=== PATIENT | male | born 1965 | race Caucasian/White ===

== ENCOUNTER 2019-08-18 21:45 | Inpatient (IN) | payer MEDICARE, MEDICAID, SELFPAY ==
[2019-08-18 21:48] VITALS: BP 116/69; PULSE 109; RESP 16; TEMP 35.5; O2SAT 98; BMI 23.5
--- NOTE | 2019-08-18 22:42 | CT_ITS ---
STUDY: CT ABDOMEN AND PELVIS WITHOUT CONTRAST REASON FOR EXAM: Male, 54 years old patient with abdominal pain, back pain and vomiting. Blood glucose of 20 on arrival to ER. RADIATION DOSAGE (If Supplied By Facility): CTDIvol = ( 8.19 ) mGy, DLP = ( 452.35 ) mGycm TECHNIQUE: Transaxial images were obtained from the dome of the diaphragm to the symphysis pubis without oral contrast, and without intravenous contrast. Sagittal and coronal images were reconstructed. Several images have a respiratory artifact. Individualized dose optimization techniques were used for this CT. COMPARISON: None. FINDINGS: The visualized lung bases are unremarkable. The visualized portions of the heart are within normal limits. There is decreased attenuation of the liver consistent with steatosis. Normal gallbladder and extrahepatic biliary system. Normal spleen. Normal pancreas. Normal bilateral adrenal glands. Normal right kidney. Normal left kidney. The stomach is very distended with fluid. There is no obvious dilated bowel, ascites or pneumoperitoneum. There is minimal stool visible in the colon with most of the colon nondistended. There is fatty infiltration of the hepatic flexure colon wall. The appendix is visualized and appears normal. There is minimal atherosclerotic calcification of the abdominal aorta, without a demonstrated aneurysm. The IVC is slitlike suggesting hypovolemia and/or dehydration. Normal retroperitoneum. Urinary bladder is not distended secondary to Perez catheter. Normal visualized prostate gland. There is diastases recti with what may represent an umbilical hernia containing fat. Respiratory motion of the ribs mimics potential rib fracture. A rib fracture cannot be excluded particularly on the right. Imaged thoracic and lumbar vertebral bodies have normal height and alignment. CT/Abdomen/Pelvis without Cont IMPRESSION: 1. Slitlike IVC suggests the sequela of hypovolemia and dehydration. 2. Hepatic steatosis. 3. Fluid-filled distended stomach suggests possible sequela of gastroparesis. 4. Nonspecific thickening of the wall of the hepatic flexure of the colon may be the result of previous or chronic infection or inflammation. Electronically Signed: Kanwal Morales MD at 0:44 EST , Service support ,
--- NOTE | 2019-08-18 22:43 | RAD_ITS ---
STUDY: X-RAY CHEST REASON FOR EXAM: Male, 54 years old. VOMITING SINCE TUESDAY, DIARRHEA STARTED TODAY. WEAKNESS AND CONFUSION TECHNIQUE: Single AP portable view of the chest. COMPARISON: None. FINDINGS: The lungs are clear and expanded. There is no demonstrated pleural abnormality. Normal size heart. Normal mediastinum and berta. Normal visualized pulmonary arteries. Normal visualized aortic arch and descending thoracic aorta. There are diffuse degenerative changes of the visualized thoracic spine. Normal visualized ribs, clavicles, and shoulders. There is no demonstrated abnormality of the visualized soft tissue structures of the upper abdomen. RAD/Chest 1 View (Portable) IMPRESSION: No acute process Electronically Signed: Elie Davis MD at 23:52 EST , Service support ,
[2019-08-18 22:47] LABS: Absolute Lymphocyte Count 5.88 X10^3/uL (0.83-4.51); Absolute Neutrophil Count 20.9 X10^3/uL (2.0-7.7); Basophil# 0.15 X10^3/uL; Basophil% 0.5 % (0-1); Eosinophil# 0.06 X10^3/uL; Eosinophils% 0.2 % (0-5); Hematocrit 50.1 % (40-54); Hemoglobin 15.3 g/dL (13.0-16.5); Lymphocyte # 5.88 X10^3/ul (4.0); Lymphocyte % 20.6 % (19-41); Mean Corp Hgb Conc 30.5 g/dL (32-36); Mean Corpuscular Hgb 29.1 pg (27.0-32.0); Mean Corpuscular Volume 95.2 fL (80-94); Mean Platelet Vol. 10.7 fl (6.2-12.0); Monocyte# 1.11 X10^3/uL; Monocyte% 3.9 % (0-10); NRBC Flagged by Analyzer 0 % (0-5); Neutrophil # 20.94 X10^3/uL (2.7-7.7); Neutrophil % 73.2 % (47-70); POSITIVE DIFFERENTIAL YES; Platelet Count 389 K/mm3 (150-450); RBC Distribution Width CV 13.8 % (11.6-14.6); RBC Distribution Width SD 48.6 fl (35.1-43.9); Red Blood Count 5.26 M/mm3 (4.6-6.2); White Blood Count 28.6 K/mm3 (4.4-11.0)
--- NOTE | 2019-08-18 22:49 | ED.VIS.GEN ---
History of Present Illness Chief Complaint: Weakness Narrative: Patient is a 54-year-old male who presents with nausea vomiting and diarrhea. He has had nausea and vomiting for the past 2 to 3 days up to 4-5 episodes per day. Much of the history is provided by his sister as he is disoriented. They noted that he was disoriented today and the patient stated he felt like he was on drugs. He also developed diarrhea today. He complains of lower back pain. No abdominal pain. He is also complaining of sore throat. He was seen at a [facility] yesterday and prescribed an oral solution to swish and spit of viscous lidocaine, Benadryl, antacid. Past Medical History - Allergies and Home Meds Allergies/Adverse Reactions: Allergies No Known Allergies Allergy (Verified 08/18/19 21:50) Primary Care Physician: Alexa Cramer [Primary Care Provider] - Past Medical History: - - Diabetes, hypertension, hyperlipidemia Review of Systems All systems negative except as indicated General: Denies: Fever Eyes: Denies: Visual changes - bilaterally ENT: Reports: Sore throat. Denies: Bilateral ear pain Cardiovascular: Denies: Chest pain Respiratory: Denies: Dyspnea Gastrointestinal: Reports: Nausea, Vomiting, Diarrhea. Denies: Abdominal pain Musculoskeletal: Reports: Back pain. Denies: Myalgias, Arthralgias Skin: Denies: Rash Neurological: Reports: - - Confusion. Denies: Headache Endocrine: Denies: Polyuria Hematologic: Denies: Easy bruising Allergy: Denies: Uticaria Physical Exam Vital Signs/Narrative: Vital Signs Temp Pulse Resp BP Pulse Ox 08/18/19 21:48 96 F L 109 H 16 116/69 98 Inital Vital Signs reviewed: Yes General: No Acute Distress Head: Normocephalic Eyes: EOMI ENT: Dry mucous membranes Neck: Supple Cardiovascular: Regular rhythm, Tachycardia Respiratory: No distress, CTA bilaterally Abdomen: Soft, Nontender, Nondistended Back: Nontender. Negative for: CVA tenderness Extremities: Nontender Skin: Normal color Neurological: - - Patient is alert but disoriented Psychological: Normal affect Diagnostic/Tx/Re-eval Impressions Abdomen/Pelvis CT 08/18/19 22:42 IMPRESSION: 1. Slitlike IVC suggests the sequela of hypovolemia and dehydration. 2. Hepatic steatosis. 3. Fluid-filled distended stomach suggests possible sequela of gastroparesis. 4. Nonspecific thickening of the wall of the hepatic flexure of the colon may be the result of previous or chronic infection or inflammation. Electronically Signed: Kanwal Morales MD at 0:44 EST , Service support , Chest X-Ray 08/18/19 22:43 IMPRESSION: No acute process Electronically Signed: Elie Davis MD at 23:52 EST , Service support , 08/18/19 22:42 CT Abd [Abdomen/Pelvis without Cont] [CT] Stat 08/18/19 22:43 CXR [Chest 1 View (Portable)] [RAD] Stat 08/19/19 00:01 Abdomen Single View (Portable) [RAD] Stat 08/18/19 23:30 Mucosa - Nasopharyngeal Influenza Types A,B Direct FA ([facility]) - Final Laboratory Results 08/18/19 08/18/19 08/18/19 22:39 22:39 22:39 WBC 28.6 H RBC 5.26 Hgb 15.3 Hct 50.1 MCV 95.2 H MCH 29.1 MCHC 30.5 L RDW Std Deviation 48.6 H RDW Coeff of Sotero 13.8 Plt Count 389 MPV 10.7 Immature Gran % (Auto) 1.600 H Neut % (Auto) 73.2 H Lymph % (Auto) 20.6 [place] % (Auto) 3.9 Eos % (Auto) 0.2 Baso % (Auto) 0.5 Absolute Neuts (auto) 20.9 H Absolute Lymphs (auto) 5.88 H Nucleated RBC % 0 Differential Comment SCANNED RBC Morphology NORM C+C PT 15.2 H INR 1.2 APTT 33.4 Sodium 139 Potassium 3.1 L Chloride 85 L Carbon Dioxide 7.0 L* Anion Gap 47 H BUN 86 H Creatinine 11.30 H* Estim Creat Clear Calc 7.15 Est GFR (MDRD) Af Amer 6 L Est GFR (MDRD) Non-Af 5 L BUN/Creatinine Ratio 7.6 L Glucose 27 L* Lactic Acid Calcium 9.8 Total Bilirubin 0.40 Direct Bilirubin 0.20 AST 25 ALT 51 Alkaline Phosphatase 116 Total Protein 8.8 H Albumin 4.3 Globulin 4.5 H Lipase 229 Urine Color Urine Clarity Urine pH Ur Specific [place] Urine Protein Urine Glucose (UA) Urine Ketones Urine Occult Blood Urine Nitrite Urine Bilirubin Urine Urobilinogen Ur Leukocyte Esterase Urine RBC Urine WBC Ur Squamous Epith Cells Amorphous Sediment Urine Bacteria Hyaline Casts Coarse Granular Casts Urine Mucus POC Glucose 08/18/19 08/18/19 08/18/19 22:39 22:44 23:17 WBC RBC Hgb Hct MCV MCH MCHC RDW Std Deviation RDW Coeff of Sotero Plt Count MPV Immature Gran % (Auto) Neut % (Auto) Lymph % (Auto) [place] % (Auto) Eos % (Auto) Baso % (Auto) Absolute Neuts (auto) Absolute Lymphs (auto) Nucleated RBC % Differential Comment RBC Morphology PT INR APTT Sodium Potassium Chloride Carbon Dioxide Anion Gap BUN Creatinine Estim Creat Clear Calc Est GFR (MDRD) Af Amer Est GFR (MDRD) Non-Af BUN/Creatinine Ratio Glucose Lactic Acid 26.3 H* Calcium Total Bilirubin Direct Bilirubin AST ALT Alkaline Phosphatase Total Protein Albumin Globulin Lipase Urine Color Urine Clarity Urine pH Ur Specific [place] Urine Protein Urine Glucose (UA) Urine Ketones Urine Occult Blood Urine Nitrite Urine Bilirubin Urine Urobilinogen Ur Leukocyte Esterase Urine RBC Urine WBC Ur Squamous Epith Cells Amorphous Sediment Urine Bacteria Hyaline Casts Coarse Granular Casts Urine Mucus POC Glucose 24 L* 237 H 08/18/19 23:36 WBC RBC Hgb Hct MCV MCH MCHC RDW Std Deviation RDW Coeff of Sotero Plt Count MPV Immature Gran % (Auto) Neut % (Auto) Lymph % (Auto) [place] % (Auto) Eos % (Auto) Baso % (Auto) Absolute Neuts (auto) Absolute Lymphs (auto) Nucleated RBC % Differential Comment RBC Morphology PT INR APTT Sodium Potassium Chloride Carbon Dioxide Anion Gap BUN Creatinine Estim Creat Clear Calc Est GFR (MDRD) Af Amer Est GFR (MDRD) Non-Af BUN/Creatinine Ratio Glucose Lactic Acid Calcium Total Bilirubin Direct Bilirubin AST ALT Alkaline Phosphatase Total Protein Albumin Globulin Lipase Urine Color Ashli Urine Clarity Sl. Cloudy Urine pH 5.0 Ur Specific [place] 1.025 Urine Protein 500 H Urine Glucose (UA) Normal Urine Ketones 5 H Urine Occult Blood 25 H Urine Nitrite Positive H Urine Bilirubin 6 H Urine Urobilinogen 1 H Ur Leukocyte Esterase 100 H Urine RBC 0 SEEN Urine WBC 5-10 SEEN Ur Squamous Epith Cells 5-10 SEEN Amorphous Sediment 3+ Urine Bacteria 1+ Hyaline Casts 25-50 SEEN Coarse Granular Casts 0-5 SEEN Urine Mucus 0 SEEN POC Glucose - Medical Decision Making BGT on arrival to the room was 23. There is a shortage of D50, initially D25 was ordered but we then recognized that this was the pediatric syringes that were available. We were then able to get D50 from pharmacy. Repeat blood sugar greater than 200. Patient was initially treated with IV fluids, Toradol, Zofran for symptomatic relief. After dextrose patient became more alert. He began to complain of abdominal pressure. Labs began to return. Patient was found to be in acute renal failure with a creatinine of 11 and severe acidosis with a bicarbonate of 7. Patient has a white blood cell count of greater than 28,000 and was empirically covered with IV Zosyn. VBG was obtained which shows pH 6.8, PCO2 19, PO2 122. Lactic acid is 26. Hepatic function and lipase are unremarkable. Urinalysis does show positive nitrites. Patient felt like he needed to void so a Perez catheter was placed. He only had about 50 cc of dark yellow urine out. CT of the abdomen and pelvis showed a significantly distended stomach, possible gastroparesis. Additionally had findings of hepatic steatosis as well as some possible thickening of the hepatic flexure of the colon. NG placed and had about 1 L of bilious material out and had significant relief of his abdominal pressure. A total of 3 L of IV fluid was given here in the emergency department. It is possible that everything is related to gastroparesis with severe hypovolemia but infectious process is not ruled out. On reevaluation patient has no abdominal pain. Abdomen remains soft. Patient will be discussed with the hospitalist and admitted. - Critical Care Time Critical care time (excluding procedures): 30-74 minutes, Discussing w/Patient &/or Family/Mechanical Maintenance Supervisor, Discussing w/Consultants, Performing Direct Patient Care at Bedside ED Disposition - Plan for ED Patient: Disposition: Acute Care [facility] Diagnosis: Metabolic acidosis, Gastroparesis, Lactic acidosis, UTI (urinary tract infection), Acute renal failure Referrals: Alexa Cramer [Primary Care Provider] -
[2019-08-18 22:50] LABS: Bedside Glucose 24 mg/dL (70-110)
[2019-08-18 22:53] LABS: Differential Indicated SCAN CRITERIA MET
[2019-08-18 22:58] LABS: International Normalized Ratio 1.2; Prothrombin Time (Protime)PT. 15.2 SECONDS (11.7-14.9)
[2019-08-18 22:59] LABS: Partial Thromboplast Time 33.4 Seconds (24.1-36.2)
[2019-08-18] MEDS: Ketorolac 30 MG/ML Syringe IV (23:02)
[2019-08-18] MEDS: Ondansetron 4 MG/2 ML Vial IV (23:02)
[2019-08-18] MEDS: 0.9% Normal Saline 1,000 ML 1000 ML IV (23:03)
[2019-08-18] MEDS: Dextrose 50%-Water 25 GM/50 ML DISP.SYRIN IV (23:05)
[2019-08-18 23:10] LABS: AST(SGOT) 25 U/L (15-37); Alanine Aminotransfer ALT/SGPT 51 U/L (16-61); Albumin, Serum 4.3 g/dL (3.2-5.0); Alkaline Phosphatase 116 U/L (45-117); Anion Gap 47 (5-15); BUN 86 mg/dL (7-18); BUN/Creat Ratio 7.6 RATIO (10-20); Calcium,Total 9.8 mg/dL (8.5-10.1); Chloride 85 mmol/L (98-107); EST Glomerular Filtration Rate 5 mL/min (>60); Est Glom Filt Rate - Afr Amer 6 mL/min (>60); Estimated Creatinine Clearance 7.15 ml/min; Globulin 4.5 g/dL (2.2-4.2); Glucose 27 mg/dL (74-106); Lipase 229 U/L (73-393); Potassium 3.1 mmol/L (3.5-5.1); Protein, Total 8.8 g/dL (6.4-8.2); Sodium Level 139 mmol/L (136-145)
[2019-08-18 23:12] VITALS: BP 158/117; PULSE 120; RESP 13; O2SAT 100
[2019-08-18 23:16] LABS: Differential Comment SCANNED; Red Cell Morphology NORM C+C NORMAL (NORM C&C)
[2019-08-18 23:21] LABS: Bedside Glucose 237 mg/dL (70-110)
[2019-08-18] MEDS: Morphine 4 MG/ML Syringe IV (23:24)
[2019-08-18 23:38] LABS: Lactic Acid 26.3 mmol/L (0.4-1.9)
--- NOTE | 2019-08-18 23:38 | ED.RN ---
notified Dr. Garza of lactic 26.3
[2019-08-18] MEDS: 0.9% Normal Saline 1,000 ML 999 ML IV (23:40)
[2019-08-18 23:42] LABS: Mucous, Urine 0 SEEN /hpf (<or=2+); Red Blood Cells-Urine 0 SEEN /hpf (0-5)
[2019-08-18 23:45] LABS: Color, Urine Amber (Yellow); Glucose, Dipstick Normal (Normal); Ketone-Dipstick 5 mg/dl (Negative); Leukocyte Esterase-Dipstick 100 /ul (Negative); Nitrite-Dipstick Positive (Negative); Occult Blood-Urine 25 /ul (Negative); Protein-Dipstick 500 mg/dl (Negative); Specific Gravity, Urine 1.025 (1.002-1.030); Urine Clarity Sl. Cloudy (Clear); Urine Urobilinogen 1 mg/dl (Normal)
[2019-08-18 23:46] LABS: Urine Bilirubin Dipstick 6 mg/dL (Negative)
[2019-08-18 23:59] LABS: Hyaline Cast 25-50 SEEN /lpf (0-5); Squamous Epithelial Cells - UA 5-10 SEEN /hpf (0-5)
[2019-08-19] VITALS (52 sets, daily range): BP systolic 68–137; BP diastolic 45–85; PULSE 110–139; RESP 9–48; TEMP 35.4–36.6; O2SAT 95–100; BMI 27.8
[2019-08-19] LABS: Amorphous Sediment 3+; Bacteria 1+ /hpf (None Seen); Coarse Granular Cast 0-5 SEEN /lpf (0-5 /lpf); White Blood Cells 5-10 SEEN /hpf (0-5)
--- NOTE | 2019-08-19 00:01 | RAD_ITS ---
HISTORY: NG tube placement FINDINGS: # of images incl. paperwork: 1 Frontal view of the chest and abdomen demonstrates a nasogastric tube in the stomach in adequate position. RAD/Abdomen Single View (Portable) IMPRESSION: NGT in adequate position. at 0203 Reported and signed by: Young Smith MD Electronically Signed: Young Smith MD at 2:02 EST Tel , Service support ,
--- NOTE | 2019-08-19 00:41 | CPS ---
Addendum entered by Patricia Correa 08/19/19 00:45: DR KHAN was called results of vbg not Dr Arita Original Note: critical values from venous blood gas were called to Dr Arita 08-18-19 2350 ph 6.88 pco2 19.2 hco3 03.6
[2019-08-19] MEDS: 0.9% Normal Saline 1,000 ML 999 ML IV (01:11)
[2019-08-19 01:13] LABS: Blood Gas Specimen Type VEN; O2 Delivery Device Room Air; SITE OTHER
[2019-08-19 01:14] LABS: Time Given 2345
[2019-08-19 01:15] LABS: VBG Bicarbonate 4 mmol/L (22-26); VBG PO2 122 mmHg (25-40); VBG pCO2 19.2 mmHg (41-51); VBG pH 6.88 (7.32-7.42)
[2019-08-19 01:16] LABS: VBG BASE EXCESS -30 mmol/L (-1.0-3.5); VBG Oxygen Content < 5 mmol/L (23-33); VBG SO2 95 % (50-70)
--- NOTE | 2019-08-19 01:21 | HP.PCM_ITS ---
Problem List (1) Septic shock Status: Acute (2) Hypoglycemia Status: Acute (3) Metabolic acidosis Status: Acute (4) Gastroparesis Status: Acute (5) Lactic acidosis Status: Acute (6) UTI (urinary tract infection) Status: Acute (7) Acute renal failure Status: Acute History of Present Illness Date of Admission: 08/19/19 Chief Complaint: NAUSEA, VOMITING AND DIARRHEA The patient is a 54 year old M with a significant history of mental retardation; anxiety disorder; ADHD; hyperlipidemia; hypertension; and diabetes who presents emergency department with a 3-day history of nausea and vomiting. On the day of presentation he also developed diarrhea. However over the past 2 to 3 days he had decreased urine output and his bowels had not moved except on the day of presentation where he had 2 loose bowel movements; one at home and one at emergency department. At the emergency department he had tachycardia; and tachypnea. He had leukocytosis with a white count of 28,600; and bandemia. VBG showed a pH of seven 6.88. His bicarbonate was 7.0. His glucose was 27. And his lactic acid was 26.3. His creatinine was 11.30. His estimated creatinine clearance was 7.15. And his GFR was 5. Abdominal and pelvis CT showed slitlike IVC suggesting sequela of hypovolemia and dehydration as well as fluid-filled distended stomach suggesting possible sequela of gastroparesis; among others. NG tube and Perez catheter was placed at emergency department. His urinalysis was abnormal. A day before presentation patient went to a [facility] for sore throat and was found to have enlarged tonsils and he was given a swish and swallow medication of lidocaine/Benadryl/antacids. Past Medical History Medical History: Medical History (Last Updated 08/19/19 @ 03:[address] Ranjan Rocha MD) Diabetes mellitus E11.9 Hyperlipidemia E78.5 Hypertension I10 Allergies No Known Allergies Allergy (Verified 08/18/19 21:50) Home Medications: Ambulatory Orders Medication Instructions Recorded Atorvastatin Calcium [Lipitor] 20 mg PO QHS 08/19/19 Cholecalciferol (VIT D3) [Vitamin 50,000 unit PO QWEEK 08/19/19 D] Glimepiride 1 mg PO DAILY 08/19/19 Hydrochlorothiazide 25 mg PO DAILY 08/19/19 Losartan Potassium 50 mg PO DAILY 08/19/19 Metformin HCl 1,000 mg PO BID 08/19/19 Nitroglycerin 0.4 mg SL DAILY PRN 08/19/19 Ondansetron [Zofran Odt] 4 - 8 mg PO Q8H PRN PRN 08/19/19 Surgical History: - - Tube in tympanic membrane Lives: With Family Smoking Status: Current every day smoker Tobacco Use: Cigarettes Alcohol: None - *Family History Maternal History Items: Diabetes, Hypertension, - - Anxiety Paternal History Items: Seizures Review of Systems Constitutional: Reports: Anorexia, Malaise. Denies: Weight Change HEENT: Denies: Head Aches, Sinus Congestion, Sinus Drainage Cardiovascular: Denies: Chest Pain, Palpitations Respiratory: Denies: Cough, Shortness of breath at rest, Sputum production Gastrointestinal: Reports: Abdominal Pain, Nausea, Vomiting Genitourinary: Reports: Frequency - Decreased urination. Denies: Dysuria Musculoskeletal: Denies: Joint Pain, Joint Tenderness Skin: Denies: Rash, Wounds Neurological: Denies: Numbness, Tingling, Focal weakness Psychiatric: Denies: Anxiety, Depression, Homicidal Ideations, Suicidal Ideations Hematologic/ Lymphatic: Denies: Easy Bruising, Easy Bleeding VTE Information - Inpt Only VTE Present on Admission: No VTE Mechan Device Prophylaxis: None VTE Pharm Prophylaxis ordered?: Yes Patient Problems: Active and Suspected Problems (Last Updated 08/19/19 @ 03:[address] Ranjan Rocha MD) Metabolic acidosis (Acute) Gastroparesis (Acute) Lactic acidosis (Acute) UTI (urinary tract infection) (Acute) Acute renal failure (Acute) Septic shock (Acute) Hypoglycemia (Acute) - Physical Exam Vitals/I&O's: Vital Signs Temp Pulse Resp BP Pulse Ox 96 F L 116 H 33 H 137/77 H 99 08/18/19 21:48 08/19/19 00:34 08/19/19 00:34 08/19/19 00:34 08/19/19 00:34 Oxygen Delivery Method Room Air Weight: 68.039 kg Body Mass Index (BMI) 23.5 Finger Stick Blood Glucose 24 Intake and Output for Last 24 Hours 08/17/19 08/18/19 08/19/19 23:59 23:59 23:59 Intake Total 1100 / 1100 Balance 1100 / 1100 General: Alert, Oriented x3, Cooperative HEENT: Atraumatic, EOMI, Normocephalic Neck: Supple, No JVD, Negative Carotid Bruits Lungs: Clear to auscultation, Normal air movement, Tachypneic, Using Accessory Muscles Cardiovascular: Normal S1, Normal S2, No murmurs, Tachycardic Abdomen: Soft, Non Tender, Hypoactive Bowel Sounds Extremities: No edema, Capillary Refill Less than 3 Seconds Skin: No rashes, No breakdown Musculoskeletal: No Tenderness to Palpation of Joints or Extremities Neurological: Cranial nerves II-XII grossly intact Psych/Mental Status: Restless Microbiology Past 72 Hours 08/18/19 23:30 Mucosa - Nasopharyngeal Influenza Types A,B Direct FA ([facility]) - Final Laboratory Results 08/18/19 22:39: WBC 28.6 H, RBC 5.26, Hgb 15.3, Hct 50.1, MCV 95.2 H, MCH 29.1, MCHC 30.5 L, RDW Std Deviation 48.6 H, RDW Coeff of Sotero 13.8, Plt Count 389, MPV 10.7, Immature Gran % (Auto) 1.600 H, Neut % (Auto) 73.2 H, Lymph % (Auto) 20.6, [place] % (Auto) 3.9, Eos % (Auto) 0.2, Baso % (Auto) 0.5, Absolute Neuts (auto) 20.9 H, Absolute Lymphs (auto) 5.88 H, Nucleated RBC % 0, Differential Comment SCANNED, RBC Morphology NORM C+C 08/18/19 22:39: PT 15.2 H, INR 1.2, APTT 33.4 08/18/19 22:39: Sodium 139, Potassium 3.1 L, Chloride 85 L, Carbon Dioxide 7.0 L*, Anion Gap 47 H, BUN 86 H, Creatinine 11.30 H*, Estim Creat Clear Calc 7.15, Est GFR (MDRD) Af Amer 6 L, Est GFR (MDRD) Non-Af 5 L, BUN/Creatinine Ratio 7.6 L, Glucose 27 L*, Calcium 9.8, Total Bilirubin 0.40, Direct Bilirubin 0.20, AST 25, ALT 51, Alkaline Phosphatase 116, Total Protein 8.8 H, Albumin 4.3, Globulin 4.5 H, Lipase 229 08/18/19 22:39: Lactic Acid 26.3 H* 08/18/19 22:44: POC Glucose 24 L* 08/18/19 23:17: POC Glucose 237 H 08/18/19 23:36: Urine Color Ashli, Urine Clarity Sl. Cloudy, Urine pH 5.0, Ur Specific [place] 1.025, Urine Protein 500 H, Urine Glucose (UA) Normal, Urine Ketones 5 H, Urine Occult Blood 25 H, Urine Nitrite Positive H, Urine Bilirubin 6 H, Urine Urobilinogen 1 H, Ur Leukocyte Esterase 100 H, Urine RBC 0 SEEN, Urine WBC 5-10 SEEN, Ur Squamous Epith Cells 5-10 SEEN, Amorphous Sediment 3+, Urine Bacteria 1+, Hyaline Casts 25-50 SEEN, Coarse Granular Casts 0-5 SEEN, Urine Mucus 0 SEEN 08/18/19 23:45: Specimen Type SCARLET, Sample Site OTHER, VBG pH 6.88 L*, VBG pO2 122 H, VBG O2 Sat (Calc) 95 H, VBG O2 Content < 5 L, VBG Base Excess -30 L, POC Mix VBG pCO2 Pt Tmp 19.2 L, O2 Delivery Device Room Air, Blood Gas Notified Whom ED MD, Blood Gas Notified Time 2345 Current Medications Sodium Chloride () 1,000 mls @ 50 mls/hr IV .Q20H BALTAZAR Assessment/Plan All Active Problems (Last Updated 08/19/19 @ 03:[address] Ranjan Rocha MD) Metabolic acidosis (Acute) Gastroparesis (Acute) Lactic acidosis (Acute) UTI (urinary tract infection) (Acute) Acute renal failure (Acute) Septic shock (Acute) Hypoglycemia (Acute) The patient is a 54 year old M with a significant history of mental retardation; anxiety disorder; ADHD; hyperlipidemia; hypertension; and diabetes who presents emergency department with nausea; vomiting; diarrhea and found to have tachycardia; tachypnea; leukocytosis with a white count of 28,600; and bandemia; VBG with pH of seven 6.88; bicarbonate of 7.0; glucose of 27 and lactic acid of 26.3 ; creatinine of 11.30; abnormal urinalysis; and Abdominal and pelvis CT showed slitlike IVC suggesting sequela of hypovolemia and dehydration as well as fluid-filled distended stomach suggesting possible sequela of gastroparesis; consistent with septic shock and probable diabetic gastroparesis. Septic shock Lactic acid: 26.3 RR: Highest documented of 33. Heart rate: Highest documented of 120 Patient with abdominal symptoms and abnormal urinalysis. Septic shock likely from gastroenteritis and UTI. Blood culture ?2 is pending Urine culture ordered. Influenza screen is negative. Received IV fluids 30 MS per kilogram bolus per septic shock protocol at the emergency department. Antibiotics: Patient was given Zosyn in the emergency department Zosyn continued. 50 amp of bicarbonate ordered and then dextrose with bicarbonate infusion. Hold home blood pressure medications in the setting of blood pressure trending low. Morphine as needed for pain. Enteropathogenic panel. C. difficile ordered. Zofran PRN for nausea and vomiting. Compazine PRN for nausea and vomiting. Acid Polymerization Operator consult. NASRIN Creatinine of 11.30. Estimated creatinine clearance of 7.15. GFR of 5. Likely prerenal from CVA dehydration and intrinsic renal from toxins from septic shock. Hold home hydrochlorthiazide and losartan. Avoid nephrotoxic's. IV fluids as above. Urinary studies. Nephrology consult. Diabetic gastroparesis with hyperglycemia Patient received dextrose infusion at emergency department with good response.. Trend blood glucose. Hold home glimepiride and metformin. History of hypertension Hold home blood pressure medication in the setting of blood pressure trended on the low side. Tobacco abuse Counseled Nicotine patch ordered. DVT prophylaxis Subcutaneous heparin. Code Visit Inpatient E&M: 67888 Init Hosp L3
--- NOTE | 2019-08-19 02:26 | SEPSISNOTE ---
Sepsis Note - Physical Exam/Vitals Objective: Abdomen/Pelvis CT 08/18/19 22:42 IMPRESSION: 1. Slitlike IVC suggests the sequela of hypovolemia and dehydration. 2. Hepatic steatosis. 3. Fluid-filled distended stomach suggests possible sequela of gastroparesis. 4. Nonspecific thickening of the wall of the hepatic flexure of the colon may be the result of previous or chronic infection or inflammation. Electronically Signed: Kanwal Morales MD at 0:44 EST , Service support , Chest X-Ray 08/18/19 22:43 IMPRESSION: No acute process Electronically Signed: Elie Davis MD at 23:52 EST , Service support , KUB X-Ray 08/19/19 00:01 IMPRESSION: NGT in adequate position. at 0203 Reported and signed by: Young Smith MD Electronically Signed: Young Smith MD at 2:02 EST Tel , Service support , Temp Pulse Resp BP Pulse Ox 96 F L 110 H 28 H 97/60 100 08/18/19 21:48 08/19/19 02:15 08/19/19 02:15 08/19/19 02:15 08/19/19 02:15 08/18/19 08/18/19 08/18/19 23:45 23:36 23:17 WBC RBC Hgb Hct MCV MCH MCHC RDW Std Deviation RDW Coeff of Sotero Plt Count MPV Immature Gran % (Auto) Neut % (Auto) Lymph % (Auto) [place] % (Auto) Eos % (Auto) Baso % (Auto) Absolute Neuts (auto) Absolute Lymphs (auto) Nucleated RBC % Differential Comment RBC Morphology PT INR APTT Specimen Type SCARLET Sample Site OTHER VBG pH 6.88 L* VBG pO2 122 H VBG O2 Sat (Calc) 95 H VBG O2 Content < 5 L VBG Base Excess -30 L POC Mix VBG pCO2 Pt Tmp 19.2 L O2 Delivery Device Room Air Blood Gas Notified Whom ED Blood Gas Notified Time 2345 Sodium Potassium Chloride Carbon Dioxide Anion Gap BUN Creatinine Estim Creat Clear Calc Est GFR (MDRD) Af Amer Est GFR (MDRD) Non-Af BUN/Creatinine Ratio Glucose Lactic Acid Calcium Total Bilirubin Direct Bilirubin AST ALT Alkaline Phosphatase Total Protein Albumin Globulin Lipase Urine Color Ashli Urine Clarity Sl. Cloudy Urine pH 5.0 Ur Specific [place] 1.025 Urine Protein 500 H Urine Glucose (UA) Normal Urine Ketones 5 H Urine Occult Blood 25 H Urine Nitrite Positive H Urine Bilirubin 6 H Urine Urobilinogen 1 H Ur Leukocyte Esterase 100 H Urine RBC 0 SEEN Urine WBC 5-10 SEEN Ur Squamous Epith Cells 5-10 SEEN Amorphous Sediment 3+ Urine Bacteria 1+ Hyaline Casts 25-50 SEEN Coarse Granular Casts 0-5 SEEN Urine Mucus 0 SEEN POC Glucose 237 H 08/18/19 08/18/19 08/18/19 22:44 22:39 22:39 WBC RBC Hgb Hct MCV MCH MCHC RDW Std Deviation RDW Coeff of Sotero Plt Count MPV Immature Gran % (Auto) Neut % (Auto) Lymph % (Auto) [place] % (Auto) Eos % (Auto) Baso % (Auto) Absolute Neuts (auto) Absolute Lymphs (auto) Nucleated RBC % Differential Comment RBC Morphology PT INR APTT Specimen Type Sample Site VBG pH VBG pO2 VBG O2 Sat (Calc) VBG O2 Content VBG Base Excess POC Mix VBG pCO2 Pt Tmp O2 Delivery Device Blood Gas Notified Whom Blood Gas Notified Time Sodium 139 Potassium 3.1 L Chloride 85 L Carbon Dioxide 7.0 L* Anion Gap 47 H BUN 86 H Creatinine 11.30 H* Estim Creat Clear Calc 7.15 Est GFR (MDRD) Af Amer 6 L Est GFR (MDRD) Non-Af 5 L BUN/Creatinine Ratio 7.6 L Glucose 27 L* Lactic Acid 26.3 H* Calcium 9.8 Total Bilirubin 0.40 Direct Bilirubin 0.20 AST 25 ALT 51 Alkaline Phosphatase 116 Total Protein 8.8 H Albumin 4.3 Globulin 4.5 H Lipase 229 Urine Color Urine Clarity Urine pH Ur Specific [place] Urine Protein Urine Glucose (UA) Urine Ketones Urine Occult Blood Urine Nitrite Urine Bilirubin Urine Urobilinogen Ur Leukocyte Esterase Urine RBC Urine WBC Ur Squamous Epith Cells Amorphous Sediment Urine Bacteria Hyaline Casts Coarse Granular Casts Urine Mucus POC Glucose 24 L* 08/18/19 08/18/19 22:39 22:39 WBC 28.6 H RBC 5.26 Hgb 15.3 Hct 50.1 MCV 95.2 H MCH 29.1 MCHC 30.5 L RDW Std Deviation 48.6 H RDW Coeff of Sotero 13.8 Plt Count 389 MPV 10.7 Immature Gran % (Auto) 1.600 H Neut % (Auto) 73.2 H Lymph % (Auto) 20.6 [place] % (Auto) 3.9 Eos % (Auto) 0.2 Baso % (Auto) 0.5 Absolute Neuts (auto) 20.9 H Absolute Lymphs (auto) 5.88 H Nucleated RBC % 0 Differential Comment SCANNED RBC Morphology NORM C+C PT 15.2 H INR 1.2 APTT 33.4 Specimen Type Sample Site VBG pH VBG pO2 VBG O2 Sat (Calc) VBG O2 Content VBG Base Excess POC Mix VBG pCO2 Pt Tmp O2 Delivery Device Blood Gas Notified Whom Blood Gas Notified Time Sodium Potassium Chloride Carbon Dioxide Anion Gap BUN Creatinine Estim Creat Clear Calc Est GFR (MDRD) Af Amer Est GFR (MDRD) Non-Af BUN/Creatinine Ratio Glucose Lactic Acid Calcium Total Bilirubin Direct Bilirubin AST ALT Alkaline Phosphatase Total Protein Albumin Globulin Lipase Urine Color Urine Clarity Urine pH Ur Specific [place] Urine Protein Urine Glucose (UA) Urine Ketones Urine Occult Blood Urine Nitrite Urine Bilirubin Urine Urobilinogen Ur Leukocyte Esterase Urine RBC Urine WBC Ur Squamous Epith Cells Amorphous Sediment Urine Bacteria Hyaline Casts Coarse Granular Casts Urine Mucus POC Glucose General: Alert, Oriented x3, Cooperative Lungs: Clear to auscultation, Normal air movement Cardiovascular: Normal S1, Normal S2, Tachycardic Capillary Refill: <3 seconds Peripheral Pulses: Normal Skin Color: [place] - Assessment/Plan Septic shock Received normal saline 30 mm/kg bolus per septic shock protocol. Blood cultures was ordered emergency department follow-up. Urine culture ordered. Trend lactic acid. Place patient on bicarbonate drip because of severe metabolic acidosis. Placed on Zosyn; continue Zosyn.
[2019-08-19 02:49] LABS: Reflex Lactate? Y
[2019-08-19] MEDS: Sodium Bicarbonate 8.4% 50 ML Syringe 50 MEQ IV (02:55)
[2019-08-19] MEDS: Potassium Chloride 10mEq/100mL 10 MEQ/100 ML IV.SOLN. 100 MEQ IV BOLUS (02:58)
[2019-08-19 03:01] LABS: Bedside Glucose 185 mg/dL (70-110)
[2019-08-19 03:01] LABS: Absolute Lymphocyte Count 4.53 X10^3/uL (0.83-4.51); Absolute Neutrophil Count 24.1 X10^3/uL (2.0-7.7); Basophil# 0.11 X10^3/uL; Basophil% 0.3 % (0-1); Eosinophil# 0.03 X10^3/uL; Eosinophils% 0.1 % (0-5); Hematocrit 40.3 % (40-54); Hemoglobin 12.2 g/dL (13.0-16.5); Lymphocyte # 4.53 X10^3/ul (4.0); Lymphocyte % 14.2 % (19-41); Mean Corp Hgb Conc 30.3 g/dL (32-36); Mean Corpuscular Hgb 29.3 pg (27.0-32.0); Mean Corpuscular Volume 96.9 fL (80-94); Mean Platelet Vol. 10.9 fl (6.2-12.0); Monocyte# 2.55 X10^3/uL; NRBC Flagged by Analyzer 0 % (0-5); Neutrophil # 24.11 X10^3/uL (2.7-7.7); Neutrophil % 75.8 % (47-70); POSITIVE COUNT YES; POSITIVE DIFFERENTIAL YES; Platelet Count 318 K/mm3 (150-450); RBC Distribution Width CV 14.1 % (11.6-14.6); RBC Distribution Width SD 50.2 fl (35.1-43.9); Red Blood Count 4.16 M/mm3 (4.6-6.2); White Blood Count 31.9 K/mm3 (4.4-11.0)
[2019-08-19 03:10] LABS: Magnesium 2.4 mg/dL (1.6-2.6)
[2019-08-19 03:17] LABS: Differential Indicated SCAN CRITERIA MET
[2019-08-19 03:33] LABS: Differential Comment SCANNED
[2019-08-19 03:36] LABS: Anion Gap 46 (5-15); BUN 79 mg/dL (7-18); BUN/Creat Ratio 7.8 RATIO (10-20); Calcium,Total 7.6 mg/dL (8.5-10.1); Chloride 92 mmol/L (98-107); EST Glomerular Filtration Rate 6 mL/min (>60); Est Glom Filt Rate - Afr Amer 7 mL/min (>60); Estimated Creatinine Clearance 7.16 ml/min; Glucose 178 mg/dL (74-106); Phosphorus 15.6 mg/dL (2.5-4.9); Potassium 4.5 mmol/L (3.5-5.1); Sodium Level 141 mmol/L (136-145)
--- NOTE | 2019-08-19 03:55 | PCM.CONS.GEN ---
Reason for Consult Date of Consultation: 08/19/19 Reason for Consultation: Emergent dialysis access History of Present Illness: The patient is a 54 year old M to the ER due to nausea vomiting and one episode of diarrhea per notes/family.. Patient been feeling very fatigued over the last 4 days he did go to urgent care on Tuesday and was told that his tonsil was a little bit red and it was given swish and swallow for treatment. Patient continued to have increasing nausea and vomiting and did present to the ER. On admission had a white blood cell count of 28, creatinine of 11, lactic acid of 26, blood sugar of 27 was found to be in acute kidney failure and septic with a UTI. Discussed with nephrology and they want to do emergent dialysis, patient was admitted to the ICU. Per family patient had not been feeling well for about 4 days. NG placed in the ER which put out 2 L initially. Past Medical History Medical History: Medical History (Last Updated 08/19/19 @ 03:[address] Ranjan Rocha MD) Diabetes mellitus E11.9 Hyperlipidemia E78.5 Hypertension I10 Allergies No Known Allergies Allergy (Verified 08/18/19 21:50) Home Medications: Ambulatory Orders Medication Instructions Recorded Atorvastatin Calcium [Lipitor] 20 mg PO QHS 08/19/19 Cholecalciferol (VIT D3) [Vitamin 50,000 unit PO QWEEK 08/19/19 D] Glimepiride 1 mg PO DAILY 08/19/19 Hydrochlorothiazide 25 mg PO DAILY 08/19/19 Losartan Potassium 50 mg PO DAILY 08/19/19 Metformin HCl 1,000 mg PO BID 08/19/19 Nitroglycerin 0.4 mg SL DAILY PRN 08/19/19 Ondansetron [Zofran Odt] 4 - 8 mg PO Q8H PRN PRN 08/19/19 Surgical History: - - Tube in tympanic membrane Lives: With Family Smoking Status: Current every day smoker Tobacco Use: Cigarettes Alcohol: None - *Family History Maternal History Items: Diabetes, Hypertension, - - Anxiety Paternal History Items: Seizures Review of Systems Unable to obtain accurate/complete ROS d/t: Unable to obtain patient is lethargic Patient Problems: Active and Suspected Problems (Last Updated 08/19/19 @ 03:[address] Ranjan Rocha MD) Metabolic acidosis (Acute) Gastroparesis (Acute) Lactic acidosis (Acute) UTI (urinary tract infection) (Acute) Acute renal failure (Acute) Septic shock (Acute) Hypoglycemia (Acute) - Physical Exam Vitals/I&O's: Vital Signs Temp Pulse Resp BP Pulse Ox 95.7 F L 113 H 29 H 86/57 L 100 08/19/19 02:45 08/19/19 03:30 08/19/19 03:30 08/19/19 03:30 08/19/19 03:30 Oxygen Delivery Method Room Air Weight: 161 lb 13.109 oz Body Mass Index (BMI) 27.8 Finger Stick Blood Glucose 287 Intake and Output for Last 24 Hours 08/17/19 08/18/19 08/19/19 23:59 23:59 23:59 Intake Total 3176.67 / 3176.67 Output Total 1450 / 1450 Balance 1726.67 / 1726.67 General: Cooperative, Lethargic HEENT: - - NG in place Lungs: Tachypneic Cardiovascular: Tachycardic Abdomen: Soft, Non Tender, Non-Distended Extremities: - - Mottling to the extremities especially at bilateral knees Skin: - - Mottling of some skin Psych/Mental Status: Depressed - Due to septic shock Microbiology Past 72 Hours 08/18/19 23:30 Mucosa - Nasopharyngeal Influenza Types A,B Direct FA (PAULETTE) - Final Laboratory Results 08/18/19 22:39: WBC 28.6 H, RBC 5.26, Hgb 15.3, Hct 50.1, MCV 95.2 H, MCH 29.1, MCHC 30.5 L, RDW Std Deviation 48.6 H, RDW Coeff of Sotero 13.8, Plt Count 389, MPV 10.7, Immature Gran % (Auto) 1.600 H, Neut % (Auto) 73.2 H, Lymph % (Auto) 20.6, [place] % (Auto) 3.9, Eos % (Auto) 0.2, Baso % (Auto) 0.5, Absolute Neuts (auto) 20.9 H, Absolute Lymphs (auto) 5.88 H, Nucleated RBC % 0, Differential Comment SCANNED, RBC Morphology NORM C+C 08/18/19 22:39: PT 15.2 H, INR 1.2, APTT 33.4 08/18/19 22:39: Sodium 139, Potassium 3.1 L, Chloride 85 L, Carbon Dioxide 7.0 L*, Anion Gap 47 H, BUN 86 H, Creatinine 11.30 H*, Estim Creat Clear Calc 7.15, Est GFR (MDRD) Af Amer 6 L, Est GFR (MDRD) Non-Af 5 L, BUN/Creatinine Ratio 7.6 L, Glucose 27 L*, Calcium 9.8, Total Bilirubin 0.40, Direct Bilirubin 0.20, AST 25, ALT 51, Alkaline Phosphatase 116, Total Protein 8.8 H, Albumin 4.3, Globulin 4.5 H, Lipase 229 08/18/19 22:39: Lactic Acid 26.3 H* 08/18/19 22:44: POC Glucose 24 L* 08/18/19 23:17: POC Glucose 237 H 08/18/19 23:36: Urine Color Ashli, Urine Clarity Sl. Cloudy, Urine pH 5.0, Ur Specific [place] 1.025, Urine Protein 500 H, Urine Glucose (UA) Normal, Urine Ketones 5 H, Urine Occult Blood 25 H, Urine Nitrite Positive H, Urine Bilirubin 6 H, Urine Urobilinogen 1 H, Ur Leukocyte Esterase 100 H, Urine RBC 0 SEEN, Urine WBC 5-10 SEEN, Ur Squamous Epith Cells 5-10 SEEN, Amorphous Sediment 3+, Urine Bacteria 1+, Hyaline Casts 25-50 SEEN, Coarse Granular Casts 0-5 SEEN, Urine Mucus 0 SEEN 08/18/19 23:45: Specimen Type SCARLET, Sample Site OTHER, VBG pH 6.88 L*, VBG pO2 122 H, VBG O2 Sat (Calc) 95 H, VBG O2 Content < 5 L, VBG Base Excess -30 L, POC Mix VBG pCO2 Pt Tmp 19.2 L, O2 Delivery Device Room Air, Blood Gas Notified Whom ED , Blood Gas Notified Time 4572 08/19/19 02:44: POC Glucose 185 H 08/19/19 02:45: Sodium 141, Potassium 4.5, Chloride 92 L, Carbon Dioxide 3.0 L*, Anion Gap 46 H, BUN 79 H, Creatinine 10.10 H*, Estim Creat Clear Calc 7.16, Est GFR (MDRD) Af Amer 7 L, Est GFR (MDRD) Non-Af 6 L, BUN/Creatinine Ratio 7.8 L, Glucose 178 H, Calcium 7.6 L, Phosphorus 15.6 H* 08/19/19 02:45: Magnesium 2.4 08/19/19 02:45: Hemoglobin A1c Pending 08/19/19 02:45: WBC 31.9 H*, RBC 4.16 L, Hgb 12.2 L, Hct 40.3, MCV 96.9 H, MCH 29.3, MCHC 30.3 L, RDW Std Deviation 50.2 H, RDW Coeff of Sotero 14.1, Plt Count 318, MPV 10.9, Immature Gran % (Auto) 1.600 H, Neut % (Auto) 75.8 H, Lymph % (Auto) 14.2 L, [place] % (Auto) 8.0, Eos % (Auto) 0.1, Baso % (Auto) 0.3, Absolute Neuts (auto) 24.1 H, Absolute Lymphs (auto) 4.53 H, Nucleated RBC % 0, Differential Comment SCANNED, Diff Path Review October08/19/19 02:45: Lactic Acid Pending Current Medications Enoxaparin Sodium (Lovenox) 30 mg SC DAILY [facility] Glucagon () 1 mg IM .X1 PRN PRN Reason: Hypoglycemia Sodium Bicarbonate 50 meq/ (Dextrose) 1,050 mls @ 150 mls/hr IV .Q7H BALTAZAR Last Admin: 08/19/19 02:59 Dose: 150 mls/hr Documented by: Piperacillin Sod/Tazobactam (Sod 3.375 gm/ Sodium Chloride) 50 mls @ 12.5 mls/hr IV Q12 [facility] Dextrose (Dextrose 10%-Water) 250 mls @ 999 mls/hr IV .Q16M PRN; Protocol PRN Reason: HYPOGLYCEMIA Sodium Chloride () 250 mls @ 15 mls/hr IV .[id number] PRN PRN Reason: Saline Flush Sodium Chloride () 250 mls @ 15 mls/hr IV .[id number] PRN PRN Reason: Additional IVPB Infusion Melatonin (Melatonin) 3 mg PO QHS PRN PRN PRN Reason: INSOMNIA Morphine Sulfate () 2 mg IV Q3H PRN PRN PRN Reason: Pain Score 6-10/10 Nicotine (Nicoderm Cq (Pbkc)) 14 mg TRANSDERM. DAILY BALTAZAR Ondansetron HCl (Zofran) 4 mg IV Q6H PRN PRN PRN Reason: NAUSEA/VOMITING Prochlorperazine Edisylate (Compazine Iv) 5 mg IV Q4H PRN PRN PRN Reason: Breakthrough Nausea/Vomiting Sodium Chloride () 10 - 40 ml IV UD PRN PRN Reason: SALINE FLUSH Assessment/Plan All Active Problems (Last Updated 08/19/19 @ 03:[address] Ranjan Rocha MD) Metabolic acidosis (Acute) Gastroparesis (Acute) Lactic acidosis (Acute) UTI (urinary tract infection) (Acute) Acute renal failure (Acute) Septic shock (Acute) Hypoglycemia (Acute) 54-year-old male with septic shock, acute kidney injury need for emergent dialysis Patient as well as his sister, Delfina, who is POA need for the dialysis catheter. Explained the procedure and risk including but not limited to bleeding, infection, injury to vessel, malfunction of the catheter, and etc. patient and sister had no further questions this time and agreed to proceed. Masha Hernandez M.D. Pager: [phone] [facility] [place] [address] [place] [address], [facility], [address] [place] [address] Office: [phone] Code Visit Inpatient E&M: 30011 Init Hosp L1
[2019-08-19 04:02] LABS: Lactic Acid 24.2 mmol/L (0.4-1.9)
[2019-08-19] MEDS: fentaNYL 100 MCG/2 ML Ampul 50 MCG IV (04:03)
[2019-08-19] MEDS: Heparin 10,000 UNITS/10 ML Vial 10000 UNITS IV (04:24)
--- NOTE | 2019-08-19 04:26 | RAD_ITS ---
We are attempting to reach an attending provider to discuss findings. An addendum with communication details will be sent when the communication is complete. HISTORY: DIALYSIS CATH PLCMNT EXAM: XR Chest 1 View COMPARISON: Yesterday FINDINGS: LINES/DEVICES: Esophagogastric tube's tip is below the diaphragm. A newly placed right large bore right IJ central venous catheter goes into the right subclavian and axillary vein, and does not terminate in the SVC. No pneumothorax LUNGS: No consolidation or effusion. MEDIASTINUM AND CARDIOVASCULAR STRUCTURES: Cardiac silhouette not enlarged. Central airways and mediastinal contour are unremarkable. Athersclerotic plaque within the aortic arch. BONES AND SOFT TISSUES: Thoracic spondylosis. RAD/Chest 1 View (Portable) IMPRESSION: Inadequate positioning of the large bore right IJ catheter. It enters into the right IJ, and then traverses laterally into the subclavian and axillary veins. It should be repositioned. Chronic interestitial changes. No radiographic evidence of acute cardiopulmonary disease. at 0558 Reported and signed by: Young Smith MD Electronically Signed: Young Smith MD at 5:57 EST Tel , Service support ,
--- NOTE | 2019-08-19 04:44 | NURSING ---
Dr Hernandez was in room with patient at 0405 am and started attempt to place temporary dialysis catheter at this time. Catheter was placed at 04:25am chest x-ray was obtained post insertion at this time. Dr Hernandez stated the line was not in the correct place and is now attempting to take patient to OR and place with a flouroscope at this time.
--- NOTE | 2019-08-19 04:46 | NURSING ---
Addendum entered by Ro Huggins 08/19/19 06:06: Placed in femoral vein not artery, error by this RN. Original Note: Dr Hernandez is now going to attempt to place the temporary dialysis catheter in the femoral artery at this time.
--- NOTE | 2019-08-19 05:07 | NURSING ---
0507 Temporary dialysis catheter procedure began by Dr. Hernandez. Location rt femoral. 0511 sucessful line placement. Line Okay to use per .
[2019-08-19] MEDS: Heparin 10,000 UNITS/10 ML Vial 4000 UNITS IV (05:11)
--- NOTE | 2019-08-19 05:23 | PCM.OPRPT ---
Report of Operation Date of Procedure: 08/19/19 Pre-Operative Diagnosis: Acute kidney injury need for dialysis access, sepsis Post-Operative Diagnosis: Same Surgery/Procedure Performed:: Insertion of temporary dialysis catheter right IJ and removal; insertion of temporary dialysis catheter right femoral vein Type of Anesthesia:: Local Estimated Blood Loss (mL): minimal Description of Procedure: Informed consent was obtained from the patient's sister who is the POA. The right neck was prepped draped in usual sterile fashion. A needle trocar was then inserted into the right internal jugular vein with ultrasound guidance and there was good aspiration of venous blood. A wire was then threaded into the needle trocar-passed easily. A small incision was made with an 11 blade knife at the wire entrance site. The dilator x2 with the introducer sheath attached was then placed over the wire via the Seldinger technique. Next the Mahurkar catheter 12 [place] x 16 cm (curved extensions) placed over the wire, initially was a kink in the wire within the catheter did pass easily. The catheter flushed and elvia well with saline. Catheter was also flushed with 1.3 cc of 1-10,000 of heparin. Hemostasis was assured. Dressing was placed at the catheter exit site. Catheter was sutured with 3-0 nylon sutures. The patient tolerated the procedure well. The operative chest x-ray was checked and the catheter was in the right subclavian/axillary vein. This was discussed with the patient as well as patient's sister plan was to remove and place a right femoral dialysis catheter as fluoroscopy is not available at night. The right internal jugular temporary dialysis catheter was removed and pressure was held for 20 minutes, good hemostasis-pressure dressing also placed. The right groin was prepped draped in usual sterile fashion. A needle trocar was then inserted into the right femoral vein with ultrasound guidance and there was good aspiration of venous blood. A wire was then threaded into the needle trocar-passed easily. A small incision was made with an 11 blade knife at the wire entrance site. The dilator x2 with the introducer sheath attached was then placed over the wire via the Seldinger technique. Next the Mahurkar catheter 12 [place] x 20 cm placed over the wire and passed easily. The catheter flushed and elvia well with saline. Catheter was also flushed with 1.3 cc of 1-10,000 of heparin. Hemostasis was assured. Dressing was placed at the catheter exit site. Catheter was sutured with 3-0 nylon sutures. Tolerated procedure well. - Complications Right IJ catheter tracked to the subclavian was removed and pressure held, a right femoral dialysis catheter was placed.
--- NOTE | 2019-08-19 06:35 | CON.PCM_ITS ---
Reason for Consult Date of Consultation: 08/19/19 Reason for Consultation: Septic Shock History of Present Illness: The patient is a 54-year-old male, with a history as outlined below, who presented to the emergency department on August 18 with complaints of altered mentation, generalized weakness, nausea, vomiting and self-limited diarrhea. The patient also reported the presence of low back pain. The patient is a current smoker of 2 packs of cigarettes per day for a multitude of years. He denies any shortness of breath, chest pain or cough. The patient reported to me that he was initially constipated but then did experience several episodes of diarrhea, which has since resolved. The patient is on metformin at home as well for his underlying diabetes mellitus. On presentation to the emergency department, the patient was initially noted to be hypothermic and tachycardic. He was also tachypneic, but able to maintain appropriate oxygen saturations on room air. Laboratory evaluation revealed an elevated white blood cell count to 29,000 with left shift. INR was normal at 1.2. Chemistry profile was notable for a potassium of 3.1, chloride of 85, bicarbonate of 7.0, elevated anion gap to 47, BUN of 86 and creatinine of 11.3. Glucose was low at 27. Lactate was significantly elevated at 26. Urinalysis was positive for nitrites and leukocyte esterase. 1+ urine bacteria was noted. A CT abdomen/pelvis was obtained which revealed hepatic steatosis, fluid-filled, distended stomach suggestive of gastroparesis and nonspecific thickening of the wall of the hepatic flexure of the colon, potentially secondary to chronic infection or inflammation. Initial plain film chest x-ray revealed no acute cardiopulmonary process. The patient was initially placed on IV Zosyn and received supplemental IV fluid hydration. He was admitted to the medical intensive care unit for further management. Overnight, following a discussion with nephrology, the patient was deemed to be a candidate for emergent dialysis. Attempts to place a subclavian temporary hemodialysis catheter was unsuccessful. Therefore, the temporary dialysis catheter was placed in the femoral vein. In addition to the aforementioned, the patient developed non-fluid responsive hypotension, which required the initiation of Levophed. Past Medical History Medical History: Medical History (Last Updated 08/19/19 @ 03:[address] Ranjan Rocha MD) Diabetes mellitus E11.9 Hyperlipidemia E78.5 Hypertension I10 Allergies No Known Allergies Allergy (Verified 08/18/19 21:50) Home Medications: Ambulatory Orders Medication Instructions Recorded Atorvastatin Calcium [Lipitor] 20 mg PO QHS 08/19/19 Cholecalciferol (VIT D3) [Vitamin 50,000 unit PO QWEEK 08/19/19 D] Glimepiride 1 mg PO DAILY 08/19/19 Hydrochlorothiazide 25 mg PO DAILY 08/19/19 Losartan Potassium 50 mg PO DAILY 08/19/19 Metformin HCl 1,000 mg PO BID 08/19/19 Nitroglycerin 0.4 mg SL DAILY PRN 08/19/19 Ondansetron [Zofran Odt] 4 - 8 mg PO Q8H PRN PRN 08/19/19 Surgical History: - - Tube in tympanic membrane Lives: With Family Smoking Status: Current every day smoker Tobacco Use: Cigarettes Alcohol: None - *Family History Maternal History Items: Diabetes, Hypertension, - - Anxiety Paternal History Items: Seizures Review of Systems Constitutional: Reports: Malaise, Weakness, Fatigue Eyes: Denies: Blurred vision, Double vision HEENT: Denies: Head Aches, Sinus Congestion, Sinus Drainage Cardiovascular: Denies: Chest Pain, Palpitations Respiratory: Denies: Cough, Shortness of Breath Gastrointestinal: Reports: Abdominal Pain, Diarrhea, Nausea, Vomiting Genitourinary: Reports: Retention Musculoskeletal: Reports: Back Pain Skin: Denies: Wounds Neurological: Denies: Numbness, Tingling, Focal weakness Psychiatric: Denies: Anxiety, Depression, Homicidal Ideations, Suicidal Ideations Hematologic/ Lymphatic: Reports: Anemia Patient Problems: Active and Suspected Problems (Last Updated 08/19/19 @ 03:[address] Ranjan Rocha MD) Metabolic acidosis (Acute) Gastroparesis (Acute) Lactic acidosis (Acute) UTI (urinary tract infection) (Acute) Acute renal failure (Acute) Septic shock (Acute) Hypoglycemia (Acute) Objective: The patient's most recent lab work, culture data and imaging studies have all been personally reviewed. - Physical Exam Vitals/I&O's: Vital Signs Temp Pulse Resp BP Pulse Ox 97.0 F L 121 H 24 H 105/58 L 100 08/19/19 04:00 08/19/19 06:00 08/19/19 06:00 08/19/19 06:00 08/19/19 06:00 Oxygen Delivery Method Room Air Weight: 161 lb 13.109 oz Body Mass Index (BMI) 27.8 Finger Stick Blood Glucose 287 Intake and Output for Last 24 Hours 08/17/19 08/18/19 08/19/19 23:59 23:59 23:59 Intake Total 3379.80 / 3379.80 Output Total 1450 / 1450 Balance 1929.80 / 1929.80 General: Alert, Cooperative, - - Quite ill in appearance. Sitting upright in bed. HEENT: Atraumatic, PERRLA, Normocephalic Oral: Dry Mucosa Neck: Supple, No Nodes, Trachea Midline Lungs: No rhonchi, No wheeze, No rales, Diminished, Tachypneic Cardiovascular: Normal S1, Normal S2, No murmurs, Tachycardic Abdomen: Bowel Sounds Present, Soft, Non-Distended, Tender Extremities: No clubbing, No cyanosis, No edema, - - Mottled lower extremities. Femoral temporary HD line in place Skin: No breakdown Musculoskeletal: No Tenderness to Palpation of Joints or Extremities Lymphatic: No Cervical, Supraclavicular, or Inguinal Adenopathy Neurological: Neuro grossly intact Psych/Mental Status: Normal Affect, Appropriate Labs (Last 48 Hours) 08/18/19 08/18/19 08/18/19 22:39 22:39 22:39 WBC 28.6 H RBC 5.26 Hgb 15.3 Hct 50.1 MCV 95.2 H MCH 29.1 MCHC 30.5 L RDW Std Deviation 48.6 H RDW Coeff of Sotero 13.8 Plt Count 389 MPV 10.7 Immature Gran % (Auto) 1.600 H Neut % (Auto) 73.2 H Lymph % (Auto) 20.6 Victoria % (Auto) 3.9 Eos % (Auto) 0.2 Baso % (Auto) 0.5 Absolute Neuts (auto) 20.9 H Absolute Lymphs (auto) 5.88 H Nucleated RBC % 0 Differential Comment SCANNED Diff Path Review RBC Morphology NORM C+C PT 15.2 H INR 1.2 APTT 33.4 Specimen Type Sample Site VBG pH VBG pO2 VBG O2 Sat (Calc) VBG O2 Content VBG Base Excess POC Mix VBG pCO2 Pt Tmp O2 Delivery Device Blood Gas Notified Whom Blood Gas Notified Time Sodium 139 Potassium 3.1 L Chloride 85 L Carbon Dioxide 7.0 L* Anion Gap 47 H BUN 86 H Creatinine 11.30 H* Estim Creat Clear Calc 7.15 Est GFR (MDRD) Af Amer 6 L Est GFR (MDRD) Non-Af 5 L BUN/Creatinine Ratio 7.6 L Glucose 27 L* Hemoglobin A1c Lactic Acid Calcium 9.8 Phosphorus Magnesium Total Bilirubin 0.40 Direct Bilirubin 0.20 AST 25 ALT 51 Alkaline Phosphatase 116 Total Protein 8.8 H Albumin 4.3 Globulin 4.5 H Lipase 229 Urine Color Urine Clarity Urine pH Ur Specific [place] Urine Protein Urine Glucose (UA) Urine Ketones Urine Occult Blood Urine Nitrite Urine Bilirubin Urine Urobilinogen Ur Leukocyte Esterase Urine RBC Urine WBC Ur Squamous Epith Cells Amorphous Sediment Urine Bacteria Hyaline Casts Coarse Granular Casts Urine Mucus POC Glucose 08/18/19 08/18/19 08/18/19 22:39 22:44 23:17 WBC RBC Hgb Hct MCV MCH MCHC RDW Std Deviation RDW Coeff of Sotero Plt Count MPV Immature Gran % (Auto) Neut % (Auto) Lymph % (Auto) [place] % (Auto) Eos % (Auto) Baso % (Auto) Absolute Neuts (auto) Absolute Lymphs (auto) Nucleated RBC % Differential Comment Diff Path Review RBC Morphology PT INR APTT Specimen Type Sample Site VBG pH VBG pO2 VBG O2 Sat (Calc) VBG O2 Content VBG Base Excess POC Mix VBG pCO2 Pt Tmp O2 Delivery Device Blood Gas Notified Whom Blood Gas Notified Time Sodium Potassium Chloride Carbon Dioxide Anion Gap BUN Creatinine Estim Creat Clear Calc Est GFR (MDRD) Af Amer Est GFR (MDRD) Non-Af BUN/Creatinine Ratio Glucose Hemoglobin A1c Lactic Acid 26.3 H* Calcium Phosphorus Magnesium Total Bilirubin Direct Bilirubin AST ALT Alkaline Phosphatase Total Protein Albumin Globulin Lipase Urine Color Urine Clarity Urine pH Ur Specific [place] Urine Protein Urine Glucose (UA) Urine Ketones Urine Occult Blood Urine Nitrite Urine Bilirubin Urine Urobilinogen Ur Leukocyte Esterase Urine RBC Urine WBC Ur Squamous Epith Cells Amorphous Sediment Urine Bacteria Hyaline Casts Coarse Granular Casts Urine Mucus POC Glucose 24 L* 237 H 08/18/19 08/18/19 08/19/19 23:36 23:45 02:44 WBC RBC Hgb Hct MCV MCH MCHC RDW Std Deviation RDW Coeff of Sotero Plt Count MPV Immature Gran % (Auto) Neut % (Auto) Lymph % (Auto) [place] % (Auto) Eos % (Auto) Baso % (Auto) Absolute Neuts (auto) Absolute Lymphs (auto) Nucleated RBC % Differential Comment Diff Path Review RBC Morphology PT INR APTT Specimen Type SCARLET Sample Site OTHER VBG pH 6.88 L* VBG pO2 122 H VBG O2 Sat (Calc) 95 H VBG O2 Content < 5 L VBG Base Excess -30 L POC Mix VBG pCO2 Pt Tmp 19.2 L O2 Delivery Device Room Air Blood Gas Notified Whom ED MD Blood Gas Notified Time 2345 Sodium Potassium Chloride Carbon Dioxide Anion Gap BUN Creatinine Estim Creat Clear Calc Est GFR (MDRD) Af Amer Est GFR (MDRD) Non-Af BUN/Creatinine Ratio Glucose Hemoglobin A1c Lactic Acid Calcium Phosphorus Magnesium Total Bilirubin Direct Bilirubin AST ALT Alkaline Phosphatase Total Protein Albumin Globulin Lipase Urine Color Ashli Urine Clarity Sl. Cloudy Urine pH 5.0 Ur Specific [place] 1.025 Urine Protein 500 H Urine Glucose (UA) Normal Urine Ketones 5 H Urine Occult Blood 25 H Urine Nitrite Positive H Urine Bilirubin 6 H Urine Urobilinogen 1 H Ur Leukocyte Esterase 100 H Urine RBC 0 SEEN Urine WBC 5-10 SEEN Ur Squamous Epith Cells 5-10 SEEN Amorphous Sediment 3+ Urine Bacteria 1+ Hyaline Casts 25-50 SEEN Coarse Granular Casts 0-5 SEEN Urine Mucus 0 SEEN POC Glucose 185 H 08/19/19 08/19/19 08/19/19 02:45 02:45 02:45 WBC RBC Hgb Hct MCV MCH MCHC RDW Std Deviation RDW Coeff of Sotero Plt Count MPV Immature Gran % (Auto) Neut % (Auto) Lymph % (Auto) [place] % (Auto) Eos % (Auto) Baso % (Auto) Absolute Neuts (auto) Absolute Lymphs (auto) Nucleated RBC % Differential Comment Diff Path Review RBC Morphology PT INR APTT Specimen Type Sample Site VBG pH VBG pO2 VBG O2 Sat (Calc) VBG O2 Content VBG Base Excess POC Mix VBG pCO2 Pt Tmp O2 Delivery Device Blood Gas Notified Whom Blood Gas Notified Time Sodium 141 Potassium 4.5 Chloride 92 L Carbon Dioxide 3.0 L* Anion Gap 46 H BUN 79 H Creatinine 10.10 H* Estim Creat Clear Calc 7.16 Est GFR (MDRD) Af Amer 7 L Est GFR (MDRD) Non-Af 6 L BUN/Creatinine Ratio 7.8 L Glucose 178 H Hemoglobin A1c Pending Lactic Acid Calcium 7.6 L Phosphorus 15.6 H* Magnesium 2.4 Total Bilirubin Direct Bilirubin AST ALT Alkaline Phosphatase Total Protein Albumin Globulin Lipase Urine Color Urine Clarity Urine pH Ur Specific [place] Urine Protein Urine Glucose (UA) Urine Ketones Urine Occult Blood Urine Nitrite Urine Bilirubin Urine Urobilinogen Ur Leukocyte Esterase Urine RBC Urine WBC Ur Squamous Epith Cells Amorphous Sediment Urine Bacteria Hyaline Casts Coarse Granular Casts Urine Mucus POC Glucose 08/19/19 08/19/19 02:45 02:45 WBC 31.9 H* RBC 4.16 L Hgb 12.2 L Hct 40.3 MCV 96.9 H MCH 29.3 MCHC 30.3 L RDW Std Deviation 50.2 H RDW Coeff of Sotero 14.1 Plt Count 318 MPV 10.9 Immature Gran % (Auto) 1.600 H Neut % (Auto) 75.8 H Lymph % (Auto) 14.2 L [place] % (Auto) 8.0 Eos % (Auto) 0.1 Baso % (Auto) 0.3 Absolute Neuts (auto) 24.1 H Absolute Lymphs (auto) 4.53 H Nucleated RBC % 0 Differential Comment SCANNED Diff Path Review May foll RBC Morphology PT INR APTT Specimen Type Sample Site VBG pH VBG pO2 VBG O2 Sat (Calc) VBG O2 Content VBG Base Excess POC Mix VBG pCO2 Pt Tmp O2 Delivery Device Blood Gas Notified Whom Blood Gas Notified Time Sodium Potassium Chloride Carbon Dioxide Anion Gap BUN Creatinine Estim Creat Clear Calc Est GFR (MDRD) Af Amer Est GFR (MDRD) Non-Af BUN/Creatinine Ratio Glucose Hemoglobin A1c Lactic Acid 24.2 H* Calcium Phosphorus Magnesium Total Bilirubin Direct Bilirubin AST ALT Alkaline Phosphatase Total Protein Albumin Globulin Lipase Urine Color Urine Clarity Urine pH Ur Specific [place] Urine Protein Urine Glucose (UA) Urine Ketones Urine Occult Blood Urine Nitrite Urine Bilirubin Urine Urobilinogen Ur Leukocyte Esterase Urine RBC Urine WBC Ur Squamous Epith Cells Amorphous Sediment Urine Bacteria Hyaline Casts Coarse Granular Casts Urine Mucus POC Glucose Microbiology 08/18/19 23:30 Mucosa - Nasopharyngeal Influenza Types A,B Direct FA (PAULETTE) - Final Clinical Impression(s) from Imaging Studies Abdomen/Pelvis CT 08/18/19 22:42 IMPRESSION: 1. Slitlike IVC suggests the sequela of hypovolemia and dehydration. 2. Hepatic steatosis. 3. Fluid-filled distended stomach suggests possible sequela of gastroparesis. 4. Nonspecific thickening of the wall of the hepatic flexure of the colon may be the result of previous or chronic infection or inflammation. Electronically Signed: Kanwal Morales MD at 0:44 EST , Service support , Chest X-Ray 08/18/19 22:43 IMPRESSION: No acute process Electronically Signed: Elie Davis MD at 23:52 EST , Service support , KUB X-Ray 08/19/19 00:01 IMPRESSION: NGT in adequate position. at 0203 Reported and signed by: Young Smith MD Electronically Signed: Young Smith MD at 2:02 EST Tel , Service support , Chest X-Ray 08/19/19 04:26 IMPRESSION: Inadequate positioning of the large bore right IJ catheter. It enters into the right IJ, and then traverses laterally into the subclavian and axillary veins. It should be repositioned. Chronic interestitial changes. No radiographic evidence of acute cardiopulmonary disease. at 0558 Reported and signed by: Young Smith MD Electronically Signed: Young Smith MD at 5:57 EST Tel , Service support , ADDENDUM: 08/19/19 0612 IMPRESSION: Inadequate positioning of the large bore right IJ catheter. It enters into the right IJ, and then traverses laterally into the subclavian and axillary veins. It should be repositioned. Chronic interestitial changes. No radiographic evidence of acute cardiopulmonary disease. at 0558 Reported and signed by: Young Smith MD N.B. : The above information has been verbally conveyed by Young Smith MD to Ro Huggins RN, on 08/19/2019 06:05:56 (ET). Electronically Signed: Young Smith MD at 5:57 EST Tel , Service support , Current Medications Enoxaparin Sodium (Lovenox) 30 mg SC DAILY BALTAZAR Glucagon () 1 mg IM .X1 PRN PRN Reason: Hypoglycemia Heparin Sodium (Porcine) () 10,000 units IV PRN PRN Piperacillin Sod/Tazobactam (Sod 3.375 gm/ Sodium Chloride) 50 mls @ 12.5 mls/hr IV Q12 BALTAZAR Dextrose (Dextrose 10%-Water) 250 mls @ 999 mls/hr IV .Q16M PRN; Protocol PRN Reason: HYPOGLYCEMIA Sodium Chloride () 250 mls @ 15 mls/hr IV .[id number] PRN PRN Reason: Saline Flush Sodium Chloride () 250 mls @ 15 mls/hr IV .[id number] PRN PRN Reason: Additional IVPB Infusion Sodium Bicarbonate 150 meq/ (Dextrose) 1,150 mls @ 150 mls/hr IV .Q7H40M BALTAZAR Last Admin: 08/19/19 04:23 Dose: 150 mls/hr Documented by: Norepinephrine Bitartrate 8 mg (/ Sodium Chloride) 250 mls @ 9.375 mls/hr CONT INF .[id number] BALTAZAR; Protocol Last Titration: 08/19/19 06:00 Dose: 5 mcg/min, 9.4 mls/hr Documented by: Melatonin (Melatonin) 3 mg PO QHS PRN PRN PRN Reason: INSOMNIA Morphine Sulfate () 2 mg IV Q3H PRN PRN PRN Reason: Pain Score 6-10/10 Nicotine (Nicoderm Cq (Pbkc)) 14 mg TRANSDERM. DAILY BALTAZAR Last Admin: 08/19/19 05:57 Dose: Not Given Documented by: Ondansetron HCl (Zofran) 4 mg IV Q6H PRN PRN PRN Reason: NAUSEA/VOMITING Prochlorperazine Edisylate (Compazine Iv) 5 mg IV Q4H PRN PRN PRN Reason: Breakthrough Nausea/Vomiting Sodium Chloride () 10 - 40 ml IV UD PRN PRN Reason: SALINE FLUSH Assessment/Plan Active and Suspected Problems (Last Updated 08/19/19 @ 03:[address] Ranjan Rocha MD) Metabolic acidosis (Acute) Gastroparesis (Acute) Lactic acidosis (Acute) UTI (urinary tract infection) (Acute) Acute renal failure (Acute) Septic shock (Acute) Hypoglycemia (Acute) RECOMMENDATIONS: 1. Continue broad-spectrum antimicrobials, pending infectious work-up. 2. Hold home antihypertensives and outpatient diabetic medication regimen. 3. Dialysis support per nephrology recommendations. 4. Obtain MRSA screen and respiratory viral panel. 5. Check blood and urine cultures. 6. Stop Lovenox and transition to subcutaneous heparin for DVT prophylaxis. 7. Continue Levophed and wean to maintain a mean arterial pressure at or above 65 mmHg. 8. Start stress ulcer prophylaxis. IMPRESSIONS: 1. Septic shock Potential urinary source of infection. Plain film chest x-ray did not reveal evidence of a focal infiltrate. Blood cultures are currently pending. We will also obtain respiratory viral panel. The patient will be continued on broad- spectrum antimicrobials, pending infectious work-up. Levophed will be utilized in an attempt to maintain a mean arterial pressure at or above 65 mmHg. 2. Acute kidney injury/profound anion gap metabolic acidosis/hypokal emia/hyperphosphatemia The patient presented to the hospital with profound kidney injury in the setting of intravascular volume depletion. The patient has already been evaluated by nephrology and temporary hemodialysis catheter has been placed. Plan for dialysis this morning. Recommend rechecking chemistry profile status post completion of dialysis. 3. Significant lactic acidosis Likely a combination of both type A and type B lactic acidemia in the setting of septic shock, coupled with the concurrent use of metformin in the setting of decreased renal function. 4. Metabolic encephalopathy Likely secondary to numbers 1 and 2. The patient is improved this morning. Plan to continue current supportive measures as noted above. 5. History of tobacco dependency The patient does have a rather extensive smoking history. For now, the patient can be continued on nicotine replacement therapy. I would recommend outpatient pulmonary follow-up so that baseline PFTs can be obtained. I personally spent 5 minutes discussing the deleterious effects of continued tobacco use with the patient, including modalities which could be utilized to achieve a smoke-free lifestyle. 6. Diabetes mellitus/hypertension/hyperlipidemia Complicates care, management, recovery and prognosis. Hold home antihypertensives. TIME: 45 minutes of critical care time, independent of procedures, was spent addressing the patient's septic shock, acute kidney injury, anion gap metabolic acidosis, lactic acidosis, metabolic encephalopathy, review of all data and collaboration with the care team. ([id number]) Code Visit 9xxxx: [id number] Critical care first hour - Behavior Interventions Behavior Intervention: 65528 Smoking Cessation 3-10 min
[2019-08-19 06:58] LABS: Urine Sodium 102 mmol/L (Not Establ.)
[2019-08-19 07:01] LABS: Bedside Glucose 241 mg/dL (70-110)
--- NOTE | 2019-08-19 07:25 | PN_ITS ---
Patient Problems: Active and Suspected Problems (Last Updated 08/19/19 @ 03:[address] Ranjan Rocha MD) Metabolic acidosis (Acute) Gastroparesis (Acute) Lactic acidosis (Acute) UTI (urinary tract infection) (Acute) Acute renal failure (Acute) Septic shock (Acute) Hypoglycemia (Acute) Reason for Visit: Follow-up on septic shock Subjective: Patient was seen and examined. He had emergent dialysis catheter placed. He subsequently had dialysis done. He denied any new complaints. He admits to feeling better. Objective: Physical exam: Vitals/I&O's: Vital Signs Temp Pulse Resp BP Pulse Ox 97.0 F L 135 H 20 H 97/58 L 100 08/19/19 04:00 08/19/19 07:15 08/19/19 07:15 08/19/19 07:15 08/19/19 07:15 Oxygen Delivery Method Room Air Weight: 73.4 kg Body Mass Index (BMI) 27.8 Finger Stick Blood Glucose 287 Intake and Output for Last 24 Hours 08/17/19 08/18/19 08/19/19 23:59 23:59 23:59 Intake Total 3518.60 / 3518.60 Output Total 1500 / 1500 Balance 2018.60 / 2018.60 General: Alert, Oriented x3, Cooperative, No apparent distress HEENT: Atraumatic, PERRLA, EOMI, Normocephalic Oral: Dry Mucosa Neck: Supple Lungs: Normal air movement, Diminished, - - Right-sided temporal dialysis catheter Cardiovascular: Regular rate, Regular Rhythm, Normal S1, Normal S2, No murmurs Abdomen: Bowel Sounds Present, Soft, Non Tender, Non-Distended, No Hepato- splenomegaly Extremities: No edema Skin: No rashes, No breakdown Musculoskeletal: No Tenderness to Palpation of Joints or Extremities Lymphatic: No Cervical, Supraclavicular, or Inguinal Adenopathy Neurological: Cranial nerves II-XII grossly intact, Neuro grossly intact Psych/Mental Status: Normal Affect, Appropriate Microbiology Past 72 Hours 08/18/19 23:30 Mucosa - Nasopharyngeal Influenza Types A,B Direct FA ([facility]) - Final Laboratory Results 08/18/19 22:39: WBC 28.6 H, RBC 5.26, Hgb 15.3, Hct 50.1, MCV 95.2 H, MCH 29.1, MCHC 30.5 L, RDW Std Deviation 48.6 H, RDW Coeff of Sotero 13.8, Plt Count 389, MPV 10.7, Immature Gran % (Auto) 1.600 H, Neut % (Auto) 73.2 H, Lymph % (Auto) 20.6, Randall % (Auto) 3.9, Eos % (Auto) 0.2, Baso % (Auto) 0.5, Absolute Neuts (auto) 20.9 H, Absolute Lymphs (auto) 5.88 H, Nucleated RBC % 0, Differential Comment SCANNED, RBC Morphology NORM C+C 08/18/19 22:39: PT 15.2 H, INR 1.2, APTT 33.4 08/18/19 22:39: Sodium 139, Potassium 3.1 L, Chloride 85 L, Carbon Dioxide 7.0 L*, Anion Gap 47 H, BUN 86 H, Creatinine 11.30 H*, Estim Creat Clear Calc 7.15, Est GFR (MDRD) Af Amer 6 L, Est GFR (MDRD) Non-Af 5 L, BUN/Creatinine Ratio 7.6 L, Glucose 27 L*, Calcium 9.8, Total Bilirubin 0.40, Direct Bilirubin 0.20, AST 25, ALT 51, Alkaline Phosphatase 116, Total Protein 8.8 H, Albumin 4.3, Globulin 4.5 H, Lipase 229 08/18/19 22:39: Lactic Acid 26.3 H* 08/18/19 22:44: POC Glucose 24 L* 08/18/19 23:17: POC Glucose 237 H 08/18/19 23:36: Urine Color Ashli, Urine Clarity Sl. Cloudy, Urine pH 5.0, Ur Specific [place] 1.025, Urine Protein 500 H, Urine Glucose (UA) Normal, Urine Ketones 5 H, Urine Occult Blood 25 H, Urine Nitrite Positive H, Urine Bilirubin 6 H, Urine Urobilinogen 1 H, Ur Leukocyte Esterase 100 H, Urine RBC 0 SEEN, Urine WBC 5-10 SEEN, Ur Squamous Epith Cells 5-10 SEEN, Amorphous Sediment 3+, Urine Bacteria 1+, Hyaline Casts 25-50 SEEN, Coarse Granular Casts 0-5 SEEN, Urine Mucus 0 SEEN 08/18/19 23:45: Specimen Type SCARLET, Sample Site OTHER, VBG pH 6.88 L*, VBG pO2 122 H, VBG O2 Sat (Calc) 95 H, VBG O2 Content < 5 L, VBG Base Excess -30 L, POC Mix VBG pCO2 Pt Tmp 19.2 L, O2 Delivery Device Room Air, Blood Gas Notified Whom ED , Blood Gas Notified Time 1505 08/19/19 02:44: POC Glucose 185 H 08/19/19 02:45: Sodium 141, Potassium 4.5, Chloride 92 L, Carbon Dioxide 3.0 L*, Anion Gap 46 H, BUN 79 H, Creatinine 10.10 H*, Estim Creat Clear Calc 7.16, Est GFR (MDRD) Af Amer 7 L, Est GFR (MDRD) Non-Af 6 L, BUN/Creatinine Ratio 7.8 L, Glucose 178 H, Calcium 7.6 L, Phosphorus 15.6 H* 08/19/19 02:45: Magnesium 2.4 08/19/19 02:45: Hemoglobin A1c Pending 08/19/19 02:45: WBC 31.9 H*, RBC 4.16 L, Hgb 12.2 L, Hct 40.3, MCV 96.9 H, MCH 29.3, MCHC 30.3 L, RDW Std Deviation 50.2 H, RDW Coeff of Sotero 14.1, Plt Count 318, MPV 10.9, Immature Gran % (Auto) 1.600 H, Neut % (Auto) 75.8 H, Lymph % (Auto) 14.2 L, Randall % (Auto) 8.0, Eos % (Auto) 0.1, Baso % (Auto) 0.3, Absolute Neuts (auto) 24.1 H, Absolute Lymphs (auto) 4.53 H, Nucleated RBC % 0, Differential Comment SCANNED, Diff Path Review May foll 08/19/19 02:45: Lactic Acid 24.2 H* 08/19/19 06:30: Urine Creatinine 75.30 08/19/19 06:30: Ur Random Sodium 102 08/19/19 06:48: Hep B Core Total Ab Pending 08/19/19 06:48: Hep Bs Antigen Pending 08/19/19 06:50: MRSA (PCR) Pending 08/19/19 06:54: POC Glucose 241 H Current Medications Enoxaparin Sodium (Lovenox) 30 mg SC DAILY [facility] Glucagon () 1 mg IM .X1 PRN PRN Reason: Hypoglycemia Heparin Sodium (Porcine) () 10,000 units IV PRN PRN Piperacillin Sod/Tazobactam (Sod 3.375 gm/ Sodium Chloride) 50 mls @ 12.5 mls/hr IV Q12 [facility] Dextrose (Dextrose 10%-Water) 250 mls @ 999 mls/hr IV .Q16M PRN; Protocol PRN Reason: HYPOGLYCEMIA Sodium Chloride () 250 mls @ 15 mls/hr IV .[id number] PRN PRN Reason: Saline Flush Sodium Chloride () 250 mls @ 15 mls/hr IV .[id number] PRN PRN Reason: Additional IVPB Infusion Sodium Bicarbonate 150 meq/ (Dextrose) 1,150 mls @ 150 mls/hr IV .Q7H40M [facility] Last Admin: 08/19/19 04:23 Dose: 150 mls/hr Documented by: Norepinephrine Bitartrate 8 mg (/ Sodium Chloride) 250 mls @ 9.375 mls/hr CONT INF .[id number] [facility]; Protocol Last Titration: 08/19/19 07:15 Dose: 10 mcg/min, 18.8 mls/hr Documented by: Pantoprazole Sodium 40 mg/ (Sodium Chloride) 110 mls @ 330 mls/hr IV Q12 [facility] Nicotine (Nicoderm Cq (Pbkc)) 14 mg TRANSDERM. DAILY [facility] Last Admin: 08/19/19 05:57 Dose: Not Given Documented by: Ondansetron HCl (Zofran) 4 mg IV Q6H PRN PRN PRN Reason: NAUSEA/VOMITING Prochlorperazine Edisylate (Compazine Iv) 5 mg IV Q4H PRN PRN PRN Reason: Breakthrough Nausea/Vomiting Sodium Chloride () 10 - 40 ml IV UD PRN PRN Reason: SALINE FLUSH STROKE Vital Signs/Narrative: Vital Signs Temp Pulse Resp BP BP Pulse Ox 08/19/19 07:15 135 H 20 H 97/58 L 100 08/19/19 07:00 133 H 19 H 100/61 100 08/19/19 06:45 133 H 24 H 91/56 L 100 08/19/19 06:30 127 H 23 H 82/54 L 100 08/19/19 06:15 122 H 28 H 88/56 L 100 08/19/19 06:00 121 H 24 H 105/58 L 100 08/19/19 05:56 117 H 31 H 84/51 L 100 08/19/19 05:45 111 H 31 H 68/57 L 100 08/19/19 05:30 114 H 29 H 78/52 L 100 08/19/19 05:15 114 H 37 H 82/45 L 100 08/19/19 05:00 114 H 27 H 89/51 L 100 08/19/19 04:45 114 H 37 H 86/54 L 100 08/19/19 04:30 110 H 37 H 81/53 L 100 08/19/19 04:15 111 H 44 H 95/58 L 100 08/19/19 04:00 97.0 F L 113 H 37 H 93/58 L 100 08/19/19 03:30 113 H 29 H 86/57 L 100 Medical Necessity - Tobacco Use Smoking Status: Current every day smoker Tobacco Use: Cigarettes Assessment/Plan All Active Problems (Last Updated 08/19/19 @ 03:[address] Ranjan Rocha MD) Metabolic acidosis (Acute) Gastroparesis (Acute) Lactic acidosis (Acute) UTI (urinary tract infection) (Acute) Acute renal failure (Acute) Septic shock (Acute) Hypoglycemia (Acute) 54-year-old male with past medical history of mental retardation, ADHD/anxiety, hypertension, type II DM, on metformin who comes in with gastroenteritis and found to be septic shock with acute kidney injury. 1. Septic shock, unclear etiology, blood cultures are pending, Admitting chest x-ray, CT of the abdomen and pelvis are unremarkable for acute focus of infection. On IV Zosyn, will continue same 2. Acute kidney injury likely secondary to dehydration from gastroenteritis on top of home blood pressure medication admitting creatinine of 11.30, no previous creatinine, status post emergent dialysis Will trend renal function 3. Hypokalemia, replace, recheck in a.m. 4. Acute metabolic acidosis secondary to #2, improved after dialysis, will trend labs in am 5. Acute lactic acidosis, admitting lactic acid was 26.3, secondary to probable #1 and metformin use and dehydration Repeat lactic acid is 3.4 6. Type 2 DM, complicated by gastroparesis, was on metformin, Metformin held, continue on blood glucose checks with insulin sliding scale 7. DVT PPx- Heparin SC 8. GI ppx- PPI Code Visit Inpatient E&M: 04654 Subs Hosp L3
[2019-08-19 07:45] LABS: Hemoglobin A1c 6.6 % (4.2-6.3)
[2019-08-19 08:41] LABS: M R Staph aureus DNA By PCR Negative (Negative); Probe Check PASS; Specimen Processing Control PASS
--- NOTE | 2019-08-19 11:29 | DIALYSIS ---
HD x 4.5 hrs on 3k bath -Ran pt even -HR in 130's -BP 80-100's on levo no meds given.- clotted venous line off new set up- Hepatitis labs report to Sreekanth EWING- Hep labs drawn
[2019-08-19] MEDS: CHLORHEXIDINE GLUC 2% CLOTH 1 EACH TOWELETTE TOPICAL (11:52)
[2019-08-19 13:31] LABS: Anion Gap 14 (5-15); BUN 26 mg/dL (7-18); BUN/Creat Ratio 6.5 RATIO (10-20); Calcium,Total 7.6 mg/dL (8.5-10.1); Chloride 98 mmol/L (98-107); Creatinine, Serum 4.02 mg/dL (0.70-1.30); EST Glomerular Filtration Rate 17 mL/min (>60); Est Glom Filt Rate - Afr Amer 20 mL/min (>60); Glucose 67 mg/dL (74-106); Potassium 3.4 mmol/L (3.5-5.1); Sodium Level 138 mmol/L (136-145)
[2019-08-19 13:34] LABS: Lactic Acid 3.4 mmol/L (0.4-1.9)
[2019-08-19] MEDS: Dextrose 10%-Water 250 ML 999 ML IV (14:29)
--- NOTE | 2019-08-19 16:05 | PCM.CONS.R ---
Consultation - Renal 08/19/19 PCP/ Referring MD: Requesting physician: [] Primary care physician: Alexa Cramer Reason for Consultation:: nasrin - History of Present Illness History of Present Illness: The patient is a 54 year old M past medical history of mental retardation ADHD who presented with a chief complaint of 3 days of nausea vomiting diarrhea and decreased urine output. He had diarrhea only 1 day prior to admission but that he had nausea and vomiting. He was found to have leukocytosis with 20,000 and bandemia and the venous blood gases showed a pH of 6.88 bicarb was 7 so the decision was made last night to start dialysis which he tolerated well. He was on Levophed initially 50 mcg and now only on 5 mcg. Initially she was not he was anuric but in the last to 3 hours he started making urine about 2 300 mL in the last 2 3 hours. He denies chest pain shortness of breath is more awake now. Apparently he [facility] for a sore throat [facility] and was found to have enlarged tonsils was given swish and swallow medication of lidocaine Benadryl and antiacids. He denies chest pain shortness of breath headache currently. - Allergies Allergies: Allergies No Known Allergies Allergy (Verified 08/18/19 21:50) - Current Medications Current Medications: Current Medications Chlorhexidine Gluconate () 1 each TOPICAL DAILY [facility] Last Admin: 08/19/19 11:52 Dose: 1 each Documented by: Enoxaparin Sodium (Lovenox) 30 mg SC DAILY [facility] Last Admin: 08/19/19 13:30 Dose: Not Given Documented by: Glucagon () 1 mg IM .X1 PRN PRN Reason: Hypoglycemia Heparin Sodium (Porcine) () 10,000 units IV PRN PRN Piperacillin Sod/Tazobactam (Sod 3.375 gm/ Sodium Chloride) 50 mls @ 12.5 mls/hr IV Q12 [facility] Last Admin: 08/19/19 12:04 Dose: 12.5 mls/hr Documented by: Dextrose (Dextrose 10%-Water) 250 mls @ 999 mls/hr IV .Q16M PRN; Protocol PRN Reason: HYPOGLYCEMIA Last Infusion: 08/19/19 14:52 Dose: Infused Documented by: Sodium Chloride () 250 mls @ 15 mls/hr IV .[id number] PRN PRN Reason: Saline Flush Sodium Chloride () 250 mls @ 15 mls/hr IV .[id number] PRN PRN Reason: Additional IVPB Infusion Sodium Bicarbonate 150 meq/ (Dextrose) 1,150 mls @ 150 mls/hr IV .Q7H40M [facility] Last Admin: 08/19/19 12:04 Dose: 150 mls/hr Documented by: Norepinephrine Bitartrate 8 mg (/ Sodium Chloride) 250 mls @ 9.375 mls/hr CONT INF .[id number] [facility]; Protocol Last Titration: 08/19/19 15:00 Dose: 5 mcg/min, 9.4 mls/hr Documented by: Pantoprazole Sodium 40 mg/ (Sodium Chloride) 110 mls @ 330 mls/hr IV Q12 [facility] Last Infusion: 08/19/19 12:10 Dose: Infused Documented by: Nicotine (Nicoderm Cq (Pbkc)) 14 mg TRANSDERM. DAILY [facility] Last Admin: 08/19/19 05:57 Dose: Not Given Documented by: Ondansetron HCl (Zofran) 4 mg IV Q6H PRN PRN PRN Reason: NAUSEA/VOMITING Prochlorperazine Edisylate (Compazine Iv) 5 mg IV Q4H PRN PRN PRN Reason: Breakthrough Nausea/Vomiting Sodium Chloride () 10 - 40 ml IV UD PRN PRN Reason: SALINE FLUSH - Past Surgical History Surgical History: - - Tube in tympanic membrane - Social History Smoking Status: Current every day smoker Alcohol: None - Family History Maternal History Items: Diabetes, Hypertension, - - Anxiety Paternal History Items: Seizures Review of Systems Eyes: Reports: - - Per HPI otherwise negative Patient Problems: Active and Suspected Problems (Last Updated 08/19/19 @ 03:[address] Ranjan Rocha MD) Metabolic acidosis (Acute) Gastroparesis (Acute) Lactic acidosis (Acute) UTI (urinary tract infection) (Acute) Acute renal failure (Acute) Septic shock (Acute) Hypoglycemia (Acute) - Physical Exam Vitals/I&O's: Vital Signs Temp Pulse Resp BP Pulse Ox 97.9 F 120 H 18 93/55 L 96 08/19/19 12:00 08/19/19 15:00 08/19/19 15:00 08/19/19 15:00 08/19/19 15:00 Oxygen Delivery Method Room Air Weight: 73.4 kg Body Mass Index (BMI) 27.8 Finger Stick Blood Glucose 287 Intake and Output for Last 24 Hours 08/17/19 08/18/19 08/19/19 23:59 23:59 23:59 Intake Total 5134.90 / 5134.90 Output Total 1575 / 1575 Balance 3559.90 / 3559.90 General: Alert, Oriented x3, Cooperative HEENT: Atraumatic, EOMI Neck: Supple Lungs: Clear to auscultation, Normal air movement Cardiovascular: Regular rate, Regular Rhythm, Normal S1, Normal S2 Abdomen: Bowel Sounds Present, Obese Microbiology Past 72 Hours 08/19/19 07:20 Mucosa - Nasopharyngeal Respiratory Panel (PCR) - Final 08/18/19 23:30 Mucosa - Nasopharyngeal Influenza Types A,B Direct FA ([facility]) - Final Laboratory Results 08/18/19 22:39: WBC 28.6 H, RBC 5.26, Hgb 15.3, Hct 50.1, MCV 95.2 H, MCH 29.1, MCHC 30.5 L, RDW Std Deviation 48.6 H, RDW Coeff of Sotero 13.8, Plt Count 389, MPV 10.7, Immature Gran % (Auto) 1.600 H, Neut % (Auto) 73.2 H, Lymph % (Auto) 20.6, [place] % (Auto) 3.9, Eos % (Auto) 0.2, Baso % (Auto) 0.5, Absolute Neuts (auto) 20.9 H, Absolute Lymphs (auto) 5.88 H, Nucleated RBC % 0, Differential Comment SCANNED, RBC Morphology NORM C+C 08/18/19 22:39: PT 15.2 H, INR 1.2, APTT 33.4 08/18/19 22:39: Sodium 139, Potassium 3.1 L, Chloride 85 L, Carbon Dioxide 7.0 L*, Anion Gap 47 H, BUN 86 H, Creatinine 11.30 H*, Estim Creat Clear Calc 7.15, Est GFR (MDRD) Af Amer 6 L, Est GFR (MDRD) Non-Af 5 L, BUN/Creatinine Ratio 7.6 L, Glucose 27 L*, Calcium 9.8, Total Bilirubin 0.40, Direct Bilirubin 0.20, AST 25, ALT 51, Alkaline Phosphatase 116, Total Protein 8.8 H, Albumin 4.3, Globulin 4.5 H, Lipase 229 08/18/19 22:39: Lactic Acid 26.3 H* 08/18/19 22:44: POC Glucose 24 L* 08/18/19 23:17: POC Glucose 237 H 08/18/19 23:36: Urine Color Ashli, Urine Clarity Sl. Cloudy, Urine pH 5.0, Ur Specific [place] 1.025, Urine Protein 500 H, Urine Glucose (UA) Normal, Urine Ketones 5 H, Urine Occult Blood 25 H, Urine Nitrite Positive H, Urine Bilirubin 6 H, Urine Urobilinogen 1 H, Ur Leukocyte Esterase 100 H, Urine RBC 0 SEEN, Urine WBC 5-10 SEEN, Ur Squamous Epith Cells 5-10 SEEN, Amorphous Sediment 3+, Urine Bacteria 1+, Hyaline Casts 25-50 SEEN, Coarse Granular Casts 0-5 SEEN, Urine Mucus 0 SEEN 08/18/19 23:45: Specimen Type SCARLET, Sample Site OTHER, VBG pH 6.88 L*, VBG pO2 122 H, VBG O2 Sat (Calc) 95 H, VBG O2 Content < 5 L, VBG Base Excess -30 L, POC Mix VBG pCO2 Pt Tmp 19.2 L, O2 Delivery Device Room Air, Blood Gas Notified Whom ED , Blood Gas Notified Time 8808 08/19/19 02:44: POC Glucose 185 H 08/19/19 02:45: Sodium 141, Potassium 4.5, Chloride 92 L, Carbon Dioxide 3.0 L*, Anion Gap 46 H, BUN 79 H, Creatinine 10.10 H*, Estim Creat Clear Calc 7.16, Est GFR (MDRD) Af Amer 7 L, Est GFR (MDRD) Non-Af 6 L, BUN/Creatinine Ratio 7.8 L, Glucose 178 H, Calcium 7.6 L, Phosphorus 15.6 H* 08/19/19 02:45: Magnesium 2.4 08/19/19 02:45: Hemoglobin A1c 6.6 H 08/19/19 02:45: WBC 31.9 H*, RBC 4.16 L, Hgb 12.2 L, Hct 40.3, MCV 96.9 H, MCH 29.3, MCHC 30.3 L, RDW Std Deviation 50.2 H, RDW Coeff of Sotero 14.1, Plt Count 318, MPV 10.9, Immature Gran % (Auto) 1.600 H, Neut % (Auto) 75.8 H, Lymph % (Auto) 14.2 L, [place] % (Auto) 8.0, Eos % (Auto) 0.1, Baso % (Auto) 0.3, Absolute Neuts (auto) 24.1 H, Absolute Lymphs (auto) 4.53 H, Nucleated RBC % 0, Differential Comment SCANNED, Diff Path Review May foll 08/19/19 02:45: Lactic Acid 24.2 H* 08/19/19 06:30: Urine Creatinine 75.30 08/19/19 06:30: Ur Random Sodium 102 08/19/19 06:48: Hep B Core Total Ab Pending 08/19/19 06:48: Hep Bs Antigen Pending 08/19/19 06:50: MRSA (PCR) Negative 08/19/19 06:54: POC Glucose 241 H 08/19/19 07:30: Troponin I 0.301 H 08/19/19 13:00: Sodium 138, Potassium 3.4 L, Chloride 98, Carbon Dioxide 26.0, Anion Gap 14, BUN 26 H, Creatinine 4.02 H, Estim Creat Clear Calc 18.00, Est GFR (MDRD) Af Amer 20 L, Est GFR (MDRD) Non-Af 17 L, BUN/Creatinine Ratio 6.5 L, Glucose 67 L, Calcium 7.6 L 08/19/19 13:00: Lactic Acid 3.4 H* Current Medications Chlorhexidine Gluconate () 1 each TOPICAL DAILY [facility] Last Admin: 08/19/19 11:52 Dose: 1 each Documented by: Enoxaparin Sodium (Lovenox) 30 mg SC DAILY [facility] Last Admin: 08/19/19 13:30 Dose: Not Given Documented by: Glucagon () 1 mg IM .X1 PRN PRN Reason: Hypoglycemia Heparin Sodium (Porcine) () 10,000 units IV PRN PRN Piperacillin Sod/Tazobactam (Sod 3.375 gm/ Sodium Chloride) 50 mls @ 12.5 mls/hr IV Q12 [facility] Last Admin: 08/19/19 12:04 Dose: 12.5 mls/hr Documented by: Dextrose (Dextrose 10%-Water) 250 mls @ 999 mls/hr IV .Q16M PRN; Protocol PRN Reason: HYPOGLYCEMIA Last Infusion: 08/19/19 14:52 Dose: Infused Documented by: Sodium Chloride () 250 mls @ 15 mls/hr IV .[id number] PRN PRN Reason: Saline Flush Sodium Chloride () 250 mls @ 15 mls/hr IV .[id number] PRN PRN Reason: Additional IVPB Infusion Sodium Bicarbonate 150 meq/ (Dextrose) 1,150 mls @ 150 mls/hr IV .Q7H40M [facility] Last Admin: 08/19/19 12:04 Dose: 150 mls/hr Documented by: Norepinephrine Bitartrate 8 mg (/ Sodium Chloride) 250 mls @ 9.375 mls/hr CONT INF .[id number] [facility]; Protocol Last Titration: 08/19/19 15:00 Dose: 5 mcg/min, 9.4 mls/hr Documented by: Pantoprazole Sodium 40 mg/ (Sodium Chloride) 110 mls @ 330 mls/hr IV Q12 [facility] Last Infusion: 08/19/19 12:10 Dose: Infused Documented by: Nicotine (Nicoderm Cq (Pbkc)) 14 mg TRANSDERM. DAILY [facility] Last Admin: 08/19/19 05:57 Dose: Not Given Documented by: Ondansetron HCl (Zofran) 4 mg IV Q6H PRN PRN PRN Reason: NAUSEA/VOMITING Prochlorperazine Edisylate (Compazine Iv) 5 mg IV Q4H PRN PRN PRN Reason: Breakthrough Nausea/Vomiting Sodium Chloride () 10 - 40 ml IV UD PRN PRN Reason: SALINE FLUSH Assessment/Plan All Active Problems (Last Updated 08/19/19 @ 03:[address] Ranjan Rocha MD) Metabolic acidosis (Acute) Gastroparesis (Acute) Lactic acidosis (Acute) UTI (urinary tract infection) (Acute) Acute renal failure (Acute) Septic shock (Acute) Hypoglycemia (Acute) NASRIN likely ATN with septic shock Metabolic acidosis with lactic acidosis Hyperphosphatemia Shock likely septic Patient tolerated well dialysis after placement of a femoral dialysis catheter last night. Will reevaluate dialysis needs tomorrow am. he started to make urine in the last to 3 hours Continue IV fluids keep mean arterial pressure more than 65 on Levophed 5 mcg currently check renal US bmp phos in am Avoid nephrotoxins The above assessment and plan was discussed at length with the patient voiced understanding and agrees to proceed with the plan as outlined above. He was given the opportunity to ask questions and stated that those were answered to his satisfaction. Thank you very much for allowing me to participate in the care of this patient. Please do not hesitate to call if you have any questions or concerns.
[2019-08-19 17:03] LABS: Reflex Lactate? Y
[2019-08-20] VITALS (28 sets, daily range): BP systolic 95–129; BP diastolic 60–85; PULSE 66–113; RESP 8–22; TEMP 36.7–37.6; O2SAT 95–99
[2019-08-20 03:37] LABS: Absolute Lymphocyte Count 2.43 X10^3/uL (0.83-4.51); Absolute Neutrophil Count 11.3 X10^3/uL (2.0-7.7); Basophil# 0.03 X10^3/uL; Basophil% 0.2 % (0-1); Eosinophil# 0.01 X10^3/uL; Eosinophils% 0.1 % (0-5); Hematocrit 31.3 % (40-54); Hemoglobin 10.7 g/dL (13.0-16.5); Lymphocyte # 2.43 X10^3/ul (4.0); Lymphocyte % 15.8 % (19-41); Mean Corp Hgb Conc 34.2 g/dL (32-36); Mean Corpuscular Hgb 29.1 pg (27.0-32.0); Mean Corpuscular Volume 85.1 fL (80-94); Mean Platelet Vol. 10.4 fl (6.2-12.0); Monocyte# 1.55 X10^3/uL; Monocyte% 10.1 % (0-10); NRBC Flagged by Analyzer 0 % (0-5); Neutrophil # 11.27 X10^3/uL (2.7-7.7); Neutrophil % 73.5 % (47-70); POSITIVE DIFFERENTIAL YES; Platelet Count 165 K/mm3 (150-450); RBC Distribution Width CV 13.7 % (11.6-14.6); RBC Distribution Width SD 42.7 fl (35.1-43.9); Red Blood Count 3.68 M/mm3 (4.6-6.2); White Blood Count 15.3 K/mm3 (4.4-11.0)
[2019-08-20 04:28] LABS: Albumin, Serum 2.8 g/dL (3.2-5.0); BUN 38 mg/dL (7-18); BUN/Creat Ratio 6.5 RATIO (10-20); Calcium,Total 6.9 mg/dL (8.5-10.1); Chloride 89 mmol/L (98-107); Creatinine, Serum 5.83 mg/dL (0.70-1.30); EST Glomerular Filtration Rate 11 mL/min (>60); Est Glom Filt Rate - Afr Amer 13 mL/min (>60); Estimated Creatinine Clearance 12.41 ml/min; Glucose 140 mg/dL (74-106); Lactic Acid 2.8 mmol/L (0.4-1.9); Phosphorus 1.4 mg/dL (2.5-4.9); Potassium 3.1 mmol/L (3.5-5.1); Sodium Level 134 mmol/L (136-145)
[2019-08-20 04:29] LABS: Differential Indicated SCAN CRITERIA MET
[2019-08-20 06:09] LABS: Differential Comment SCANNED
--- NOTE | 2019-08-20 06:39 | PN_ITS ---
Subjective: The patient was seen and examined at the bedside this morning. Events from the last 24 hours have been reviewed. The patient is currently afebrile. His Levophed was able to be weaned off yesterday evening. The patient's blood pressures this morning are low/normal. His metabolic derangements have improved in the setting of dialysis yesterday. Although the patient passed his bedside swallow evaluation, family members yesterday endorsed that the patient has been experiencing issues with swallowing. Therefore, prior to advancing his diet , a speech therapy evaluation has been requested. Objective: The patient's most recent lab work, culture data and imaging studies have all been personally reviewed. Blood and urine cultures are still pending. Respiratory viral panel was negative. General: Alert, Cooperative, No apparent distress HEENT: Atraumatic, PERRLA, Normocephalic Oral: Dry Mucosa Neck: Supple, No Nodes, Trachea Midline Lungs: No rhonchi, No wheeze, No rales, Diminished Cardiovascular: Normal S1, Normal S2, No murmurs, Tachycardic Abdomen: Bowel Sounds Present, Soft, Non Tender Extremities: No clubbing, No cyanosis, No edema, - - Right femoral temporary HD line remains in place Musculoskeletal: No Tenderness to Palpation of Joints or Extremities Lymphatic: No Cervical, Supraclavicular, or Inguinal Adenopathy Neurological: Neuro grossly intact Psych/Mental Status: Normal Affect, Appropriate Vital Signs Temp Pulse Resp BP Pulse Ox 99.7 F H 103 H 13 95/71 96 08/20/19 04:00 08/20/19 06:00 08/20/19 06:00 08/20/19 06:00 08/20/19 06:00 Oxygen Delivery Method Room Air Weight: 163 lb 2.273 oz Body Mass Index (BMI) 27.8 Finger Stick Blood Glucose 287 Intake and Output for Last 24 Hours 08/18/19 08/19/19 08/20/19 23:59 23:59 23:59 Intake Total 6543.10 / 6543.10 1200 / 1200 Output Total 2175 / 2175 400 / 400 Balance 4368.10 / 4368.10 800 / 800 Labs (Last 48 Hours) 08/18/19 08/18/19 08/18/19 22:39 22:39 22:39 WBC 28.6 H RBC 5.26 Hgb 15.3 Hct 50.1 MCV 95.2 H MCH 29.1 MCHC 30.5 L RDW Std Deviation 48.6 H RDW Coeff of Sotero 13.8 Plt Count 389 MPV 10.7 Immature Gran % (Auto) 1.600 H Neut % (Auto) 73.2 H Lymph % (Auto) 20.6 [place] % (Auto) 3.9 Eos % (Auto) 0.2 Baso % (Auto) 0.5 Absolute Neuts (auto) 20.9 H Absolute Lymphs (auto) 5.88 H Nucleated RBC % 0 Differential Comment SCANNED Diff Path Review RBC Morphology NORM C+C PT 15.2 H INR 1.2 APTT 33.4 Specimen Type Sample Site VBG pH VBG pO2 VBG O2 Sat (Calc) VBG O2 Content VBG Base Excess POC Mix VBG pCO2 Pt Tmp O2 Delivery Device Blood Gas Notified Whom Blood Gas Notified Time Sodium 139 Potassium 3.1 L Chloride 85 L Carbon Dioxide 7.0 L* Anion Gap 47 H BUN 86 H Creatinine 11.30 H* Estim Creat Clear Calc 7.15 Est GFR (MDRD) Af Amer 6 L Est GFR (MDRD) Non-Af 5 L BUN/Creatinine Ratio 7.6 L Glucose 27 L* Hemoglobin A1c Lactic Acid Calcium 9.8 Phosphorus Magnesium Total Bilirubin 0.40 Direct Bilirubin 0.20 AST 25 ALT 51 Alkaline Phosphatase 116 Troponin I Total Protein 8.8 H Albumin 4.3 Globulin 4.5 H Lipase 229 Urine Color Urine Clarity Urine pH Ur Specific [place] Urine Protein Urine Glucose (UA) Urine Ketones Urine Occult Blood Urine Nitrite Urine Bilirubin Urine Urobilinogen Ur Leukocyte Esterase Urine RBC Urine WBC Ur Squamous Epith Cells Amorphous Sediment Urine Bacteria Hyaline Casts Coarse Granular Casts Urine Mucus Ur Random Sodium Urine Creatinine Hep Bs Antigen Hep B Core Total Ab MRSA (PCR) POC Glucose 08/18/19 08/18/19 08/18/19 22:39 22:44 23:17 WBC RBC Hgb Hct MCV MCH MCHC RDW Std Deviation RDW Coeff of Sotero Plt Count MPV Immature Gran % (Auto) Neut % (Auto) Lymph % (Auto) [place] % (Auto) Eos % (Auto) Baso % (Auto) Absolute Neuts (auto) Absolute Lymphs (auto) Nucleated RBC % Differential Comment Diff Path Review RBC Morphology PT INR APTT Specimen Type Sample Site VBG pH VBG pO2 VBG O2 Sat (Calc) VBG O2 Content VBG Base Excess POC Mix VBG pCO2 Pt Tmp O2 Delivery Device Blood Gas Notified Whom Blood Gas Notified Time Sodium Potassium Chloride Carbon Dioxide Anion Gap BUN Creatinine Estim Creat Clear Calc Est GFR (MDRD) Af Amer Est GFR (MDRD) Non-Af BUN/Creatinine Ratio Glucose Hemoglobin A1c Lactic Acid 26.3 H* Calcium Phosphorus Magnesium Total Bilirubin Direct Bilirubin AST ALT Alkaline Phosphatase Troponin I Total Protein Albumin Globulin Lipase Urine Color Urine Clarity Urine pH Ur Specific [place] Urine Protein Urine Glucose (UA) Urine Ketones Urine Occult Blood Urine Nitrite Urine Bilirubin Urine Urobilinogen Ur Leukocyte Esterase Urine RBC Urine WBC Ur Squamous Epith Cells Amorphous Sediment Urine Bacteria Hyaline Casts Coarse Granular Casts Urine Mucus Ur Random Sodium Urine Creatinine Hep Bs Antigen Hep B Core Total Ab MRSA (PCR) POC Glucose 24 L* 237 H 08/18/19 08/18/19 08/19/19 23:36 23:45 02:44 WBC RBC Hgb Hct MCV MCH MCHC RDW Std Deviation RDW Coeff of Sotero Plt Count MPV Immature Gran % (Auto) Neut % (Auto) Lymph % (Auto) [place] % (Auto) Eos % (Auto) Baso % (Auto) Absolute Neuts (auto) Absolute Lymphs (auto) Nucleated RBC % Differential Comment Diff Path Review RBC Morphology PT INR APTT Specimen Type SCARLET Sample Site OTHER VBG pH 6.88 L* VBG pO2 122 H VBG O2 Sat (Calc) 95 H VBG O2 Content < 5 L VBG Base Excess -30 L POC Mix VBG pCO2 Pt Tmp 19.2 L O2 Delivery Device Room Air Blood Gas Notified Whom ED Blood Gas Notified Time 2345 Sodium Potassium Chloride Carbon Dioxide Anion Gap BUN Creatinine Estim Creat Clear Calc Est GFR (MDRD) Af Amer Est GFR (MDRD) Non-Af BUN/Creatinine Ratio Glucose Hemoglobin A1c Lactic Acid Calcium Phosphorus Magnesium Total Bilirubin Direct Bilirubin AST ALT Alkaline Phosphatase Troponin I Total Protein Albumin Globulin Lipase Urine Color Ashli Urine Clarity Sl. Cloudy Urine pH 5.0 Ur Specific [place] 1.025 Urine Protein 500 H Urine Glucose (UA) Normal Urine Ketones 5 H Urine Occult Blood 25 H Urine Nitrite Positive H Urine Bilirubin 6 H Urine Urobilinogen 1 H Ur Leukocyte Esterase 100 H Urine RBC 0 SEEN Urine WBC 5-10 SEEN Ur Squamous Epith Cells 5-10 SEEN Amorphous Sediment 3+ Urine Bacteria 1+ Hyaline Casts 25-50 SEEN Coarse Granular Casts 0-5 SEEN Urine Mucus 0 SEEN Ur Random Sodium Urine Creatinine Hep Bs Antigen Hep B Core Total Ab MRSA (PCR) POC Glucose 185 H 08/19/19 08/19/19 08/19/19 02:45 02:45 02:45 WBC RBC Hgb Hct MCV MCH MCHC RDW Std Deviation RDW Coeff of Sotero Plt Count MPV Immature Gran % (Auto) Neut % (Auto) Lymph % (Auto) [place] % (Auto) Eos % (Auto) Baso % (Auto) Absolute Neuts (auto) Absolute Lymphs (auto) Nucleated RBC % Differential Comment Diff Path Review RBC Morphology PT INR APTT Specimen Type Sample Site VBG pH VBG pO2 VBG O2 Sat (Calc) VBG O2 Content VBG Base Excess POC Mix VBG pCO2 Pt Tmp O2 Delivery Device Blood Gas Notified Whom Blood Gas Notified Time Sodium 141 Potassium 4.5 Chloride 92 L Carbon Dioxide 3.0 L* Anion Gap 46 H BUN 79 H Creatinine 10.10 H* Estim Creat Clear Calc 7.16 Est GFR (MDRD) Af Amer 7 L Est GFR (MDRD) Non-Af 6 L BUN/Creatinine Ratio 7.8 L Glucose 178 H Hemoglobin A1c 6.6 H Lactic Acid Calcium 7.6 L Phosphorus 15.6 H* Magnesium 2.4 Total Bilirubin Direct Bilirubin AST ALT Alkaline Phosphatase Troponin I Total Protein Albumin Globulin Lipase Urine Color Urine Clarity Urine pH Ur Specific [place] Urine Protein Urine Glucose (UA) Urine Ketones Urine Occult Blood Urine Nitrite Urine Bilirubin Urine Urobilinogen Ur Leukocyte Esterase Urine RBC Urine WBC Ur Squamous Epith Cells Amorphous Sediment Urine Bacteria Hyaline Casts Coarse Granular Casts Urine Mucus Ur Random Sodium Urine Creatinine Hep Bs Antigen Hep B Core Total Ab MRSA (PCR) POC Glucose 08/19/19 08/19/19 08/19/19 02:45 02:45 06:30 WBC 31.9 H* RBC 4.16 L Hgb 12.2 L Hct 40.3 MCV 96.9 H MCH 29.3 MCHC 30.3 L RDW Std Deviation 50.2 H RDW Coeff of Sotero 14.1 Plt Count 318 MPV 10.9 Immature Gran % (Auto) 1.600 H Neut % (Auto) 75.8 H Lymph % (Auto) 14.2 L [place] % (Auto) 8.0 Eos % (Auto) 0.1 Baso % (Auto) 0.3 Absolute Neuts (auto) 24.1 H Absolute Lymphs (auto) 4.53 H Nucleated RBC % 0 Differential Comment SCANNED Diff Path Review May foll RBC Morphology PT INR APTT Specimen Type Sample Site VBG pH VBG pO2 VBG O2 Sat (Calc) VBG O2 Content VBG Base Excess POC Mix VBG pCO2 Pt Tmp O2 Delivery Device Blood Gas Notified Whom Blood Gas Notified Time Sodium Potassium Chloride Carbon Dioxide Anion Gap BUN Creatinine Estim Creat Clear Calc Est GFR (MDRD) Af Amer Est GFR (MDRD) Non-Af BUN/Creatinine Ratio Glucose Hemoglobin A1c Lactic Acid 24.2 H* Calcium Phosphorus Magnesium Total Bilirubin Direct Bilirubin AST ALT Alkaline Phosphatase Troponin I Total Protein Albumin Globulin Lipase Urine Color Urine Clarity Urine pH Ur Specific [place] Urine Protein Urine Glucose (UA) Urine Ketones Urine Occult Blood Urine Nitrite Urine Bilirubin Urine Urobilinogen Ur Leukocyte Esterase Urine RBC Urine WBC Ur Squamous Epith Cells Amorphous Sediment Urine Bacteria Hyaline Casts Coarse Granular Casts Urine Mucus Ur Random Sodium Urine Creatinine 75.30 Hep Bs Antigen Hep B Core Total Ab MRSA (PCR) POC Glucose 08/19/19 08/19/19 08/19/19 06:30 06:48 06:48 WBC RBC Hgb Hct MCV MCH MCHC RDW Std Deviation RDW Coeff of Sotero Plt Count MPV Immature Gran % (Auto) Neut % (Auto) Lymph % (Auto) [place] % (Auto) Eos % (Auto) Baso % (Auto) Absolute Neuts (auto) Absolute Lymphs (auto) Nucleated RBC % Differential Comment Diff Path Review RBC Morphology PT INR APTT Specimen Type Sample Site VBG pH VBG pO2 VBG O2 Sat (Calc) VBG O2 Content VBG Base Excess POC Mix VBG pCO2 Pt Tmp O2 Delivery Device Blood Gas Notified Whom Blood Gas Notified Time Sodium Potassium Chloride Carbon Dioxide Anion Gap BUN Creatinine Estim Creat Clear Calc Est GFR (MDRD) Af Amer Est GFR (MDRD) Non-Af BUN/Creatinine Ratio Glucose Hemoglobin A1c Lactic Acid Calcium Phosphorus Magnesium Total Bilirubin Direct Bilirubin AST ALT Alkaline Phosphatase Troponin I Total Protein Albumin Globulin Lipase Urine Color Urine Clarity Urine pH Ur Specific [place] Urine Protein Urine Glucose (UA) Urine Ketones Urine Occult Blood Urine Nitrite Urine Bilirubin Urine Urobilinogen Ur Leukocyte Esterase Urine RBC Urine WBC Ur Squamous Epith Cells Amorphous Sediment Urine Bacteria Hyaline Casts Coarse Granular Casts Urine Mucus Ur Random Sodium 102 Urine Creatinine Hep Bs Antigen Pending Hep B Core Total Ab Pending MRSA (PCR) POC Glucose 08/19/19 08/19/19 08/19/19 06:50 06:54 07:30 WBC RBC Hgb Hct MCV MCH MCHC RDW Std Deviation RDW Coeff of Sotero Plt Count MPV Immature Gran % (Auto) Neut % (Auto) Lymph % (Auto) [place] % (Auto) Eos % (Auto) Baso % (Auto) Absolute Neuts (auto) Absolute Lymphs (auto) Nucleated RBC % Differential Comment Diff Path Review RBC Morphology PT INR APTT Specimen Type Sample Site VBG pH VBG pO2 VBG O2 Sat (Calc) VBG O2 Content VBG Base Excess POC Mix VBG pCO2 Pt Tmp O2 Delivery Device Blood Gas Notified Whom Blood Gas Notified Time Sodium Potassium Chloride Carbon Dioxide Anion Gap BUN Creatinine Estim Creat Clear Calc Est GFR (MDRD) Af Amer Est GFR (MDRD) Non-Af BUN/Creatinine Ratio Glucose Hemoglobin A1c Lactic Acid Calcium Phosphorus Magnesium Total Bilirubin Direct Bilirubin AST ALT Alkaline Phosphatase Troponin I 0.301 H Total Protein Albumin Globulin Lipase Urine Color Urine Clarity Urine pH Ur Specific [place] Urine Protein Urine Glucose (UA) Urine Ketones Urine Occult Blood Urine Nitrite Urine Bilirubin Urine Urobilinogen Ur Leukocyte Esterase Urine RBC Urine WBC Ur Squamous Epith Cells Amorphous Sediment Urine Bacteria Hyaline Casts Coarse Granular Casts Urine Mucus Ur Random Sodium Urine Creatinine Hep Bs Antigen Hep B Core Total Ab MRSA (PCR) Negative POC Glucose 241 H 08/19/19 08/19/19 08/20/19 13:00 13:00 03:30 WBC 15.3 H RBC 3.68 L Hgb 10.7 L Hct 31.3 L MCV 85.1 D MCH 29.1 MCHC 34.2 D RDW Std Deviation 42.7 RDW Coeff of Sotero 13.7 Plt Count 165 MPV 10.4 Immature Gran % (Auto) 0.300 Neut % (Auto) 73.5 H Lymph % (Auto) 15.8 L [place] % (Auto) 10.1 H Eos % (Auto) 0.1 Baso % (Auto) 0.2 Absolute Neuts (auto) 11.3 H Absolute Lymphs (auto) 2.43 Nucleated RBC % 0 Differential Comment SCANNED Diff Path Review May foll RBC Morphology PT INR APTT Specimen Type Sample Site VBG pH VBG pO2 VBG O2 Sat (Calc) VBG O2 Content VBG Base Excess POC Mix VBG pCO2 Pt Tmp O2 Delivery Device Blood Gas Notified Whom Blood Gas Notified Time Sodium 138 Potassium 3.4 L Chloride 98 Carbon Dioxide 26.0 Anion Gap 14 BUN 26 H Creatinine 4.02 H Estim Creat Clear Calc 18.00 Est GFR (MDRD) Af Amer 20 L Est GFR (MDRD) Non-Af 17 L BUN/Creatinine Ratio 6.5 L Glucose 67 L Hemoglobin A1c Lactic Acid 3.4 H* Calcium 7.6 L Phosphorus Magnesium Total Bilirubin Direct Bilirubin AST ALT Alkaline Phosphatase Troponin I Total Protein Albumin Globulin Lipase Urine Color Urine Clarity Urine pH Ur Specific [place] Urine Protein Urine Glucose (UA) Urine Ketones Urine Occult Blood Urine Nitrite Urine Bilirubin Urine Urobilinogen Ur Leukocyte Esterase Urine RBC Urine WBC Ur Squamous Epith Cells Amorphous Sediment Urine Bacteria Hyaline Casts Coarse Granular Casts Urine Mucus Ur Random Sodium Urine Creatinine Hep Bs Antigen Hep B Core Total Ab MRSA (PCR) POC Glucose 08/20/19 08/20/19 03:30 03:30 WBC RBC Hgb Hct MCV MCH MCHC RDW Std Deviation RDW Coeff of Sotero Plt Count MPV Immature Gran % (Auto) Neut % (Auto) Lymph % (Auto) [place] % (Auto) Eos % (Auto) Baso % (Auto) Absolute Neuts (auto) Absolute Lymphs (auto) Nucleated RBC % Differential Comment Diff Path Review RBC Morphology PT INR APTT Specimen Type Sample Site VBG pH VBG pO2 VBG O2 Sat (Calc) VBG O2 Content VBG Base Excess POC Mix VBG pCO2 Pt Tmp O2 Delivery Device Blood Gas Notified Whom Blood Gas Notified Time Sodium 134 L Potassium 3.1 L Chloride 89 L Carbon Dioxide 38.0 H Anion Gap Cancelled BUN 38 H Creatinine 5.83 H Estim Creat Clear Calc 12.41 Est GFR (MDRD) Af Amer 13 L Est GFR (MDRD) Non-Af 11 L BUN/Creatinine Ratio 6.5 L Glucose 140 H Hemoglobin A1c Lactic Acid 2.8 H* Calcium 6.9 L Phosphorus 1.4 L Magnesium Total Bilirubin Direct Bilirubin AST ALT Alkaline Phosphatase Troponin I Total Protein Albumin 2.8 L Globulin Lipase Urine Color Urine Clarity Urine pH Ur Specific [place] Urine Protein Urine Glucose (UA) Urine Ketones Urine Occult Blood Urine Nitrite Urine Bilirubin Urine Urobilinogen Ur Leukocyte Esterase Urine RBC Urine WBC Ur Squamous Epith Cells Amorphous Sediment Urine Bacteria Hyaline Casts Coarse Granular Casts Urine Mucus Ur Random Sodium Urine Creatinine Hep Bs Antigen Hep B Core Total Ab MRSA (PCR) POC Glucose Microbiology 08/19/19 07:20 Mucosa - Nasopharyngeal Respiratory Panel (PCR) - Final 08/18/19 23:30 Mucosa - Nasopharyngeal Influenza Types A,B Direct FA (PAULETTE) - Final Clinical Impression(s) from Imaging Studies Abdomen/Pelvis CT 08/18/19 22:42 IMPRESSION: 1. Slitlike IVC suggests the sequela of hypovolemia and dehydration. 2. Hepatic steatosis. 3. Fluid-filled distended stomach suggests possible sequela of gastroparesis. 4. Nonspecific thickening of the wall of the hepatic flexure of the colon may be the result of previous or chronic infection or inflammation. Electronically Signed: Kanwal Morales MD at 0:44 EST , Service support , Chest X-Ray 08/18/19 22:43 IMPRESSION: No acute process Electronically Signed: Elie Davis MD at 23:52 EST , Service support , KUB X-Ray 08/19/19 00:01 IMPRESSION: NGT in adequate position. at 0203 Reported and signed by: Young Smith MD Electronically Signed: Young Smith MD at 2:02 EST Tel , Service support , Chest X-Ray 08/19/19 04:26 IMPRESSION: Inadequate positioning of the large bore right IJ catheter. It enters into the right IJ, and then traverses laterally into the subclavian and axillary veins. It should be repositioned. Chronic interestitial changes. No radiographic evidence of acute cardiopulmonary disease. at 0558 Reported and signed by: Young Smith MD Electronically Signed: Young Smith MD at 5:57 EST Tel , Service support , ADDENDUM: 08/19/19 0612 IMPRESSION: Inadequate positioning of the large bore right IJ catheter. It enters into the right IJ, and then traverses laterally into the subclavian and axillary veins. It should be repositioned. Chronic interestitial changes. No radiographic evidence of acute cardiopulmonary disease. at 0558 Reported and signed by: Young Smith MD N.B. : The above information has been verbally conveyed by Young Smith MD to Ro Huggins RN, on 08/19/2019 06:05:56 (ET). Electronically Signed: Young Smith MD at 5:57 EST Tel , Service support , Medical Necessity - Tobacco Use Smoking Status: Current every day smoker Tobacco Use: Cigarettes Assessment/Plan All Active Problems (Last Updated 08/19/19 @ 03:[address] Ranjan Rocha MD) Metabolic acidosis (Acute) Gastroparesis (Acute) Lactic acidosis (Acute) UTI (urinary tract infection) (Acute) Acute renal failure (Acute) Septic shock (Acute) Hypoglycemia (Acute) RECOMMENDATIONS: 1. Continue hemodialysis support per nephrology recommendations. Stop bicarbonate infusion. 2. Continue broad-spectrum antimicrobials, pending infectious work-up. 3. Speech therapy evaluation, prior to advancement of diet. 4. Electrolyte repletion per nephrology. 5. Continue appropriate ICU prophylaxis. 6. Encourage incentive spirometer use while in bed. IMPRESSIONS: 1. Septic shock Resolved. Potential urinary source of infection. Plain film chest x-ray did not reveal evidence of a focal infiltrate. The patient will be continued on broad-spectrum antimicrobials, pending infectious work-up. He has been successfully weaned from vasopressor support and remains hemodynamically stable for now. Recommend continuing to monitor in ICU setting yet today. 2. Acute kidney injury/hypokalemia/hyperphosphatemia Improving. The patient presented to the hospital with profound kidney injury in the setting of intravascular volume depletion. Nephrology is currently following to assist with hemodialysis needs. Okay to stop continuous bicarbonate infusion. 3. Significant lactic acidosis Resolved. Likely a combination of both type A and type B lactic acidemia in the setting of septic shock, coupled with the concurrent use of metformin in the setting of decreased renal function. 4. History of tobacco dependency The patient does have a rather extensive smoking history. For now, the patient can be continued on nicotine replacement therapy. I would recommend outpatient pulmonary follow-up so that baseline PFTs can be obtained. Smoking cessation counseling was provided. 5. Diabetes mellitus/hypertension/hyperlipidemia Complicates care, management, recovery and prognosis. Continue to hold home antihypertensives. This note was generated with [employer] dictation software. It may contain incorrect words, spelling, and punctuation that were not noted in checking the note before signing. Code Visit Inpatient E&M: 43457 Subs Hosp L3
[2019-08-20 07:34] LABS: Reflex Lactate? Y
--- NOTE | 2019-08-20 08:43 | PCM.PN.SRG ---
Patient Problems: Active and Suspected Problems (Last Updated 08/19/19 @ 03:[address] Ranjan Rocha MD) Metabolic acidosis (Acute) Gastroparesis (Acute) Lactic acidosis (Acute) UTI (urinary tract infection) (Acute) Acute renal failure (Acute) Septic shock (Acute) Hypoglycemia (Acute) Subjective: Patient denies any nausea or vomiting or abdominal pain. - Physical Exam Vitals/I&O's: Vital Signs Temp Pulse Resp BP Pulse Ox 98.1 F 105 H 13 97/64 95 08/20/19 07:00 08/20/19 08:00 08/20/19 08:00 08/20/19 08:00 08/20/19 08:00 Oxygen Delivery Method Room Air Weight: 163 lb 2.273 oz Body Mass Index (BMI) 27.8 Finger Stick Blood Glucose 287 Intake and Output for Last 24 Hours 08/18/19 08/19/19 08/20/19 23:59 23:59 23:59 Intake Total 6543.10 / 6543.10 1200 / 1200 Output Total 2175 / 2175 400 / 400 Balance 4368.10 / 4368.10 800 / 800 General: Alert, Oriented x3, Cooperative, No apparent distress Neck: - - Right lower neck dressed clean dry and intact Abdomen: Soft, Non Tender, Non-Distended Extremities: - - Right femoral dialysis line in place and dressed clean dry and intact Microbiology Past 72 Hours 08/19/19 07:20 Mucosa - Nasopharyngeal Respiratory Panel (PCR) - Final 08/18/19 23:30 Mucosa - Nasopharyngeal Influenza Types A,B Direct FA (PAULETTE) - Final Laboratory Results 08/19/19 13:00: Sodium 138, Potassium 3.4 L, Chloride 98, Carbon Dioxide 26.0, Anion Gap 14, BUN 26 H, Creatinine 4.02 H, Estim Creat Clear Calc 18.00, Est GFR (MDRD) Af Amer 20 L, Est GFR (MDRD) Non-Af 17 L, BUN/Creatinine Ratio 6.5 L, Glucose 67 L, Calcium 7.6 L 08/19/19 13:00: Lactic Acid 3.4 H* 08/20/19 03:30: WBC 15.3 H, RBC 3.68 L, Hgb 10.7 L, Hct 31.3 L, MCV 85.1 D, MCH 29.1, MCHC 34.2 D, RDW Std Deviation 42.7, RDW Coeff of Sotero 13.7, Plt Count 165, MPV 10.4, Immature Gran % (Auto) 0.300, Neut % (Auto) 73.5 H, Lymph % (Auto) 15.8 L, Parker % (Auto) 10.1 H, Eos % (Auto) 0.1, Baso % (Auto) 0.2, Absolute Neuts (auto) 11.3 H, Absolute Lymphs (auto) 2.43, Nucleated RBC % 0, Differential Comment SCANNED, Diff Path Review October08/20/19 03:30: Sodium 134 L, Potassium 3.1 L, Chloride 89 L, Carbon Dioxide 38.0 H, Anion Gap Cancelled, BUN 38 H, Creatinine 5.83 H, Estim Creat Clear Calc 12.41, Est GFR (MDRD) Af Amer 13 L, Est GFR (MDRD) Non-Af 11 L, BUN/Creatinine Ratio 6.5 L, Glucose 140 H, Calcium 6.9 L, Phosphorus 1.4 L, Albumin 2.8 L 08/20/19 03:30: Lactic Acid 2.8 H* Current Medications Chlorhexidine Gluconate () 1 each TOPICAL DAILY [facility] Last Admin: 08/19/19 11:52 Dose: 1 each Documented by: Enoxaparin Sodium (Lovenox) 30 mg SC DAILY [facility] Last Admin: 08/19/19 13:30 Dose: Not Given Documented by: Glucagon () 1 mg IM .X1 PRN PRN Reason: Hypoglycemia Heparin Sodium (Porcine) () 10,000 units IV PRN PRN Piperacillin Sod/Tazobactam (Sod 3.375 gm/ Sodium Chloride) 50 mls @ 12.5 mls/hr IV Q12 [facility] Last Infusion: 08/20/19 01:24 Dose: Infused Documented by: Dextrose (Dextrose 10%-Water) 250 mls @ 999 mls/hr IV .Q16M PRN; Protocol PRN Reason: HYPOGLYCEMIA Last Infusion: 08/19/19 14:52 Dose: Infused Documented by: Sodium Chloride () 250 mls @ 15 mls/hr IV .[id number] PRN PRN Reason: Saline Flush Sodium Chloride () 250 mls @ 15 mls/hr IV .[id number] PRN PRN Reason: Additional IVPB Infusion Sodium Bicarbonate 150 meq/ (Dextrose) 1,150 mls @ 150 mls/hr IV .[id number] [facility] Last Admin: 08/20/19 03:25 Dose: 150 mls/hr Documented by: Norepinephrine Bitartrate 8 mg (/ Sodium Chloride) 250 mls @ 9.375 mls/hr CONT INF .[id number] [facility]; Protocol Last Admin: 08/20/19 07:57 Dose: Not Given Documented by: Pantoprazole Sodium 40 mg/ (Sodium Chloride) 110 mls @ 330 mls/hr IV Q12 [facility] Last Infusion: 08/19/19 21:23 Dose: Infused Documented by: Nicotine (Nicoderm Cq (Pbkc)) 14 mg TRANSDERM. DAILY [facility] Last Admin: 08/19/19 05:57 Dose: Not Given Documented by: Ondansetron HCl (Zofran) 4 mg IV Q6H PRN PRN PRN Reason: NAUSEA/VOMITING Prochlorperazine Edisylate (Compazine Iv) 5 mg IV Q4H PRN PRN PRN Reason: Breakthrough Nausea/Vomiting Sodium Chloride () 10 - 40 ml IV UD PRN PRN Reason: SALINE FLUSH Medical Necessity - Tobacco Use Smoking Status: Current every day smoker Tobacco Use: Cigarettes Assessment/Plan All Active Problems (Last Updated 08/19/19 @ 03:[address] Ranjan Rocha MD) Metabolic acidosis (Acute) Gastroparesis (Acute) Lactic acidosis (Acute) UTI (urinary tract infection) (Acute) Acute renal failure (Acute) Septic shock (Acute) Hypoglycemia (Acute) 54-year-old male with septic shock?improved, acute kidney injury need for emergent dialysis?improved, history of diabetes Got dialysis yesterday through the femoral dialysis catheter. Will await nephrology's evaluation if he needs further dialysis or if pt would be of need to have a tunneled dialysis catheter as this would plan to place tomorrow if needed. Did also discussed with the patient and he was agreeable with the procedure if needed. Masha Hernandez M.D. Pager: [phone] [facility] [address] [place] [address], [facility], [address] [place] [address] Office: [phone] Code Visit Inpatient E&M: 96545 Subs Hosp L1
[2019-08-20 09:30] LABS: Hepatitis B Surface Antigen Non-Reactive (Nonreactive)
[2019-08-20] MEDS: CHLORHEXIDINE GLUC 2% CLOTH 1 EACH TOWELETTE TOPICAL (10:10)
--- NOTE | 2019-08-20 10:12 | CASEMGMT ---
RN CM Assessment Note Presentation: Septic Shock, Hypoglycemia, Acute Kidney Failure-needed hemodialysis (first run 08/19/18), UTI Intro role of CM and purpose of RN CM assessment to patient and his sister Delfina Brown. . Demographics, PCP and Pharmacy verified. Pt with history of mental retardation, anxiety disorder, ADHD, sees psychiatrist @ [facility]. Sister is rescheduling an appt as pt is in hospital. Pt lives with sister who is very attentivie and able to assist with any care needs. -Sisster states pt does know how to check BS, however does not always remember to do twice a day. She plans to assist more with this PCP: [facility]. Per sister, she and pt both go to [facility] and no difficulties. RN CM offered to look up PCP [facility] with their insurances as sister would like to establish with a PCP for herself and her brother with same physician. List given to her for her May and pt's [facility]. Specialists: [facility] Preferred [facility]acy: [facility] Insurance: [facility] Prescription Benefit: yes LNOK: Sister Delfina Brown. Living Arrangements: Lives with sister in two story home. No difficulty with stairs. Pt is generally independent in ADL, but family is available to assist. No care needs identified at this time. Transportation: Family drives DME: Blood Glucose monitoring machine and supplies (belongs to sister, but they are sharing, and do not wish for his own equipment at this time) HHC: none SW Referral: sister requests pt complete DPOA papers prior to leaving hospital. Patient DC goals: Home DC PLAN: Anticipate Home on discharge. CM to follow for possible Hemodialysis setup if outpt dialysis is needed on dc- not determined yet. Terrie GUTIERREZN RN ACM
[2019-08-20 11:40] LABS: Bedside Glucose 114 mg/dL (70-110)
--- NOTE | 2019-08-20 11:44 | CASEMGMT ---
Social Work SW received referral for advance directives from [place]. SW met with pt and pt sister Delfina. Pt able to answer SW questions appropriately and pt is A&O x3. SW explained HCPOA and Living will to pt and pt choosing to complete both documents on this date. Pt named Delfina as HCPOA. Copy placed on pt chart and original given to pt. GONSALO Hernandez
[2019-08-20 14:02] LABS: Pathologist Review Reviewed
[2019-08-20 14:04] LABS: Pathologist Review Reviewed
--- NOTE | 2019-08-20 14:55 | CHAPLAIN ---
Type of Pastoral Visit _x__ Initial Visit ___ Follow-up Visit ___ On-call Visit ___ General Patient Visit ___ Spiritual Assessment ___ Family Conference ___ Bereavement ___ Rapid Response ___ Code Blue ___ Other (describe below) Pastoral Care Referral From _x__ Patient ___ Family ___ Nurse ___ Physician ___ Food Truck Caterer ___ Absence Management Consultant ___ Other (describe below) Sacrament/Intervention _x__ Active listening ___ Anointing ___ Catholic ___ Bereavement ___ Communion _x__ Kelly exploration ___ _x__ Life review _x__ Prayer ___ Reconciliation ___ Sacrament of Sick _x__ Supportive presence ___ Wedding ___ Other (describe below) Pastoral Comments
--- NOTE | 2019-08-20 16:02 | PCM.PN.REN ---
Patient Problems: Active and Suspected Problems (Last Updated 08/19/19 @ 03:[address] Ranjan Rocha MD) Metabolic acidosis (Acute) Gastroparesis (Acute) Lactic acidosis (Acute) UTI (urinary tract infection) (Acute) Acute renal failure (Acute) Septic shock (Acute) Hypoglycemia (Acute) Subjective: No new complaints. - Physical Exam Vitals/I&O's: Vital Signs Temp Pulse Resp BP Pulse Ox 98.4 F 66 19 H 98/60 96 08/20/19 12:00 08/20/19 15:00 08/20/19 15:00 08/20/19 15:00 08/20/19 15:00 Oxygen Delivery Method Room Air Weight: 74 kg Body Mass Index (BMI) 27.8 Finger Stick Blood Glucose 287 Intake and Output for Last 24 Hours 08/18/19 08/19/19 08/20/19 23:59 23:59 23:59 Intake Total 6543.10 / 6543.10 2490 / 2490 Output Total 2175 / 2175 850 / 850 Balance 4368.10 / 4368.10 1640 / 1640 General: Alert, Oriented x3, Cooperative HEENT: Atraumatic, PERRLA, EOMI, Normocephalic Neck: Supple, No JVD, Negative Carotid Bruits Lungs: Clear to auscultation, Normal air movement Cardiovascular: Regular rate, No murmurs Abdomen: Bowel Sounds Present, Soft, Non Tender Extremities: No edema, Capillary Refill Less than 3 Seconds Skin: No rashes, No breakdown Musculoskeletal: No Tenderness to Palpation of Joints or Extremities Neurological: Cranial nerves II-XII grossly intact Psych/Mental Status: Normal Affect, Appropriate Microbiology Past 72 Hours 08/19/19 07:20 Mucosa - Nasopharyngeal Respiratory Panel (PCR) - Final 08/18/19 23:30 Mucosa - Nasopharyngeal Influenza Types A,B Direct FA ([facility]) - Final Laboratory Results 08/18/19 23:58: Specimen Type Cancelled, Sample Site Cancelled, O2 % Cancelled, VBG pH Cancelled, VBG pH (Temp Correct) Cancelled, VBG pCO2 (Temp Corrct Cancelled, VBG pO2 Cancelled, VBG O2 Sat (Calc) Cancelled, VBG O2 Content Cancelled, VBG Base Excess Cancelled, POC Mix VBG pCO2 Pt Tmp Cancelled, Respiration Rate Cancelled, O2 Delivery Device Cancelled, Liter Flow Cancelled, Minute Volume Cancelled, Tidal Volume Cancelled, POC PEEP Cancelled, POC Pressure Suppt Cancelled, EPAP Cancelled, IPAP Cancelled, Blood Gas Notified Whom Cancelled, Blood Gas Notified Time Cancelled 08/19/19 02:45: Diff Path Review Reviewed 08/19/19 06:48: Hep Bs Antigen Non-Reactive 08/20/19 03:30: WBC 15.3 H, RBC 3.68 L, Hgb 10.7 L, Hct 31.3 L, MCV 85.1 D, MCH 29.1, MCHC 34.2 D, RDW Std Deviation 42.7, RDW Coeff of Sotero 13.7, Plt Count 165, MPV 10.4, Immature Gran % (Auto) 0.300, Neut % (Auto) 73.5 H, Lymph % (Auto) 15.8 L, [place] % (Auto) 10.1 H, Eos % (Auto) 0.1, Baso % (Auto) 0.2, Absolute Neuts (auto) 11.3 H, Absolute Lymphs (auto) 2.43, Nucleated RBC % 0, Differential Comment SCANNED, Diff Path Review Reviewed 08/20/19 03:30: Sodium 134 L, Potassium 3.1 L, Chloride 89 L, Carbon Dioxide 38.0 H, Anion Gap Cancelled, BUN 38 H, Creatinine 5.83 H, Estim Creat Clear Calc 12.41, Est GFR (MDRD) Af Amer 13 L, Est GFR (MDRD) Non-Af 11 L, BUN/Creatinine Ratio 6.5 L, Glucose 140 H, Calcium 6.9 L, Phosphorus 1.4 L, Albumin 2.8 L 08/20/19 03:30: Lactic Acid 2.8 H* 08/20/19 11:39: POC Glucose 114 H Current Medications Chlorhexidine Gluconate () 1 each TOPICAL DAILY [facility] Last Admin: 08/20/19 10:10 Dose: 1 each Documented by: Enoxaparin Sodium (Lovenox) 30 mg SC DAILY [facility] Last Admin: 08/20/19 10:10 Dose: Not Given Documented by: Glucagon () 1 mg IM .X1 PRN PRN Reason: Hypoglycemia Heparin Sodium (Porcine) () 10,000 units IV PRN PRN Piperacillin Sod/Tazobactam (Sod 3.375 gm/ Sodium Chloride) 50 mls @ 12.5 mls/hr IV Q12 [facility] Last Infusion: 08/20/19 14:10 Dose: Infused Documented by: Dextrose (Dextrose 10%-Water) 250 mls @ 999 mls/hr IV .Q16M PRN; Protocol PRN Reason: HYPOGLYCEMIA Last Infusion: 08/19/19 14:52 Dose: Infused Documented by: Sodium Chloride () 250 mls @ 15 mls/hr IV .[id number] PRN PRN Reason: Saline Flush Sodium Chloride () 250 mls @ 15 mls/hr IV .[id number] PRN PRN Reason: Additional IVPB Infusion Norepinephrine Bitartrate 8 mg (/ Sodium Chloride) 250 mls @ 9.375 mls/hr CONT INF .[id number] [facility]; Protocol Last Admin: 08/20/19 07:57 Dose: Not Given Documented by: Pantoprazole Sodium 40 mg/ (Sodium Chloride) 110 mls @ 330 mls/hr IV Q12 [facility] Last Infusion: 08/20/19 10:28 Dose: Infused Documented by: Insulin Human Lispro (Humalog Kwikpen (Bkc)) 0 unit SC Q6 [facility]; Protocol Last Admin: 08/20/19 11:40 Dose: Not Given Documented by: Nicotine (Nicoderm Cq (Pbkc)) 14 mg TRANSDERM. DAILY [facility] Last Admin: 08/20/19 10:10 Dose: Not Given Documented by: Ondansetron HCl (Zofran) 4 mg IV Q6H PRN PRN PRN Reason: NAUSEA/VOMITING Prochlorperazine Edisylate (Compazine Iv) 5 mg IV Q4H PRN PRN PRN Reason: Breakthrough Nausea/Vomiting Sodium Chloride () 10 - 40 ml IV UD PRN PRN Reason: SALINE FLUSH Medical Necessity - Tobacco Use Smoking Status: Current every day smoker Tobacco Use: Cigarettes Assessment/Plan All Active Problems (Last Updated 08/19/19 @ 03:[address] Ranjan Rocha MD) Metabolic acidosis (Acute) Gastroparesis (Acute) Lactic acidosis (Acute) UTI (urinary tract infection) (Acute) Acute renal failure (Acute) Septic shock (Acute) Hypoglycemia (Acute) Acute renal failure Severe lactic acidosis Septic shock, likely urinary origin, clinically better Presented with severe renal failure. S/p dialysis. Creatinine has increased from yesterday to today. Urine output is somewhat better. Will plan for dialysis today again. He has a right femoral dialysis catheter for access. Ideally this should not stay in for too long. Blood cultures will be finalized later today or early tomorrow. If blood cultures remain negative, can switch this to a tunneled line possibly late tomorrow Lactic acidosis. Combination of type a and type B. Levels have come down to 2.4. Hypokalemia. Dialysis on 4K bath today. Okay to stop bicarbonate drip
--- NOTE | 2019-08-20 16:13 | US_ITS ---
EXAM DESCRIPTION: Bilateral renal ultrasound CLINICAL HISTORY: 54 years Male, NASRIN COMPARISON: CT scan of the abdomen and pelvis obtained on 08/18/2019 FINDINGS: Serial longitudinal and transverse scans of the kidneys were obtained utilizing a real time sector scanner. The renal measurements are as follows: Right kidney: 10.37 x 4.82 x 6.45 cm with a renal cortex measuring 1.7 cm in thickness. No cysts or masses are seen. Left kidney: 10.46 x 6.21x 6.36 cm with a renal cortex measuring 1.7 cm in thickness. No cysts or masses are seen. The echogenic relationship between the right renal cortex and the adjacent hepatic parenchyma is normal. No adrenal masses or lesions are seen. No fluid is noted in the Castillo''s pouch. The urinary bladder was not visualized. US/Kidney and Bladder IMPRESSION: Normal bilateral renal ultrasound. Electronically Signed: Oc Manning, at 9:10 EST Tel , Service support ,
--- NOTE | 2019-08-20 18:28 | PCM.PN.HOSP ---
Patient Problems: Active and Suspected Problems (Last Updated 08/19/19 @ 03:[address] Ranjan Rocha MD) Metabolic acidosis (Acute) Gastroparesis (Acute) Lactic acidosis (Acute) UTI (urinary tract infection) (Acute) Acute renal failure (Acute) Septic shock (Acute) Hypoglycemia (Acute) Subjective: Patient was seen and examined today in the ICU, he underwent dialysis today. Patient denies any fevers chills or diaphoresis. His family was in the room today and I discussed his care with them briefly. Vitals/I&O's: Vital Signs Temp Pulse Resp BP Pulse Ox 98.4 F 98 15 106/81 H 98 08/20/19 12:00 08/20/19 18:00 08/20/19 18:00 08/20/19 18:00 08/20/19 18:00 Oxygen Delivery Method Room Air Weight: 74 kg Body Mass Index (BMI) 27.8 Finger Stick Blood Glucose 287 Intake and Output for Last 24 Hours 08/18/19 08/19/19 08/20/19 23:59 23:59 23:59 Intake Total 6543.10 / 6543.10 2890 / 2890 Output Total 2175 / 2175 1250 / 1250 Balance 4368.10 / 4368.10 1640 / 1640 General: Alert, Oriented x3, Cooperative, No apparent distress, Well developed HEENT: Atraumatic, PERRLA, EOMI, Normocephalic Oral: Moist Mucosa Neck: Supple, No JVD, Trachea Midline, Thyroid Normal Size and Texture Lungs: Clear to auscultation, Normal air movement, No rhonchi, No wheeze, No rales Cardiovascular: Regular rate, Regular Rhythm, Normal S1, Normal S2, No murmurs Abdomen: Bowel Sounds Present, Soft, Non Tender, Non-Distended Extremities: No clubbing, No cyanosis, No edema, Capillary Refill Less than 3 Seconds Skin: No rashes, No breakdown Musculoskeletal: No Tenderness to Palpation of Joints or Extremities Neurological: Cranial nerves II-XII grossly intact, Neuro grossly intact, Sensory exam intact to light touch and pain, Coordination normal Psych/Mental Status: Normal Affect, Appropriate, Alert and oriented to time, place, person, mood and affect Microbiology Past 72 Hours 08/19/19 07:20 Mucosa - Nasopharyngeal Respiratory Panel (PCR) - Final 08/18/19 23:30 Mucosa - Nasopharyngeal Influenza Types A,B Direct FA ([facility]) - Final Laboratory Results 08/18/19 23:58: Specimen Type Cancelled, Sample Site Cancelled, O2 % Cancelled, VBG pH Cancelled, VBG pH (Temp Correct) Cancelled, VBG pCO2 (Temp Corrct Cancelled, VBG pO2 Cancelled, VBG O2 Sat (Calc) Cancelled, VBG O2 Content Cancelled, VBG Base Excess Cancelled, POC Mix VBG pCO2 Pt Tmp Cancelled, Respiration Rate Cancelled, O2 Delivery Device Cancelled, Liter Flow Cancelled, Minute Volume Cancelled, Tidal Volume Cancelled, POC PEEP Cancelled, POC Pressure Suppt Cancelled, EPAP Cancelled, IPAP Cancelled, Blood Gas Notified Whom Cancelled, Blood Gas Notified Time Cancelled 08/19/19 02:45: Diff Path Review Reviewed 08/19/19 06:48: Hep Bs Antigen Non-Reactive 08/20/19 03:30: WBC 15.3 H, RBC 3.68 L, Hgb 10.7 L, Hct 31.3 L, MCV 85.1 D, MCH 29.1, MCHC 34.2 D, RDW Std Deviation 42.7, RDW Coeff of Sotero 13.7, Plt Count 165, MPV 10.4, Immature Gran % (Auto) 0.300, Neut % (Auto) 73.5 H, Lymph % (Auto) 15.8 L, [place] % (Auto) 10.1 H, Eos % (Auto) 0.1, Baso % (Auto) 0.2, Absolute Neuts (auto) 11.3 H, Absolute Lymphs (auto) 2.43, Nucleated RBC % 0, Differential Comment SCANNED, Diff Path Review Reviewed 08/20/19 03:30: Sodium 134 L, Potassium 3.1 L, Chloride 89 L, Carbon Dioxide 38.0 H, Anion Gap Cancelled, BUN 38 H, Creatinine 5.83 H, Estim Creat Clear Calc 12.41, Est GFR (MDRD) Af Amer 13 L, Est GFR (MDRD) Non-Af 11 L, BUN/Creatinine Ratio 6.5 L, Glucose 140 H, Calcium 6.9 L, Phosphorus 1.4 L, Albumin 2.8 L 08/20/19 03:30: Lactic Acid 2.8 H* 08/20/19 11:39: POC Glucose 114 H Current Medications Chlorhexidine Gluconate () 1 each TOPICAL DAILY [facility] Last Admin: 08/20/19 10:10 Dose: 1 each Documented by: Enoxaparin Sodium (Lovenox) 30 mg SC DAILY [facility] Last Admin: 08/20/19 10:10 Dose: Not Given Documented by: Glucagon () 1 mg IM .X1 PRN PRN Reason: Hypoglycemia Heparin Sodium (Porcine) () 10,000 units IV PRN PRN Piperacillin Sod/Tazobactam (Sod 3.375 gm/ Sodium Chloride) 50 mls @ 12.5 mls/hr IV Q12 [facility] Last Infusion: 08/20/19 14:10 Dose: Infused Documented by: Dextrose (Dextrose 10%-Water) 250 mls @ 999 mls/hr IV .Q16M PRN; Protocol PRN Reason: HYPOGLYCEMIA Last Infusion: 08/19/19 14:52 Dose: Infused Documented by: Sodium Chloride () 250 mls @ 15 mls/hr IV .[id number] PRN PRN Reason: Saline Flush Sodium Chloride () 250 mls @ 15 mls/hr IV .[id number] PRN PRN Reason: Additional IVPB Infusion Norepinephrine Bitartrate 8 mg (/ Sodium Chloride) 250 mls @ 9.375 mls/hr CONT INF .[id number] [facility]; Protocol Last Titration: 08/20/19 16:42 Dose: Infused Documented by: Pantoprazole Sodium 40 mg/ (Sodium Chloride) 110 mls @ 330 mls/hr IV Q12 [facility] Last Infusion: 08/20/19 10:28 Dose: Infused Documented by: Insulin Human Lispro (Humalog Kwikpen (Bkc)) 0 unit SC Q6 [facility]; Protocol Last Admin: 08/20/19 11:40 Dose: Not Given Documented by: Nicotine (Nicoderm Cq (Pbkc)) 14 mg TRANSDERM. DAILY [facility] Last Admin: 08/20/19 10:10 Dose: Not Given Documented by: Ondansetron HCl (Zofran) 4 mg IV Q6H PRN PRN PRN Reason: NAUSEA/VOMITING Prochlorperazine Edisylate (Compazine Iv) 5 mg IV Q4H PRN PRN PRN Reason: Breakthrough Nausea/Vomiting Sodium Chloride () 10 - 40 ml IV UD PRN PRN Reason: SALINE FLUSH STROKE Vital Signs/Narrative: Vital Signs Pulse Resp BP Pulse Ox 08/20/19 18:00 98 15 106/81 H 98 08/20/19 17:00 94 19 H 104/77 98 08/20/19 16:00 94 12 108/68 97 08/20/19 15:00 66 19 H 98/60 96 Medical Necessity - Tobacco Use Smoking Status: Current every day smoker Tobacco Use: Cigarettes Assessment/Plan All Active Problems (Last Updated 08/19/19 @ 03:[address] Ranjan Rocha MD) Metabolic acidosis (Acute) Gastroparesis (Acute) Lactic acidosis (Acute) UTI (urinary tract infection) (Acute) Acute renal failure (Acute) Septic shock (Acute) Hypoglycemia (Acute) #1 septic shock-probably secondary to acute urinary tract infection, continue IV antibiotics #2 acute kidney injury with acute kidney failure-dialysis will be performed today #3 type 2 diabetes-monitor blood sugars #4 acute urinary tract infection-organism unknown at this time, continue present antibiotic coverage Code Visit Inpatient E&M: 79186 Subs Hosp L2
--- NOTE | 2019-08-20 19:09 | DIALYSIS ---
HD x3 hours completed at 1845, 2nd tx, tolerated well, UF 0mL, ran even per orders, accessed via right groin temporary dialysis catheter, worked well with lines reversed, high arterial pressures when ran art/art, dressing changed
[2019-08-20 19:51] LABS: Bedside Glucose 80 mg/dL (70-110)
[2019-08-20] MEDS: 0.9% Saline Lock 10 ML Syringe IV (21:33)
[2019-08-21] VITALS (26 sets, daily range): BP systolic 91–131; BP diastolic 61–96; PULSE 67–97; RESP 11–19; TEMP 36.4–37.3; O2SAT 94–99
[2019-08-21 00:15] LABS: Bedside Glucose 88 mg/dL (70-110)
[2019-08-21 04:29] LABS: Absolute Lymphocyte Count 2.21 X10^3/uL (0.83-4.51); Absolute Neutrophil Count 5.6 X10^3/uL (2.0-7.7); Basophil# 0.04 X10^3/uL; Basophil% 0.4 % (0-1); Eosinophil# 0.05 X10^3/uL; Eosinophils% 0.6 % (0-5); Hematocrit 32.3 % (40-54); Hemoglobin 10.8 g/dL (13.0-16.5); Lymphocyte # 2.21 X10^3/ul (4.0); Lymphocyte % 24.8 % (19-41); Mean Corp Hgb Conc 33.4 g/dL (32-36); Mean Corpuscular Hgb 29.4 pg (27.0-32.0); Mean Platelet Vol. 10.3 fl (6.2-12.0); Monocyte# 0.99 X10^3/uL; Monocyte% 11.1 % (0-10); NRBC Flagged by Analyzer 0 % (0-5); Neutrophil # 5.58 X10^3/uL (2.7-7.7); Neutrophil % 62.8 % (47-70); Platelet Count 136 K/mm3 (150-450); RBC Distribution Width CV 13.6 % (11.6-14.6); RBC Distribution Width SD 44.5 fl (35.1-43.9); Red Blood Count 3.67 M/mm3 (4.6-6.2); White Blood Count 8.9 K/mm3 (4.4-11.0)
[2019-08-21 04:43] LABS: Anion Gap 6 (5-15); BUN 23 mg/dL (7-18); BUN/Creat Ratio 4.8 RATIO (10-20); Calcium,Total 7.5 mg/dL (8.5-10.1); Chloride 102 mmol/L (98-107); Creatinine, Serum 4.76 mg/dL (0.70-1.30); EST Glomerular Filtration Rate 14 mL/min (>60); Est Glom Filt Rate - Afr Amer 17 mL/min (>60); Glucose 92 mg/dL (74-106); Potassium 3.4 mmol/L (3.5-5.1); Sodium Level 139 mmol/L (136-145)
[2019-08-21 06:16] LABS: Bedside Glucose 105 mg/dL (70-110)
--- NOTE | 2019-08-21 06:54 | PCM.PN.INT ---
Subjective: The patient was seen and examined at the bedside this morning. Events from the last 24 hours have been reviewed. The patient is currently afebrile, hemodynamically stable and maintaining appropriate oxygen saturations on room air. The patient did tolerate a 3-hour hemodialysis run yesterday. Metabolic derangements continue to improve. The patient is currently scheduled to undergo a tunneled hemodialysis catheter placement this afternoon. Potassium remains low this morning at 3.4. The patient was evaluated by speech therapy yesterday with dietary advancement per their recommendations. Objective: The patient's most recent lab work, culture data and imaging studies have all been personally reviewed. Respiratory viral panel was negative. Blood and urine cultures are still pending. General: Alert, Cooperative, No apparent distress HEENT: Atraumatic, PERRLA, Normocephalic Oral: No Gingival or Mucosal Lesions/ Ulcerations Neck: Supple, No Nodes, Trachea Midline Lungs: Diminished, - - Poor inspiratory effort Cardiovascular: Regular rate, Regular Rhythm, Normal S1, Normal S2 Abdomen: Bowel Sounds Present, Soft, Non Tender Extremities: No clubbing, No cyanosis Skin: No breakdown Musculoskeletal: No Tenderness to Palpation of Joints or Extremities Lymphatic: No Cervical, Supraclavicular, or Inguinal Adenopathy Neurological: Neuro grossly intact Psych/Mental Status: Normal Affect, Appropriate Vital Signs Temp Pulse Resp BP Pulse Ox 98.2 F 78 16 105/82 H 96 08/21/19 04:00 08/21/19 06:00 08/21/19 06:00 08/21/19 06:00 08/21/19 06:00 Oxygen Delivery Method Room Air Weight: 158 lb 11.725 oz Body Mass Index (BMI) 27.8 Finger Stick Blood Glucose 287 Intake and Output for Last 24 Hours 08/19/19 08/20/19 08/21/19 23:59 23:59 23:59 Intake Total 6543.10 / 6543.10 3100 / 3100 105 / 105 Output Total 2175 / 2175 1550 / 1550 450 / 450 Balance 4368.10 / 4368.10 1550 / 1550 -345 / -345 Labs (Last 48 Hours) 08/18/19 08/19/19 08/19/19 23:58 02:45 02:45 WBC RBC Hgb Hct MCV MCH MCHC RDW Std Deviation RDW Coeff of Sotero Plt Count MPV Immature Gran % (Auto) Neut % (Auto) Lymph % (Auto) [place] % (Auto) Eos % (Auto) Baso % (Auto) Absolute Neuts (auto) Absolute Lymphs (auto) Nucleated RBC % Differential Comment Diff Path Review Reviewed Specimen Type Cancelled Sample Site Cancelled O2 % Cancelled VBG pH Cancelled VBG pH (Temp Correct) Cancelled VBG pCO2 (Temp Corrct Cancelled VBG pO2 Cancelled VBG O2 Sat (Calc) Cancelled VBG O2 Content Cancelled VBG Base Excess Cancelled POC Mix VBG pCO2 Pt Tmp Cancelled Respiration Rate Cancelled O2 Delivery Device Cancelled Liter Flow Cancelled Minute Volume Cancelled Tidal Volume Cancelled POC PEEP Cancelled POC Pressure Suppt Cancelled EPAP Cancelled IPAP Cancelled Blood Gas Notified Whom Cancelled Blood Gas Notified Time Cancelled Sodium Potassium Chloride Carbon Dioxide Anion Gap BUN Creatinine Estim Creat Clear Calc Est GFR (MDRD) Af Amer Est GFR (MDRD) Non-Af BUN/Creatinine Ratio Glucose Hemoglobin A1c 6.6 H Lactic Acid Calcium Phosphorus Troponin I Albumin Ur Random Sodium Urine Creatinine Hep Bs Antigen MRSA (PCR) POC Glucose 08/19/19 08/19/19 08/19/19 06:30 06:30 06:48 WBC RBC Hgb Hct MCV MCH MCHC RDW Std Deviation RDW Coeff of Soetro Plt Count MPV Immature Gran % (Auto) Neut % (Auto) Lymph % (Auto) [place] % (Auto) Eos % (Auto) Baso % (Auto) Absolute Neuts (auto) Absolute Lymphs (auto) Nucleated RBC % Differential Comment Diff Path Review Specimen Type Sample Site O2 % VBG pH VBG pH (Temp Correct) VBG pCO2 (Temp Corrct VBG pO2 VBG O2 Sat (Calc) VBG O2 Content VBG Base Excess POC Mix VBG pCO2 Pt Tmp Respiration Rate O2 Delivery Device Liter Flow Minute Volume Tidal Volume POC PEEP POC Pressure Suppt EPAP IPAP Blood Gas Notified Whom Blood Gas Notified Time Sodium Potassium Chloride Carbon Dioxide Anion Gap BUN Creatinine Estim Creat Clear Calc Est GFR (MDRD) Af Amer Est GFR (MDRD) Non-Af BUN/Creatinine Ratio Glucose Hemoglobin A1c Lactic Acid Calcium Phosphorus Troponin I Albumin Ur Random Sodium 102 Urine Creatinine 75.30 Hep Bs Antigen Non-Reactive MRSA (PCR) POC Glucose 08/19/19 08/19/19 08/19/19 06:50 06:54 07:30 WBC RBC Hgb Hct MCV MCH MCHC RDW Std Deviation RDW Coeff of Sotero Plt Count MPV Immature Gran % (Auto) Neut % (Auto) Lymph % (Auto) [place] % (Auto) Eos % (Auto) Baso % (Auto) Absolute Neuts (auto) Absolute Lymphs (auto) Nucleated RBC % Differential Comment Diff Path Review Specimen Type Sample Site O2 % VBG pH VBG pH (Temp Correct) VBG pCO2 (Temp Corrct VBG pO2 VBG O2 Sat (Calc) VBG O2 Content VBG Base Excess POC Mix VBG pCO2 Pt Tmp Respiration Rate O2 Delivery Device Liter Flow Minute Volume Tidal Volume POC PEEP POC Pressure Suppt EPAP IPAP Blood Gas Notified Whom Blood Gas Notified Time Sodium Potassium Chloride Carbon Dioxide Anion Gap BUN Creatinine Estim Creat Clear Calc Est GFR (MDRD) Af Amer Est GFR (MDRD) Non-Af BUN/Creatinine Ratio Glucose Hemoglobin A1c Lactic Acid Calcium Phosphorus Troponin I 0.301 H Albumin Ur Random Sodium Urine Creatinine Hep Bs Antigen MRSA (PCR) Negative POC Glucose 241 H 08/19/19 08/19/19 08/20/19 13:00 13:00 03:30 WBC 15.3 H RBC 3.68 L Hgb 10.7 L Hct 31.3 L MCV 85.1 D MCH 29.1 MCHC 34.2 D RDW Std Deviation 42.7 RDW Coeff of Sotero 13.7 Plt Count 165 MPV 10.4 Immature Gran % (Auto) 0.300 Neut % (Auto) 73.5 H Lymph % (Auto) 15.8 L [place] % (Auto) 10.1 H Eos % (Auto) 0.1 Baso % (Auto) 0.2 Absolute Neuts (auto) 11.3 H Absolute Lymphs (auto) 2.43 Nucleated RBC % 0 Differential Comment SCANNED Diff Path Review Reviewed Specimen Type Sample Site O2 % VBG pH VBG pH (Temp Correct) VBG pCO2 (Temp Corrct VBG pO2 VBG O2 Sat (Calc) VBG O2 Content VBG Base Excess POC Mix VBG pCO2 Pt Tmp Respiration Rate O2 Delivery Device Liter Flow Minute Volume Tidal Volume POC PEEP POC Pressure Suppt EPAP IPAP Blood Gas Notified Whom Blood Gas Notified Time Sodium 138 Potassium 3.4 L Chloride 98 Carbon Dioxide 26.0 Anion Gap 14 BUN 26 H Creatinine 4.02 H Estim Creat Clear Calc 18.00 Est GFR (MDRD) Af Amer 20 L Est GFR (MDRD) Non-Af 17 L BUN/Creatinine Ratio 6.5 L Glucose 67 L Hemoglobin A1c Lactic Acid 3.4 H* Calcium 7.6 L Phosphorus Troponin I Albumin Ur Random Sodium Urine Creatinine Hep Bs Antigen MRSA (PCR) POC Glucose 08/20/19 08/20/19 08/20/19 03:30 03:30 11:39 WBC RBC Hgb Hct MCV MCH MCHC RDW Std Deviation RDW Coeff of Sotero Plt Count MPV Immature Gran % (Auto) Neut % (Auto) Lymph % (Auto) [place] % (Auto) Eos % (Auto) Baso % (Auto) Absolute Neuts (auto) Absolute Lymphs (auto) Nucleated RBC % Differential Comment Diff Path Review Specimen Type Sample Site O2 % VBG pH VBG pH (Temp Correct) VBG pCO2 (Temp Corrct VBG pO2 VBG O2 Sat (Calc) VBG O2 Content VBG Base Excess POC Mix VBG pCO2 Pt Tmp Respiration Rate O2 Delivery Device Liter Flow Minute Volume Tidal Volume POC PEEP POC Pressure Suppt EPAP IPAP Blood Gas Notified Whom Blood Gas Notified Time Sodium 134 L Potassium 3.1 L Chloride 89 L Carbon Dioxide 38.0 H Anion Gap Cancelled BUN 38 H Creatinine 5.83 H Estim Creat Clear Calc 12.41 Est GFR (MDRD) Af Amer 13 L Est GFR (MDRD) Non-Af 11 L BUN/Creatinine Ratio 6.5 L Glucose 140 H Hemoglobin A1c Lactic Acid 2.8 H* Calcium 6.9 L Phosphorus 1.4 L Troponin I Albumin 2.8 L Ur Random Sodium Urine Creatinine Hep Bs Antigen MRSA (PCR) POC Glucose 114 H 08/20/19 08/21/19 08/21/19 19:34 00:08 04:20 WBC 8.9 RBC 3.67 L Hgb 10.8 L Hct 32.3 L MCV 88.0 MCH 29.4 MCHC 33.4 RDW Std Deviation 44.5 H RDW Coeff of Sotero 13.6 Plt Count 136 L MPV 10.3 Immature Gran % (Auto) 0.300 Neut % (Auto) 62.8 Lymph % (Auto) 24.8 [place] % (Auto) 11.1 H Eos % (Auto) 0.6 Baso % (Auto) 0.4 Absolute Neuts (auto) 5.6 Absolute Lymphs (auto) 2.21 Nucleated RBC % 0 Differential Comment Diff Path Review Specimen Type Sample Site O2 % VBG pH VBG pH (Temp Correct) VBG pCO2 (Temp Corrct VBG pO2 VBG O2 Sat (Calc) VBG O2 Content VBG Base Excess POC Mix VBG pCO2 Pt Tmp Respiration Rate O2 Delivery Device Liter Flow Minute Volume Tidal Volume POC PEEP POC Pressure Suppt EPAP IPAP Blood Gas Notified Whom Blood Gas Notified Time Sodium Potassium Chloride Carbon Dioxide Anion Gap BUN Creatinine Estim Creat Clear Calc Est GFR (MDRD) Af Amer Est GFR (MDRD) Non-Af BUN/Creatinine Ratio Glucose Hemoglobin A1c Lactic Acid Calcium Phosphorus Troponin I Albumin Ur Random Sodium Urine Creatinine Hep Bs Antigen MRSA (PCR) POC Glucose 80 88 08/21/19 08/21/19 04:20 06:11 WBC RBC Hgb Hct MCV MCH MCHC RDW Std Deviation RDW Coeff of Sotero Plt Count MPV Immature Gran % (Auto) Neut % (Auto) Lymph % (Auto) [place] % (Auto) Eos % (Auto) Baso % (Auto) Absolute Neuts (auto) Absolute Lymphs (auto) Nucleated RBC % Differential Comment Diff Path Review Specimen Type Sample Site O2 % VBG pH VBG pH (Temp Correct) VBG pCO2 (Temp Corrct VBG pO2 VBG O2 Sat (Calc) VBG O2 Content VBG Base Excess POC Mix VBG pCO2 Pt Tmp Respiration Rate O2 Delivery Device Liter Flow Minute Volume Tidal Volume POC PEEP POC Pressure Suppt EPAP IPAP Blood Gas Notified Whom Blood Gas Notified Time Sodium 139 Potassium 3.4 L Chloride 102 Carbon Dioxide 31.0 Anion Gap 6 BUN 23 H Creatinine 4.76 H Estim Creat Clear Calc 15.20 Est GFR (MDRD) Af Amer 17 L Est GFR (MDRD) Non-Af 14 L BUN/Creatinine Ratio 4.8 L Glucose 92 Hemoglobin A1c Lactic Acid Calcium 7.5 L Phosphorus Troponin I Albumin Ur Random Sodium Urine Creatinine Hep Bs Antigen MRSA (PCR) POC Glucose 105 Microbiology 08/19/19 07:20 Mucosa - Nasopharyngeal Respiratory Panel (PCR) - Final Clinical Impression(s) from Imaging Studies Abdomen/Pelvis CT 08/18/19 22:42 IMPRESSION: 1. Slitlike IVC suggests the sequela of hypovolemia and dehydration. 2. Hepatic steatosis. 3. Fluid-filled distended stomach suggests possible sequela of gastroparesis. 4. Nonspecific thickening of the wall of the hepatic flexure of the colon may be the result of previous or chronic infection or inflammation. Electronically Signed: Kanwal Morales MD at 0:44 EST , Service support , Chest X-Ray 08/18/19 22:43 IMPRESSION: No acute process Electronically Signed: Elie Davis MD at 23:52 EST , Service support , KUB X-Ray 08/19/19 00:01 IMPRESSION: NGT in adequate position. at 0203 Reported and signed by: Young Smith MD Electronically Signed: Young Smith MD at 2:02 EST Tel , Service support , Chest X-Ray 08/19/19 04:26 IMPRESSION: Inadequate positioning of the large bore right IJ catheter. It enters into the right IJ, and then traverses laterally into the subclavian and axillary veins. It should be repositioned. Chronic interestitial changes. No radiographic evidence of acute cardiopulmonary disease. at 0558 Reported and signed by: Young Smith MD Electronically Signed: Young Smith MD at 5:57 EST Tel , Service support , ADDENDUM: 08/19/19 0612 IMPRESSION: Inadequate positioning of the large bore right IJ catheter. It enters into the right IJ, and then traverses laterally into the subclavian and axillary veins. It should be repositioned. Chronic interestitial changes. No radiographic evidence of acute cardiopulmonary disease. at 0558 Reported and signed by: Young Smith MD N.B. : The above information has been verbally conveyed by Young Smith MD to Ro Huggins RN, on 08/19/2019 06:05:56 (ET). Electronically Signed: Young Smith MD at 5:57 EST Tel , Service support , Renal Ultrasound 08/20/19 16:13 IMPRESSION: Normal bilateral renal ultrasound. Electronically Signed: Oc Manning at 9:10 EST Tel , Service support , Medical Necessity - Tobacco Use Smoking Status: Current every day smoker Tobacco Use: Cigarettes Assessment/Plan All Active Problems (Last Updated 08/19/19 @ 03:[address] Ranjan Rocha MD) Metabolic acidosis (Acute) Gastroparesis (Acute) Lactic acidosis (Acute) UTI (urinary tract infection) (Acute) Acute renal failure (Acute) Septic shock (Acute) Hypoglycemia (Acute) RECOMMENDATIONS: 1. Continue hemodialysis support per nephrology recommendations. 2. Continue empiric antimicrobials. 3. Continue appropriate ICU prophylaxis. 4. Encourage incentive spirometer use while in bed. 5. Tunneled dialysis catheter placement today. Remove temporary hemodialysis catheter. IMPRESSIONS: 1. Septic shock Resolved. Potential urinary source of infection. Plain film chest x-ray did not reveal evidence of a focal infiltrate. The patient will be continued on empiric antimicrobials, pending finalized infectious work-up. He has been successfully weaned from vasopressor support and remains hemodynamically stable for now. 2. Acute kidney injury/hypokalemia/hyperphosphatemia Improving. The patient presented to the hospital with profound kidney injury in the setting of intravascular volume depletion. Nephrology is currently following to assist with hemodialysis needs. There are plans for tunneled dialysis catheter placement today. 3. Significant lactic acidosis Resolved. Likely a combination of both type A and type B lactic acidemia in the setting of septic shock, coupled with the concurrent use of metformin in the setting of decreased renal function. 4. History of tobacco dependency The patient does have a rather extensive smoking history. For now, the patient can be continued on nicotine replacement therapy. I would recommend outpatient pulmonary follow-up so that baseline PFTs can be obtained. Smoking cessation counseling was provided. 5. Diabetes mellitus/hypertension/hyperlipidemia Complicates care, management, recovery and prognosis. Continue to hold home antihypertensives. This note was generated with [employer] software. It may contain incorrect words, spelling, and punctuation that were not noted in checking the note before signing. Code Visit Inpatient E&M: 76135 Subs Hosp L2
--- NOTE | 2019-08-21 08:48 | PCM.PN.SRG ---
Patient Problems: Active and Suspected Problems (Last Updated 08/19/19 @ 03:[address] Ranjan Rocha MD) Metabolic acidosis (Acute) Gastroparesis (Acute) Lactic acidosis (Acute) UTI (urinary tract infection) (Acute) Acute renal failure (Acute) Septic shock (Acute) Hypoglycemia (Acute) Subjective: Patient denies any abdominal pain nausea or vomiting, patient did get dialysis through his right femoral dialysis catheter last evening. - Physical Exam Vitals/I&O's: Vital Signs Temp Pulse Resp BP Pulse Ox 98.2 F 81 11 L 102/74 95 08/21/19 04:00 08/21/19 08:00 08/21/19 08:00 08/21/19 08:00 08/21/19 08:00 Oxygen Delivery Method Room Air Weight: 158 lb 11.725 oz Body Mass Index (BMI) 27.8 Finger Stick Blood Glucose 287 Intake and Output for Last 24 Hours 08/19/19 08/20/19 08/21/19 23:59 23:59 23:59 Intake Total 6543.10 / 6543.10 3100 / 3100 105 / 105 Output Total 2175 / 2175 1550 / 1550 450 / 450 Balance 4368.10 / 4368.10 1550 / 1550 -345 / -345 General: Alert, Oriented x3, Cooperative, No apparent distress HEENT: Atraumatic Cardiovascular: Regular rate Abdomen: Soft, Non Tender, Non-Distended Microbiology Past 72 Hours 08/18/19 23:25 Blood Culture (Wb) - Anticubital Right Blood Culture - Preliminary No growth in 48 hours. 08/18/19 23:20 Blood Culture (Wb) - Left Hand Blood Culture - Preliminary No growth in 48 hours. 08/19/19 07:20 Mucosa - Nasopharyngeal Respiratory Panel (PCR) - Final 08/18/19 23:30 Mucosa - Nasopharyngeal Influenza Types A,B Direct FA (PAULETTE) - Final Laboratory Results 08/18/19 23:58: Specimen Type Cancelled, Sample Site Cancelled, O2 % Cancelled, VBG pH Cancelled, VBG pH (Temp Correct) Cancelled, VBG pCO2 (Temp Corrct Cancelled, VBG pO2 Cancelled, VBG O2 Sat (Calc) Cancelled, VBG O2 Content Cancelled, VBG Base Excess Cancelled, POC Mix VBG pCO2 Pt Tmp Cancelled, Respiration Rate Cancelled, O2 Delivery Device Cancelled, Liter Flow Cancelled, Minute Volume Cancelled, Tidal Volume Cancelled, POC PEEP Cancelled, POC Pressure Suppt Cancelled, EPAP Cancelled, IPAP Cancelled, Blood Gas Notified Whom Cancelled, Blood Gas Notified Time Cancelled 08/19/19 02:45: Diff Path Review Reviewed 08/19/19 06:48: Hep Bs Antigen Non-Reactive 08/20/19 03:30: Diff Path Review Reviewed 08/20/19 11:39: POC Glucose 114 H 08/20/19 19:34: POC Glucose 80 08/21/19 00:08: POC Glucose 88 08/21/19 04:20: WBC 8.9, RBC 3.67 L, Hgb 10.8 L, Hct 32.3 L, MCV 88.0, MCH 29.4, MCHC 33.4, RDW Std Deviation 44.5 H, RDW Coeff of Sotero 13.6, Plt Count 136 L, MPV 10.3, Immature Gran % (Auto) 0.300, Neut % (Auto) 62.8, Lymph % (Auto) 24.8, [place] % (Auto) 11.1 H, Eos % (Auto) 0.6, Baso % (Auto) 0.4, Absolute Neuts (auto) 5.6, Absolute Lymphs (auto) 2.21, Nucleated RBC % 0 08/21/19 04:20: Sodium 139, Potassium 3.4 L, Chloride 102, Carbon Dioxide 31.0, Anion Gap 6, BUN 23 H, Creatinine 4.76 H, Estim Creat Clear Calc 15.20, Est GFR (MDRD) Af Amer 17 L, Est GFR (MDRD) Non-Af 14 L, BUN/Creatinine Ratio 4.8 L, Glucose 92, Calcium 7.5 L 08/21/19 06:11: POC Glucose 105 Current Medications Chlorhexidine Gluconate () 1 each TOPICAL DAILY [facility] Last Admin: 08/20/19 10:10 Dose: 1 each Documented by: Enoxaparin Sodium (Lovenox) 30 mg SC DAILY [facility] Last Admin: 08/21/19 08:37 Dose: Not Given Documented by: Glucagon () 1 mg IM .X1 PRN PRN Reason: Hypoglycemia Heparin Sodium (Porcine) () 10,000 units IV PRN PRN Piperacillin Sod/Tazobactam (Sod 3.375 gm/ Sodium Chloride) 50 mls @ 12.5 mls/hr IV Q12 [facility] Last Infusion: 08/21/19 01:35 Dose: Infused Documented by: Dextrose (Dextrose 10%-Water) 250 mls @ 999 mls/hr IV .Q16M PRN; Protocol PRN Reason: HYPOGLYCEMIA Last Infusion: 08/19/19 14:52 Dose: Infused Documented by: Sodium Chloride () 250 mls @ 15 mls/hr IV .[id number] PRN PRN Reason: Saline Flush Sodium Chloride () 250 mls @ 15 mls/hr IV .[id number] PRN PRN Reason: Additional IVPB Infusion Pantoprazole Sodium 40 mg/ (Sodium Chloride) 110 mls @ 330 mls/hr IV Q12 [facility]TAZ[facility] Last Infusion: 08/20/19 21:20 Dose: Infused Documented by: Insulin Human Lispro (Humalog Kwikpen (Bkc)) 0 unit SC Q6 [facility]TAZAR; Protocol Last Admin: 08/21/19 06:23 Dose: Not Given Documented by: Nicotine (Nicoderm Cq (Pbkc)) 14 mg TRANSDERM. DAILY [facility] Last Admin: 08/21/19 08:37 Dose: Not Given Documented by: Ondansetron HCl (Zofran) 4 mg IV Q6H PRN PRN PRN Reason: NAUSEA/VOMITING Prochlorperazine Edisylate (Compazine Iv) 5 mg IV Q4H PRN PRN PRN Reason: Breakthrough Nausea/Vomiting Sodium Chloride () 10 - 40 ml IV UD PRN PRN Reason: SALINE FLUSH Last Admin: 08/20/19 21:33 Dose: 10 ml Documented by: Medical Necessity - Tobacco Use Smoking Status: Current every day smoker Tobacco Use: Cigarettes Assessment/Plan All Active Problems (Last Updated 08/19/19 @ 03:[address] Ranjan Rocha MD) Metabolic acidosis (Acute) Gastroparesis (Acute) Lactic acidosis (Acute) UTI (urinary tract infection) (Acute) Acute renal failure (Acute) Septic shock (Acute) Hypoglycemia (Acute) 54-year-old male with septic shock, acute kidney injury need for emergent dialysis Plan for tunneled dialysis catheter today about 1230 --again discussed procedure including risks with the patient he was agreeable to proceed and no further questions at this time. Plan to remove the right femoral dialysis catheter this morning. Masha Hernandez M.D. Pager: [phone] [facility] [address] [place] [address], [facility], [address] [place] [id number] Office: [phone] Code Visit Inpatient E&M: 90363 Subs Hosp L1
[2019-08-21] MEDS: 0.9% Saline Lock 10 ML Syringe IV ×2 (10:43→21:50)
[2019-08-21 12:06] LABS: Bedside Glucose 104 mg/dL (70-110)
--- NOTE | 2019-08-21 12:08 | PCM.PN.REN ---
Patient Problems: Active and Suspected Problems (Last Updated 08/19/19 @ 03:[address] Ranjan Rocha MD) Metabolic acidosis (Acute) Gastroparesis (Acute) Lactic acidosis (Acute) UTI (urinary tract infection) (Acute) Acute renal failure (Acute) Septic shock (Acute) Hypoglycemia (Acute) Subjective: no new complaints - Physical Exam Vitals/I&O's: Vital Signs Temp Pulse Resp BP Pulse Ox 98.2 F 80 15 111/80 98 08/21/19 04:00 08/21/19 09:00 08/21/19 09:00 08/21/19 09:00 08/21/19 09:00 Oxygen Delivery Method Room Air Weight: 72 kg Body Mass Index (BMI) 27.8 Finger Stick Blood Glucose 287 Intake and Output for Last 24 Hours 08/19/19 08/20/19 08/21/19 23:59 23:59 23:59 Intake Total 6543.10 / 6543.10 3100 / 3100 105 / 105 Output Total 2175 / 2175 1550 / 1550 1200 / 1200 Balance 4368.10 / 4368.10 1550 / 1550 -1095 / -1095 General: Alert, Oriented x3, Cooperative HEENT: Atraumatic, PERRLA, EOMI, Normocephalic Neck: Supple, No JVD, Negative Carotid Bruits Lungs: Clear to auscultation, Normal air movement Cardiovascular: Regular rate, No murmurs Abdomen: Bowel Sounds Present, Soft, Non Tender Extremities: No edema, Capillary Refill Less than 3 Seconds Skin: No rashes, No breakdown Musculoskeletal: No Tenderness to Palpation of Joints or Extremities Neurological: Cranial nerves II-XII grossly intact Psych/Mental Status: Normal Affect, Appropriate Microbiology Past 72 Hours 08/18/19 23:36 Urine Catheter - Perez Urine Culture - Final Culture exhibits no growth. 08/18/19 23:25 Blood Culture (Wb) - Anticubital Right Blood Culture - Preliminary No growth in 48 hours. 08/18/19 23:20 Blood Culture (Wb) - Left Hand Blood Culture - Preliminary No growth in 48 hours. 08/19/19 07:20 Mucosa - Nasopharyngeal Respiratory Panel (PCR) - Final 08/18/19 23:30 Mucosa - Nasopharyngeal Influenza Types A,B Direct FA (PAULETTE) - Final Laboratory Results 08/18/19 23:58: Specimen Type Cancelled, Sample Site Cancelled, O2 % Cancelled, VBG pH Cancelled, VBG pH (Temp Correct) Cancelled, VBG pCO2 (Temp Corrct Cancelled, VBG pO2 Cancelled, VBG O2 Sat (Calc) Cancelled, VBG O2 Content Cancelled, VBG Base Excess Cancelled, POC Mix VBG pCO2 Pt Tmp Cancelled, Respiration Rate Cancelled, O2 Delivery Device Cancelled, Liter Flow Cancelled, Minute Volume Cancelled, Tidal Volume Cancelled, POC PEEP Cancelled, POC Pressure Suppt Cancelled, EPAP Cancelled, IPAP Cancelled, Blood Gas Notified Whom Cancelled, Blood Gas Notified Time Cancelled 08/19/19 02:45: Diff Path Review Reviewed 08/20/19 03:30: Diff Path Review Reviewed 08/20/19 19:34: POC Glucose 80 08/21/19 00:08: POC Glucose 88 08/21/19 04:20: WBC 8.9, RBC 3.67 L, Hgb 10.8 L, Hct 32.3 L, MCV 88.0, MCH 29.4, MCHC 33.4, RDW Std Deviation 44.5 H, RDW Coeff of Sotero 13.6, Plt Count 136 L, MPV 10.3, Immature Gran % (Auto) 0.300, Neut % (Auto) 62.8, Lymph % (Auto) 24.8, [place] % (Auto) 11.1 H, Eos % (Auto) 0.6, Baso % (Auto) 0.4, Absolute Neuts (auto) 5.6, Absolute Lymphs (auto) 2.21, Nucleated RBC % 0 08/21/19 04:20: Sodium 139, Potassium 3.4 L, Chloride 102, Carbon Dioxide 31.0, Anion Gap 6, BUN 23 H, Creatinine 4.76 H, Estim Creat Clear Calc 15.20, Est GFR (MDRD) Af Amer 17 L, Est GFR (MDRD) Non-Af 14 L, BUN/Creatinine Ratio 4.8 L, Glucose 92, Calcium 7.5 L 08/21/19 06:11: POC Glucose 105 08/21/19 11:58: POC Glucose 104 Current Medications Chlorhexidine Gluconate () 1 each TOPICAL DAILY BALTAZAR Last Admin: 08/20/19 10:10 Dose: 1 each Documented by: Enoxaparin Sodium (Lovenox) 30 mg SC DAILY BALTAZAR Last Admin: 08/21/19 08:37 Dose: Not Given Documented by: Glucagon () 1 mg IM .X1 PRN PRN Reason: Hypoglycemia Heparin Sodium (Porcine) () 10,000 units IV PRN PRN Piperacillin Sod/Tazobactam (Sod 3.375 gm/ Sodium Chloride) 50 mls @ 12.5 mls/hr IV Q12 BALTAZAR Last Admin: 08/21/19 10:43 Dose: 12.5 mls/hr Documented by: Dextrose (Dextrose 10%-Water) 250 mls @ 999 mls/hr IV .Q16M PRN; Protocol PRN Reason: HYPOGLYCEMIA Last Infusion: 08/19/19 14:52 Dose: Infused Documented by: Sodium Chloride () 250 mls @ 15 mls/hr IV .[id number] PRN PRN Reason: Saline Flush Sodium Chloride () 250 mls @ 15 mls/hr IV .[id number] PRN PRN Reason: Additional IVPB Infusion Pantoprazole Sodium 40 mg/ (Sodium Chloride) 110 mls @ 330 mls/hr IV Q12 BALTAZAR Last Admin: 08/21/19 10:41 Dose: 330 mls/hr Documented by: Insulin Human Lispro (Humalog Kwikpen (Bkc)) 0 unit SC Q6 BALTAZAR; Protocol Last Admin: 08/21/19 06:23 Dose: Not Given Documented by: Nicotine (Nicoderm Cq (Pbkc)) 14 mg TRANSDERM. DAILY BALTAZAR Last Admin: 08/21/19 08:37 Dose: Not Given Documented by: Ondansetron HCl (Zofran) 4 mg IV Q6H PRN PRN PRN Reason: NAUSEA/VOMITING Prochlorperazine Edisylate (Compazine Iv) 5 mg IV Q4H PRN PRN PRN Reason: Breakthrough Nausea/Vomiting Sodium Chloride () 10 - 40 ml IV UD PRN PRN Reason: SALINE FLUSH Last Admin: 08/21/19 10:43 Dose: 20 ml Documented by: Medical Necessity - Tobacco Use Smoking Status: Current every day smoker Tobacco Use: Cigarettes Assessment/Plan All Active Problems (Last Updated 08/19/19 @ 03:[address] Ranjan Rocha MD) Metabolic acidosis (Acute) Gastroparesis (Acute) Lactic acidosis (Acute) UTI (urinary tract infection) (Acute) Acute renal failure (Acute) Septic shock (Acute) Hypoglycemia (Acute) Acute renal failure Severe lactic acidosis Septic shock, likely urinary origin, clinically better Presented with severe renal failure. S/p dialysis. Urine output is somewhat better. Will plan for dialysis tomorrow. He has a right femoral dialysis catheter for access. Ideally this should not stay in for too long. Blood cultures negative. for neck line today Lactic acidosis. Combination of type a and type B. Levels have come down Hypokalemia. better
[2019-08-21] MEDS: Bupiv/Epi 0.25% 30 ML Vial (13:03)
[2019-08-21] MEDS: Heparin 10,000 UNITS/10 ML Vial 10000 UNITS (13:04)
--- NOTE | 2019-08-21 13:12 | PCM.OPRPT ---
Report of Operation Date of Procedure: 08/21/19 Pre-Operative Diagnosis: Acute renal failure Post-Operative Diagnosis: Same Surgery/Procedure Performed:: Insertion of right IJ tunneled dialysis catheter Type of Anesthesia:: Local MAC Anesthesiologist: Derian Bazzi Special Medications: Patient is on Zosyn 3.375 g IV every 8 hours on the floor Specimen's removed: None Estimated Blood Loss (mL): < 10 cc Fluids Replaced: 50 cc Description of Procedure: After informed consent was given, the patient was brought to the operating room and placed in the supine position. Appropriate time out protocol was followed. He was then given IV moderate sedation for anesthesia. The patient's lateral upper chest and neck were then prepped with a surgical skin preparation and sterile surgical drapes were placed. After proper landmarks were ascertained, the skin at the upper right chest area was then infiltrated with 1:1 mixture of 1% lidocaine with epinephrine and 0.5% maricaine. A needle trocar was then inserted into the right internal jugular vein with ultrasound guidance-multiple vessels were viewed with u/s and the right IJ was chosen-- and there was good aspiration of venous blood. A wire was then threaded into the needle trocar and this was visualized under fluoroscopy to ensure that the wire was in the superior vena cava. Once this was done, then the needle trocar was removed. A small incision was made with an 11 blade knife at the wire entrance site. The dilator x2 with the introducer sheath attached was then placed over the wire into the right internal jugular vein via the Seldinger technique and this was visualized under fluoroscopy. Next the introducer and sheath were in proper position as visualized by fluoroscopy. The location of the cuffed was estimated on the skin, an incision was made with a 15 blade scalpel. The 14.5 Fr x 19 cm Palindrome dual lumen (Lot [id number] reference [id number]) was tunneled from the chest incision to the right neck incision. The sheath was removed. The catheter was placed through the introducer and was positioned with its tip at the junction of the superior vena cava and the right atrium as visualized under fluoroscopy. The cuff of the catheter was in the subcutaneous tissue. The catheter flushed and elvia well with saline. Catheter was also flushed with 1.6 cc of 1-10,000 of heparin. Hemostasis was assured. Silver dressing was placed at the catheter exit site. Catheter was sutured with 3-0 nylon sutures. The neck incision was sutured with interrupted 3-0 Vicryl interrupted sutures x2 and Steri-Strips were placed. A large OpSite was placed over the catheter site and a small OpSite over the neck incision. The patient tolerated the procedure well. Implants Used:14.5 Fr x 19 cm Palindrome dual lumen (Lot [id number] reference [id number]) Grafts/Implants Used: 14.5 Fr x 19 cm Palindrome dual lumen (Lot [id number] reference [id number] - Complications none
--- NOTE | 2019-08-21 13:25 | RAD_ITS ---
EXAM DESCRIPTION: PORTABLE AP CHEST CLINICAL HISTORY: 54 years Male, DAILYSIS CATHETER PLACEMENT. DAILYSIS CATHETER PLACEMENT. COMPARISON: Previous chest obtained on 08/19/2019 FINDINGS: A right-sided dialysis catheter is noted in place in good position. The rest of the thorax is intact. The heart and mediastinum appear to be within normal limits. The lungs appear to be well areated without evidence of pneumonic consolidation or pleural effusion. RAD/CXR for Line Placement IMPRESSION: A right dialysis catheter is noted in place in good position, in this otherwise normal chest x-ray Electronically Signed: Oc Manning, at 15:07 EST Tel , Service support ,
[2019-08-21 14:30] LABS: Bedside Glucose 109 mg/dL (70-110)
--- NOTE | 2019-08-21 15:30 | CASEMGMT ---
RN CM Note: Hemodialysis continued today. No referral for OP Hemodialysis yet. Hep panel drawn, results pending. Pt had Tunnel Cath placed today. Order for Tele status and PCU transfer when bed is available. DC PLAN: Anticipate Home on discharge. CM to continue to follow for possible need for OP hemodialysis. Terrie GUTIERREZN RN ACM
[2019-08-21 16:59] LABS: Hepatitis B Core Ab Total Negative (Negative)
[2019-08-21 18:46] LABS: Bedside Glucose 113 mg/dL (70-110)
--- NOTE | 2019-08-21 19:17 | PCM.PROGNOTE ---
Patient Problems: Active and Suspected Problems (Last Updated 08/19/19 @ 03:[address] Ranjan Rocha MD) Metabolic acidosis (Acute) Gastroparesis (Acute) Lactic acidosis (Acute) UTI (urinary tract infection) (Acute) Acute renal failure (Acute) Septic shock (Acute) Hypoglycemia (Acute) Subjective: Patient was seen and examined in the ICU today, he went down this afternoon for insertion of a tunneled dialysis catheter. Patient's creatinine was improved today. Patient has no complaints of any chest pain or shortness of breath - Physical Exam Vitals/I&O's: Vital Signs Temp Pulse Resp BP Pulse Ox 98.1 F 84 18 114/81 H 97 08/21/19 18:15 08/21/19 18:15 08/21/19 18:15 08/21/19 18:15 08/21/19 18:15 Oxygen Delivery Method Room Air Weight: 72 kg Body Mass Index (BMI) 27.8 Finger Stick Blood Glucose 287 Intake and Output for Last 24 Hours 08/19/19 08/20/19 08/21/19 23:59 23:59 23:59 Intake Total 6543.10 / 6543.10 3100 / 3100 585 / 585 Output Total 2175 / 2175 1550 / 1550 1800 / 1800 Balance 4368.10 / 4368.10 1550 / 1550 -1215 / -1215 General: Alert, Oriented x3, Cooperative, No apparent distress, Well developed HEENT: Atraumatic, PERRLA, EOMI, Normocephalic Oral: Moist Mucosa Neck: Supple, No JVD, Trachea Midline, Thyroid Normal Size and Texture Lungs: Clear to auscultation, Normal air movement, No rhonchi, No wheeze, No rales Cardiovascular: Regular rate, Regular Rhythm, Normal S1, Normal S2, No murmurs, PMI Normal, No rub noted Abdomen: Bowel Sounds Present, Soft, Non Tender, Non-Distended Extremities: No clubbing, No cyanosis, No edema, Capillary Refill Less than 3 Seconds Skin: No rashes, No breakdown Musculoskeletal: No Tenderness to Palpation of Joints or Extremities Neurological: Cranial nerves II-XII grossly intact, Neuro grossly intact, Sensory exam intact to light touch and pain, Coordination normal Psych/Mental Status: Normal Affect, Appropriate Microbiology Past 72 Hours 08/18/19 23:36 Urine Catheter - Perez Urine Culture - Final Culture exhibits no growth. 08/18/19 23:25 Blood Culture (Wb) - Anticubital Right Blood Culture - Preliminary No growth in 48 hours. 08/18/19 23:20 Blood Culture (Wb) - Left Hand Blood Culture - Preliminary No growth in 48 hours. 08/19/19 07:20 Mucosa - Nasopharyngeal Respiratory Panel (PCR) - Final 08/18/19 23:30 Mucosa - Nasopharyngeal Influenza Types A,B Direct FA (PAULETTE) - Final Laboratory Results 08/19/19 06:48: Hep B Core Total Ab Negative 08/20/19 19:34: POC Glucose 80 08/21/19 00:08: POC Glucose 88 08/21/19 04:20: WBC 8.9, RBC 3.67 L, Hgb 10.8 L, Hct 32.3 L, MCV 88.0, MCH 29.4, MCHC 33.4, RDW Std Deviation 44.5 H, RDW Coeff of Sotero 13.6, Plt Count 136 L, MPV 10.3, Immature Gran % (Auto) 0.300, Neut % (Auto) 62.8, Lymph % (Auto) 24.8, [place] % (Auto) 11.1 H, Eos % (Auto) 0.6, Baso % (Auto) 0.4, Absolute Neuts (auto) 5.6, Absolute Lymphs (auto) 2.21, Nucleated RBC % 0 08/21/19 04:20: Sodium 139, Potassium 3.4 L, Chloride 102, Carbon Dioxide 31.0, Anion Gap 6, BUN 23 H, Creatinine 4.76 H, Estim Creat Clear Calc 15.20, Est GFR (MDRD) Af Amer 17 L, Est GFR (MDRD) Non-Af 14 L, BUN/Creatinine Ratio 4.8 L, Glucose 92, Calcium 7.5 L 08/21/19 06:11: POC Glucose 105 08/21/19 11:58: POC Glucose 104 08/21/19 14:25: POC Glucose 109 08/21/19 18:37: POC Glucose 113 H Current Medications Chlorhexidine Gluconate () 1 each TOPICAL DAILY BALTAZAR Last Admin: 08/21/19 14:26 Dose: Not Given Documented by: Glucagon () 1 mg IM .X1 PRN PRN Reason: Hypoglycemia Heparin Sodium (Porcine) () 10,000 units IV PRN PRN Heparin Sodium (Porcine) (Heparin Na) 5,000 unit SC Q12 BALTAZAR Piperacillin Sod/Tazobactam (Sod 3.375 gm/ Sodium Chloride) 50 mls @ 12.5 mls/hr IV Q12 BALTAZAR Last Infusion: 08/21/19 15:00 Dose: Infused Documented by: Dextrose (Dextrose 10%-Water) 250 mls @ 999 mls/hr IV .Q16M PRN; Protocol PRN Reason: HYPOGLYCEMIA Last Infusion: 08/19/19 14:52 Dose: Infused Documented by: Sodium Chloride () 250 mls @ 15 mls/hr IV .[id number] PRN PRN Reason: Saline Flush Sodium Chloride () 250 mls @ 15 mls/hr IV .[id number] PRN PRN Reason: Additional IVPB Infusion Pantoprazole Sodium 40 mg/ (Sodium Chloride) 110 mls @ 330 mls/hr IV Q12 BALTAZAR Last Infusion: 08/21/19 11:40 Dose: Infused Documented by: Insulin Human Lispro (Humalog Kwikpen (Bkc)) 0 unit SC ACHS [facility]; Protocol Nicotine (Nicoderm Cq (Pbkc)) 14 mg TRANSDERM. DAILY BALTAZAR Last Admin: 08/21/19 08:37 Dose: Not Given Documented by: Ondansetron HCl (Zofran) 4 mg IV Q6H PRN PRN PRN Reason: NAUSEA/VOMITING Prochlorperazine Edisylate (Compazine Iv) 5 mg IV Q4H PRN PRN PRN Reason: Breakthrough Nausea/Vomiting Sodium Chloride () 10 - 40 ml IV UD PRN PRN Reason: SALINE FLUSH Last Admin: 08/21/19 10:43 Dose: 20 ml Documented by: Medical Necessity - Tobacco Use Smoking Status: Current every day smoker Tobacco Use: Cigarettes Assessment/Plan All Active Problems (Last Updated 08/19/19 @ 03:[address] Ranjan Rocha MD) Metabolic acidosis (Acute) Gastroparesis (Acute) Lactic acidosis (Acute) UTI (urinary tract infection) (Acute) Acute renal failure (Acute) Septic shock (Acute) Hypoglycemia (Acute) #1 septic shock-probably secondary to acute urinary tract infection, continue IV antibiotics-final urine culture however results in no growth. #2 acute kidney injury with acute kidney failure-nephrology is participating in his care #3 type 2 diabetes-monitor blood sugars #4 acute urinary tract infection-organism unknown at this time, continue present antibiotic coverage #5 essential hypertension Code Visit Inpatient E&M: 53225 Subs Hosp L2
[2019-08-21] MEDS: Heparin Injection (Vial) 5,000 UNIT/ML VIAL 5000 UNIT SC (21:38)
[2019-08-21 23:00] LABS: Bedside Glucose 110 mg/dL (70-110)
[2019-08-22] VITALS (12 sets, daily range): BP systolic 104–159; BP diastolic 80–90; PULSE 77–96; RESP 14–20; TEMP 36.6–37.2; O2SAT 95–99
[2019-08-22 06:35] LABS: Bedside Glucose 113 mg/dL (70-110)
--- NOTE | 2019-08-22 09:53 | PCM.PN.PUL ---
Patient Problems: Active and Suspected Problems (Last Updated 08/19/19 @ 03:[address] Ranjan Rocha MD) Metabolic acidosis (Acute) Gastroparesis (Acute) Lactic acidosis (Acute) UTI (urinary tract infection) (Acute) Acute renal failure (Acute) Septic shock (Acute) Hypoglycemia (Acute) Subjective: The patient was seen and examined at the bedside this morning. Events from the last 24 hours have been reviewed. The patient is currently afebrile, hemodynamically stable and maintaining appropriate oxygen saturations on room air. The patient underwent successful tunneled dialysis catheter placement yesterday. Objective: The patient's most recent lab work, culture data and imaging studies have all been personally reviewed. Infectious work-up has been negative to date. - Physical Exam Vitals/I&O's: Vital Signs Temp Pulse Resp BP Pulse Ox 97.9 F 89 16 159/90 H 97 08/22/19 07:56 08/22/19 07:56 08/22/19 07:56 08/22/19 07:56 08/22/19 07:56 Oxygen Delivery Method Room Air Weight: 163 lb 5.8 oz Body Mass Index (BMI) 27.8 Finger Stick Blood Glucose 287 Intake and Output for Last 24 Hours 08/20/19 08/21/19 08/22/19 23:59 23:59 23:59 Intake Total 3100 / 3100 1109.38 / 1109.38 235.62 / 235.62 Output Total 1550 / 1550 2225 / 2225 425 / 425 Balance 1550 / 1550 -1115.62 / -1115.62 -189.38 / -189.38 General: Alert, Cooperative, No apparent distress HEENT: Atraumatic, Normocephalic Oral: No Gingival or Mucosal Lesions/ Ulcerations Neck: Supple, No Nodes, Trachea Midline Lungs: No rhonchi, No wheeze, No rales, Diminished Cardiovascular: Regular rate, Regular Rhythm, Normal S1, Normal S2, No murmurs Abdomen: Bowel Sounds Present, Soft, Non Tender Extremities: No clubbing, No cyanosis Skin: No breakdown Musculoskeletal: No Tenderness to Palpation of Joints or Extremities Lymphatic: No Cervical, Supraclavicular, or Inguinal Adenopathy Neurological: Cranial nerves II-XII grossly intact, Neuro grossly intact Psych/Mental Status: Alert and oriented to time, place, person, mood and affect Labs (Last 48 Hours) 08/18/19 08/19/19 08/19/19 23:58 02:45 06:48 WBC RBC Hgb Hct MCV MCH MCHC RDW Std Deviation RDW Coeff of Sotero Plt Count MPV Immature Gran % (Auto) Neut % (Auto) Lymph % (Auto) Beaver % (Auto) Eos % (Auto) Baso % (Auto) Absolute Neuts (auto) Absolute Lymphs (auto) Nucleated RBC % Diff Path Review Reviewed Specimen Type Cancelled Sample Site Cancelled O2 % Cancelled VBG pH Cancelled VBG pH (Temp Correct) Cancelled VBG pCO2 (Temp Corrct Cancelled VBG pO2 Cancelled VBG O2 Sat (Calc) Cancelled VBG O2 Content Cancelled VBG Base Excess Cancelled POC Mix VBG pCO2 Pt Tmp Cancelled Respiration Rate Cancelled O2 Delivery Device Cancelled Liter Flow Cancelled Minute Volume Cancelled Tidal Volume Cancelled POC PEEP Cancelled POC Pressure Suppt Cancelled EPAP Cancelled IPAP Cancelled Blood Gas Notified Whom Cancelled Blood Gas Notified Time Cancelled Sodium Potassium Chloride Carbon Dioxide Anion Gap BUN Creatinine Estim Creat Clear Calc Est GFR (MDRD) Af Amer Est GFR (MDRD) Non-Af BUN/Creatinine Ratio Glucose Calcium Hep B Core Total Ab Negative POC Glucose 08/20/19 08/20/19 08/20/19 03:30 11:39 19:34 WBC RBC Hgb Hct MCV MCH MCHC RDW Std Deviation RDW Coeff of Sotero Plt Count MPV Immature Gran % (Auto) Neut % (Auto) Lymph % (Auto) Beaver % (Auto) Eos % (Auto) Baso % (Auto) Absolute Neuts (auto) Absolute Lymphs (auto) Nucleated RBC % Diff Path Review Reviewed Specimen Type Sample Site O2 % VBG pH VBG pH (Temp Correct) VBG pCO2 (Temp Corrct VBG pO2 VBG O2 Sat (Calc) VBG O2 Content VBG Base Excess POC Mix VBG pCO2 Pt Tmp Respiration Rate O2 Delivery Device Liter Flow Minute Volume Tidal Volume POC PEEP POC Pressure Suppt EPAP IPAP Blood Gas Notified Whom Blood Gas Notified Time Sodium Potassium Chloride Carbon Dioxide Anion Gap BUN Creatinine Estim Creat Clear Calc Est GFR (MDRD) Af Amer Est GFR (MDRD) Non-Af BUN/Creatinine Ratio Glucose Calcium Hep B Core Total Ab POC Glucose 114 H 80 08/21/19 08/21/19 08/21/19 00:08 04:20 04:20 WBC 8.9 RBC 3.67 L Hgb 10.8 L Hct 32.3 L MCV 88.0 MCH 29.4 MCHC 33.4 RDW Std Deviation 44.5 H RDW Coeff of Sotero 13.6 Plt Count 136 L MPV 10.3 Immature Gran % (Auto) 0.300 Neut % (Auto) 62.8 Lymph % (Auto) 24.8 Beaver % (Auto) 11.1 H Eos % (Auto) 0.6 Baso % (Auto) 0.4 Absolute Neuts (auto) 5.6 Absolute Lymphs (auto) 2.21 Nucleated RBC % 0 Diff Path Review Specimen Type Sample Site O2 % VBG pH VBG pH (Temp Correct) VBG pCO2 (Temp Corrct VBG pO2 VBG O2 Sat (Calc) VBG O2 Content VBG Base Excess POC Mix VBG pCO2 Pt Tmp Respiration Rate O2 Delivery Device Liter Flow Minute Volume Tidal Volume POC PEEP POC Pressure Suppt EPAP IPAP Blood Gas Notified Whom Blood Gas Notified Time Sodium 139 Potassium 3.4 L Chloride 102 Carbon Dioxide 31.0 Anion Gap 6 BUN 23 H Creatinine 4.76 H Estim Creat Clear Calc 15.20 Est GFR (MDRD) Af Amer 17 L Est GFR (MDRD) Non-Af 14 L BUN/Creatinine Ratio 4.8 L Glucose 92 Calcium 7.5 L Hep B Core Total Ab POC Glucose 88 08/21/19 08/21/19 08/21/19 06:11 11:58 14:25 WBC RBC Hgb Hct MCV MCH MCHC RDW Std Deviation RDW Coeff of Sotero Plt Count MPV Immature Gran % (Auto) Neut % (Auto) Lymph % (Auto) Beaver % (Auto) Eos % (Auto) Baso % (Auto) Absolute Neuts (auto) Absolute Lymphs (auto) Nucleated RBC % Diff Path Review Specimen Type Sample Site O2 % VBG pH VBG pH (Temp Correct) VBG pCO2 (Temp Corrct VBG pO2 VBG O2 Sat (Calc) VBG O2 Content VBG Base Excess POC Mix VBG pCO2 Pt Tmp Respiration Rate O2 Delivery Device Liter Flow Minute Volume Tidal Volume POC PEEP POC Pressure Suppt EPAP IPAP Blood Gas Notified Whom Blood Gas Notified Time Sodium Potassium Chloride Carbon Dioxide Anion Gap BUN Creatinine Estim Creat Clear Calc Est GFR (MDRD) Af Amer Est GFR (MDRD) Non-Af BUN/Creatinine Ratio Glucose Calcium Hep B Core Total Ab POC Glucose 105 104 109 08/21/19 08/21/19 08/22/19 18:37 21:35 06:31 WBC RBC Hgb Hct MCV MCH MCHC RDW Std Deviation RDW Coeff of Sotero Plt Count MPV Immature Gran % (Auto) Neut % (Auto) Lymph % (Auto) Beaver % (Auto) Eos % (Auto) Baso % (Auto) Absolute Neuts (auto) Absolute Lymphs (auto) Nucleated RBC % Diff Path Review Specimen Type Sample Site O2 % VBG pH VBG pH (Temp Correct) VBG pCO2 (Temp Corrct VBG pO2 VBG O2 Sat (Calc) VBG O2 Content VBG Base Excess POC Mix VBG pCO2 Pt Tmp Respiration Rate O2 Delivery Device Liter Flow Minute Volume Tidal Volume POC PEEP POC Pressure Suppt EPAP IPAP Blood Gas Notified Whom Blood Gas Notified Time Sodium Potassium Chloride Carbon Dioxide Anion Gap BUN Creatinine Estim Creat Clear Calc Est GFR (MDRD) Af Amer Est GFR (MDRD) Non-Af BUN/Creatinine Ratio Glucose Calcium Hep B Core Total Ab POC Glucose 113 H 110 113 H 08/22/19 09:05 WBC RBC Hgb Hct MCV MCH MCHC RDW Std Deviation RDW Coeff of Sotero Plt Count MPV Immature Gran % (Auto) Neut % (Auto) Lymph % (Auto) Beaver % (Auto) Eos % (Auto) Baso % (Auto) Absolute Neuts (auto) Absolute Lymphs (auto) Nucleated RBC % Diff Path Review Specimen Type Sample Site O2 % VBG pH VBG pH (Temp Correct) VBG pCO2 (Temp Corrct VBG pO2 VBG O2 Sat (Calc) VBG O2 Content VBG Base Excess POC Mix VBG pCO2 Pt Tmp Respiration Rate O2 Delivery Device Liter Flow Minute Volume Tidal Volume POC PEEP POC Pressure Suppt EPAP IPAP Blood Gas Notified Whom Blood Gas Notified Time Sodium Pending Potassium Pending Chloride Pending Carbon Dioxide Pending Anion Gap Pending BUN Pending Creatinine Pending Estim Creat Clear Calc Est GFR (MDRD) Af Amer Pending Est GFR (MDRD) Non-Af Pending BUN/Creatinine Ratio Pending Glucose Pending Calcium Pending Hep B Core Total Ab POC Glucose Microbiology 08/18/19 23:36 Urine Catheter - Perez Urine Culture - Final Culture exhibits no growth. 08/18/19 23:25 Blood Culture (Wb) - Anticubital Right Blood Culture - Preliminary No growth in 48 hours. 08/18/19 23:20 Blood Culture (Wb) - Left Hand Blood Culture - Preliminary No growth in 48 hours. Clinical Impression(s) from Imaging Studies Abdomen/Pelvis CT 08/18/19 22:42 IMPRESSION: 1. Slitlike IVC suggests the sequela of hypovolemia and dehydration. 2. Hepatic steatosis. 3. Fluid-filled distended stomach suggests possible sequela of gastroparesis. 4. Nonspecific thickening of the wall of the hepatic flexure of the colon may be the result of previous or chronic infection or inflammation. Electronically Signed: Kanwal Morales MD at 0:44 EST , Service support , Chest X-Ray 08/18/19 22:43 IMPRESSION: No acute process Electronically Signed: Elie Davis MD at 23:52 EST , Service support , KUB X-Ray 08/19/19 00:01 IMPRESSION: NGT in adequate position. at 0203 Reported and signed by: Young Smith MD Electronically Signed: Young Smith MD at 2:02 EST Tel , Service support , Chest X-Ray 08/19/19 04:26 IMPRESSION: Inadequate positioning of the large bore right IJ catheter. It enters into the right IJ, and then traverses laterally into the subclavian and axillary veins. It should be repositioned. Chronic interestitial changes. No radiographic evidence of acute cardiopulmonary disease. at 0558 Reported and signed by: Young Smith MD Electronically Signed: Young Smith MD at 5:57 EST Tel , Service support , ADDENDUM: 08/19/19 0612 IMPRESSION: Inadequate positioning of the large bore right IJ catheter. It enters into the right IJ, and then traverses laterally into the subclavian and axillary veins. It should be repositioned. Chronic interestitial changes. No radiographic evidence of acute cardiopulmonary disease. at 0558 Reported and signed by: Young Smith MD N.B. : The above information has been verbally conveyed by Young Smith MD to Ro Huggins RN, on 08/19/2019 06:05:56 (ET). Electronically Signed: Young Smith MD at 5:57 EST Tel , Service support , Renal Ultrasound 08/20/19 16:13 IMPRESSION: Normal bilateral renal ultrasound. Electronically Signed: Oc Manning at 9:10 EST Tel , Service support , Chest X-Ray 08/21/19 13:25 IMPRESSION: A right dialysis catheter is noted in place in good position, in this otherwise normal chest x-ray Electronically Signed: Oc Manning at 15:07 EST Tel , Service support , Current Medications Chlorhexidine Gluconate () 1 each TOPICAL DAILY [facility] Last Admin: 08/21/19 14:26 Dose: Not Given Documented by: Glucagon () 1 mg IM .X1 PRN PRN Reason: Hypoglycemia Heparin Sodium (Porcine) () 10,000 units IV PRN PRN Heparin Sodium (Porcine) (Heparin Na) 5,000 unit SC Q12 [facility] Last Admin: 08/21/19 21:38 Dose: 5,000 unit Documented by: Piperacillin Sod/Tazobactam (Sod 3.375 gm/ Sodium Chloride) 50 mls @ 12.5 mls/hr IV Q12 [facility] Last Infusion: 08/22/19 02:50 Dose: Infused Documented by: Dextrose (Dextrose 10%-Water) 250 mls @ 999 mls/hr IV .Q16M PRN; Protocol PRN Reason: HYPOGLYCEMIA Last Infusion: 08/19/19 14:52 Dose: Infused Documented by: Sodium Chloride () 250 mls @ 15 mls/hr IV .[id number] PRN PRN Reason: Saline Flush Sodium Chloride () 250 mls @ 15 mls/hr IV .[id number] PRN PRN Reason: Additional IVPB Infusion Pantoprazole Sodium 40 mg/ (Sodium Chloride) 110 mls @ 330 mls/hr IV Q12 [facility] Last Infusion: 08/21/19 22:00 Dose: Infused Documented by: Insulin Human Lispro (Humalog Kwikpen (Bkc)) 0 unit SC ACHS [facility]; Protocol Last Admin: 08/22/19 07:11 Dose: Not Given Documented by: Nicotine (Nicoderm Cq (Pbkc)) 14 mg TRANSDERM. DAILY [facility] Last Admin: 08/21/19 08:37 Dose: Not Given Documented by: Ondansetron HCl (Zofran) 4 mg IV Q6H PRN PRN PRN Reason: NAUSEA/VOMITING Prochlorperazine Edisylate (Compazine Iv) 5 mg IV Q4H PRN PRN PRN Reason: Breakthrough Nausea/Vomiting Sodium Chloride () 10 - 40 ml IV UD PRN PRN Reason: SALINE FLUSH Last Admin: 08/21/19 21:50 Dose: 20 ml Documented by: Medical Necessity - Tobacco Use Smoking Status: Current every day smoker Tobacco Use: Cigarettes Assessment/Plan All Active Problems (Last Updated 08/19/19 @ 03:[address] Ranjan Rocha MD) Metabolic acidosis (Acute) Gastroparesis (Acute) Lactic acidosis (Acute) UTI (urinary tract infection) (Acute) Acute renal failure (Acute) Septic shock (Acute) Hypoglycemia (Acute) RECOMMENDATIONS: 1. Continue hemodialysis support per nephrology recommendations. 2. Okay to discontinue antibiotics from my perspective. 3. Encourage incentive spirometer use while in bed. 4. Given the patient's lack of further ICU or pulmonary needs, will sign off. Please call with any additional questions. IMPRESSIONS: 1. Distributive versus hypovolemic shock Resolved. Although the patient met sepsis criteria upon admission to the hospital, infectious work-up has been negative to date. Plain film chest x-ray did not reveal evidence of a focal infiltrate. His hypotension may have been secondary to intravascular volume depletion as opposed to a primary infectious etiology. Therefore, empiric antimicrobials can be discontinued from my perspective. The patient remains hemodynamically stable. 2. Acute kidney injury/hypokalemia/hyperphosphatemia Improving. The patient presented to the hospital with profound kidney injury in the setting of intravascular volume depletion. Nephrology is currently following to assist with hemodialysis needs. 3. Significant lactic acidosis Resolved. Likely a combination of both type A and type B lactic acidemia in the setting of septic shock, coupled with the concurrent use of metformin in the setting of decreased renal function. 4. History of tobacco dependency The patient does have a rather extensive smoking history. For now, the patient can be continued on nicotine replacement therapy. I would recommend outpatient pulmonary follow-up so that baseline PFTs can be obtained. Smoking cessation counseling was provided. 5. Diabetes mellitus/hypertension/hyperlipidemia Complicates care, management, recovery and prognosis. Continue to hold home antihypertensives. This note was generated with [employer] dictation software. It may contain incorrect words, spelling, and punctuation that were not noted in checking the note before signing. Code Visit Inpatient E&M: 72383 Subs Hosp L2
[2019-08-22 10:24] LABS: Anion Gap 7 (5-15); BUN 35 mg/dL (7-18); BUN/Creat Ratio 6.1 RATIO (10-20); Calcium,Total 8.2 mg/dL (8.5-10.1); Chloride 104 mmol/L (98-107); Creatinine, Serum 5.77 mg/dL (0.70-1.30); EST Glomerular Filtration Rate 11 mL/min (>60); Est Glom Filt Rate - Afr Amer 13 mL/min (>60); Estimated Creatinine Clearance 12.54 ml/min; Glucose 188 mg/dL (74-106); Potassium 3.2 mmol/L (3.5-5.1); Sodium Level 139 mmol/L (136-145)
--- NOTE | 2019-08-22 10:33 | PN.SURG_ITS ---
Patient Problems: Active and Suspected Problems (Last Updated 08/19/19 @ 03:[address] Ranjan Rocha MD) Metabolic acidosis (Acute) Gastroparesis (Acute) Lactic acidosis (Acute) UTI (urinary tract infection) (Acute) Acute renal failure (Acute) Septic shock (Acute) Hypoglycemia (Acute) Subjective: RIJ tunnelled catheter working well- pt currently getting dialysis - Physical Exam Vitals/I&O's: Vital Signs Temp Pulse Resp BP Pulse Ox 97.9 F 89 16 159/90 H 97 08/22/19 07:56 08/22/19 07:56 08/22/19 07:56 08/22/19 07:56 08/22/19 07:56 Oxygen Delivery Method Room Air Weight: 163 lb 5.8 oz Body Mass Index (BMI) 27.8 Finger Stick Blood Glucose 287 Intake and Output for Last 24 Hours 08/20/19 08/21/19 08/22/19 23:59 23:59 23:59 Intake Total 3100 / 3100 1109.38 / 1109.38 235.62 / 235.62 Output Total 1550 / 1550 2225 / 2225 425 / 425 Balance 1550 / 1550 -1115.62 / -1115.62 -189.38 / -189.38 General: Alert, Oriented x3, Cooperative, No apparent distress Skin: - - Right chest/neck: catheter dressed c/d/i Microbiology Past 72 Hours 08/18/19 23:36 Urine Catheter - Perez Urine Culture - Final Culture exhibits no growth. 08/18/19 23:25 Blood Culture (Wb) - Anticubital Right Blood Culture - Preliminary No growth in 48 hours. 08/18/19 23:20 Blood Culture (Wb) - Left Hand Blood Culture - Preliminary No growth in 48 hours. 08/19/19 07:20 Mucosa - Nasopharyngeal Respiratory Panel (PCR) - Final Laboratory Results 08/19/19 06:48: Hep B Core Total Ab Negative 08/21/19 11:58: POC Glucose 104 08/21/19 14:25: POC Glucose 109 08/21/19 18:37: POC Glucose 113 H 08/21/19 21:35: POC Glucose 110 08/22/19 06:31: POC Glucose 113 H 08/22/19 09:05: Sodium 139, Potassium 3.2 L, Chloride 104, Carbon Dioxide 28.0, Anion Gap 7, BUN 35 H, Creatinine 5.77 H, Estim Creat Clear Calc 12.54, Est GFR (MDRD) Af Amer 13 L, Est GFR (MDRD) Non-Af 11 L, BUN/Creatinine Ratio 6.1 L, Glucose 188 H, Calcium 8.2 L Current Medications Chlorhexidine Gluconate () 1 each TOPICAL DAILY [facility] Last Admin: 08/22/19 10:29 Dose: Not Given Documented by: Glucagon () 1 mg IM .X1 PRN PRN Reason: Hypoglycemia Heparin Sodium (Porcine) () 10,000 units IV PRN PRN Heparin Sodium (Porcine) (Heparin Na) 5,000 unit SC Q12 [facility] Last Admin: 08/21/19 21:38 Dose: 5,000 unit Documented by: Dextrose (Dextrose 10%-Water) 250 mls @ 999 mls/hr IV .Q16M PRN; Protocol PRN Reason: HYPOGLYCEMIA Last Infusion: 08/19/19 14:52 Dose: Infused Documented by: Sodium Chloride () 250 mls @ 15 mls/hr IV .[id number] PRN PRN Reason: Saline Flush Sodium Chloride () 250 mls @ 15 mls/hr IV .[id number] PRN PRN Reason: Additional IVPB Infusion Pantoprazole Sodium 40 mg/ (Sodium Chloride) 110 mls @ 330 mls/hr IV Q12 [facility] Last Infusion: 08/21/19 22:00 Dose: Infused Documented by: Insulin Human Lispro (Humalog Kwikpen (Bkc)) 0 unit SC ACHS [facility]; Protocol Last Admin: 08/22/19 07:11 Dose: Not Given Documented by: Nicotine (Nicoderm Cq (Pbkc)) 14 mg TRANSDERM. DAILY [facility] Last Admin: 08/21/19 08:37 Dose: Not Given Documented by: Ondansetron HCl (Zofran) 4 mg IV Q6H PRN PRN PRN Reason: NAUSEA/VOMITING Prochlorperazine Edisylate (Compazine Iv) 5 mg IV Q4H PRN PRN PRN Reason: Breakthrough Nausea/Vomiting Sodium Chloride () 10 - 40 ml IV UD PRN PRN Reason: SALINE FLUSH Last Admin: 08/21/19 21:50 Dose: 20 ml Documented by: Medical Necessity - Tobacco Use Smoking Status: Current every day smoker Tobacco Use: Cigarettes Assessment/Plan All Active Problems (Last Updated 08/19/19 @ 03:[address] Ranjan Rocha MD) Metabolic acidosis (Acute) Gastroparesis (Acute) Lactic acidosis (Acute) UTI (urinary tract infection) (Acute) Acute renal failure (Acute) Septic shock (Acute) Hypoglycemia (Acute) 54-year-old male with septic shock, acute kidney injury need for emergent dialysis s/p tunnelled RIJ dialysis cath catheter working well, will s/o call with questions. Masah Hernandez M.D. Pager: [phone] [facility] [address] [place] [address], [facility], [address] [place] [address] Office: [phone]
[2019-08-22 11:11] LABS: Bedside Glucose 107 mg/dL (70-110)
--- NOTE | 2019-08-22 11:46 | PN.RENAL_ITS ---
Patient Problems: Active and Suspected Problems (Last Updated 08/19/19 @ 03:[address] Ranjan Rocha MD) Metabolic acidosis (Acute) Gastroparesis (Acute) Lactic acidosis (Acute) UTI (urinary tract infection) (Acute) Acute renal failure (Acute) Septic shock (Acute) Hypoglycemia (Acute) Subjective: No new complaints. Creatinine increased from yesterday. - Physical Exam Vitals/I&O's: Vital Signs Temp Pulse Resp BP Pulse Ox 97.9 F 89 16 159/90 H 97 08/22/19 07:56 08/22/19 07:56 08/22/19 07:56 08/22/19 07:56 08/22/19 07:56 Oxygen Delivery Method Room Air Weight: 74.1 kg Body Mass Index (BMI) 27.8 Finger Stick Blood Glucose 287 Intake and Output for Last 24 Hours 08/20/19 08/21/19 08/22/19 23:59 23:59 23:59 Intake Total 3100 / 3100 1109.38 / 1109.38 235.62 / 235.62 Output Total 1550 / 1550 2225 / 2225 425 / 425 Balance 1550 / 1550 -1115.62 / -1115.62 -189.38 / -189.38 General: Alert, Oriented x3, Cooperative HEENT: Atraumatic, PERRLA, EOMI, Normocephalic Neck: Supple, No JVD, Negative Carotid Bruits Lungs: Clear to auscultation, Normal air movement Cardiovascular: Regular rate, No murmurs Abdomen: Bowel Sounds Present, Soft, Non Tender Extremities: No edema, Capillary Refill Less than 3 Seconds Skin: No rashes, No breakdown Musculoskeletal: No Tenderness to Palpation of Joints or Extremities Neurological: Cranial nerves II-XII grossly intact Psych/Mental Status: Normal Affect, Appropriate Microbiology Past 72 Hours 08/18/19 23:36 Urine Catheter - Perez Urine Culture - Final Culture exhibits no growth. 08/18/19 23:25 Blood Culture (Wb) - Anticubital Right Blood Culture - Preliminary No growth in 48 hours. 08/18/19 23:20 Blood Culture (Wb) - Left Hand Blood Culture - Preliminary No growth in 48 hours. 08/19/19 07:20 Mucosa - Nasopharyngeal Respiratory Panel (PCR) - Final Laboratory Results 08/19/19 06:48: Hep B Core Total Ab Negative 08/21/19 11:58: POC Glucose 104 08/21/19 14:25: POC Glucose 109 08/21/19 18:37: POC Glucose 113 H 08/21/19 21:35: POC Glucose 110 08/22/19 06:31: POC Glucose 113 H 08/22/19 09:05: Sodium 139, Potassium 3.2 L, Chloride 104, Carbon Dioxide 28.0, Anion Gap 7, BUN 35 H, Creatinine 5.77 H, Estim Creat Clear Calc 12.54, Est GFR (MDRD) Af Amer 13 L, Est GFR (MDRD) Non-Af 11 L, BUN/Creatinine Ratio 6.1 L, Glucose 188 H, Calcium 8.2 L 08/22/19 11:05: POC Glucose 107 Current Medications Chlorhexidine Gluconate () 1 each TOPICAL DAILY [facility] Last Admin: 08/22/19 10:29 Dose: Not Given Documented by: Glucagon () 1 mg IM .X1 PRN PRN Reason: Hypoglycemia Heparin Sodium (Porcine) () 10,000 units IV PRN PRN Heparin Sodium (Porcine) (Heparin Na) 5,000 unit SC Q12 [facility] Last Admin: 08/21/19 21:38 Dose: 5,000 unit Documented by: Dextrose (Dextrose 10%-Water) 250 mls @ 999 mls/hr IV .Q16M PRN; Protocol PRN Reason: HYPOGLYCEMIA Last Infusion: 08/19/19 14:52 Dose: Infused Documented by: Sodium Chloride () 250 mls @ 15 mls/hr IV .[id number] PRN PRN Reason: Saline Flush Sodium Chloride () 250 mls @ 15 mls/hr IV .[id number] PRN PRN Reason: Additional IVPB Infusion Pantoprazole Sodium 40 mg/ (Sodium Chloride) 110 mls @ 330 mls/hr IV Q12 [facility] Last Infusion: 08/21/19 22:00 Dose: Infused Documented by: Insulin Human Lispro (Humalog Kwikpen (Bkc)) 0 unit SC ACHS [facility]; Protocol Last Admin: 08/22/19 11:07 Dose: Not Given Documented by: Nicotine (Nicoderm Cq (Pbkc)) 14 mg TRANSDERM. DAILY [facility] Last Admin: 08/22/19 10:48 Dose: Not Given Documented by: Ondansetron HCl (Zofran) 4 mg IV Q6H PRN PRN PRN Reason: NAUSEA/VOMITING Prochlorperazine Edisylate (Compazine Iv) 5 mg IV Q4H PRN PRN PRN Reason: Breakthrough Nausea/Vomiting Sodium Chloride () 10 - 40 ml IV UD PRN PRN Reason: SALINE FLUSH Last Admin: 08/21/19 21:50 Dose: 20 ml Documented by: Medical Necessity - Tobacco Use Smoking Status: Current every day smoker Tobacco Use: Cigarettes Assessment/Plan All Active Problems (Last Updated 08/19/19 @ 03:[address] Ranjan Rocha MD) Metabolic acidosis (Acute) Gastroparesis (Acute) Lactic acidosis (Acute) UTI (urinary tract infection) (Acute) Acute renal failure (Acute) Septic shock (Acute) Hypoglycemia (Acute) Acute renal failure Severe lactic acidosis Septic shock, likely urinary origin, clinically better Presented with severe renal failure. S/p dialysis. Urine output is better. seen on HD today. s/p TDC Lactic acidosis. Combination of type a and type B. Levels have come down. Hypokalemia. HD on 4k bath start placement
--- NOTE | 2019-08-22 12:05 | CASEMGMT ---
Per Dr. Murphy, he would like referral for OP dialysis for pt at this time for acute renal failure. Hep panel resulted and entire referral faxed to [facility] admissions at this time as well as [facility]. Call to Darlyn at [facility] to notify of referral, voices understanding. CM to follow. Joan EWING CM
[2019-08-22] MEDS: 0.9% Saline Lock 10 ML Syringe IV (14:10)
[2019-08-22] MEDS: Heparin Injection (Vial) 5,000 UNIT/ML VIAL 5000 UNIT SC ×2 (14:12→21:19)
--- NOTE | 2019-08-22 16:10 | DIALYSIS ---
HD x3.5 hours completed at 1240, tolerated well, labs drawn pre-tx, UF 0mL, ran even, accessed via right chest tunneled dialysis catheter, worked well except for with any coughing arterial pressure spikes causing alarms, dressing changed post tx
--- NOTE | 2019-08-22 16:16 | DIALYSIS ---
Dialysate adjusted at [address] Murphy's orders due to patient's resulting potassium
[2019-08-22 17:56] LABS: Bedside Glucose 97 mg/dL (70-110)
--- NOTE | 2019-08-22 18:42 | PCM.PROGNOTE ---
Patient Problems: Active and Suspected Problems (Last Updated 08/19/19 @ 03:[address] Ranjan Rocha MD) Metabolic acidosis (Acute) Gastroparesis (Acute) Lactic acidosis (Acute) UTI (urinary tract infection) (Acute) Acute renal failure (Acute) Septic shock (Acute) Hypoglycemia (Acute) Subjective: Patient was seen and examined today, he voices no complaints of any shortness of breath, chills, or fever. Patient had hemodialysis today, patient's blood culture shows no growth at 48 hours, urine culture exhibits no growth. Pulmonary medicine stopped the patient's antibiotics today. - Physical Exam Vitals/I&O's: Vital Signs Temp Pulse Resp BP Pulse Ox 98.9 F 89 18 137/85 H 96 08/22/19 17:50 08/22/19 17:50 08/22/19 17:50 08/22/19 17:50 08/22/19 17:50 Oxygen Delivery Method Room Air Weight: 74.1 kg Body Mass Index (BMI) 27.8 Finger Stick Blood Glucose 287 Intake and Output for Last 24 Hours 08/20/19 08/21/19 08/22/19 23:59 23:59 23:59 Intake Total 3100 / 3100 1109.38 / 1109.38 985.62 / 985.62 Output Total 1550 / 1550 2225 / 2225 1075 / 1075 Balance 1550 / 1550 -1115.62 / -1115.62 -89.38 / -89.38 General: Alert, Oriented x3, Cooperative, No apparent distress, Well developed HEENT: Atraumatic, PERRLA, EOMI, Normocephalic Oral: Moist Mucosa Neck: Supple, No JVD, Trachea Midline, Thyroid Normal Size and Texture Lungs: Clear to auscultation, Normal air movement, No rhonchi, No wheeze, No rales Cardiovascular: Regular rate, Regular Rhythm, Normal S1, Normal S2, No murmurs Abdomen: Bowel Sounds Present, Soft, Non Tender, Non-Distended, No hernias noted Extremities: No clubbing, No cyanosis, No edema, Capillary Refill Less than 3 Seconds Skin: No rashes, No breakdown Musculoskeletal: No Tenderness to Palpation of Joints or Extremities Neurological: Cranial nerves II-XII grossly intact, Neuro grossly intact, Sensory exam intact to light touch and pain Psych/Mental Status: Normal Affect, Appropriate, Alert and oriented to time, place, person, mood and affect Microbiology Past 72 Hours 08/18/19 23:36 Urine Catheter - Perez Urine Culture - Final Culture exhibits no growth. 08/18/19 23:25 Blood Culture (Wb) - Anticubital Right Blood Culture - Preliminary No growth in 48 hours. 08/18/19 23:20 Blood Culture (Wb) - Left Hand Blood Culture - Preliminary No growth in 48 hours. Laboratory Results 08/21/19 18:37: POC Glucose 113 H 08/21/19 21:35: POC Glucose 110 08/22/19 06:31: POC Glucose 113 H 08/22/19 09:05: Sodium 139, Potassium 3.2 L, Chloride 104, Carbon Dioxide 28.0, Anion Gap 7, BUN 35 H, Creatinine 5.77 H, Estim Creat Clear Calc 12.54, Est GFR (MDRD) Af Amer 13 L, Est GFR (MDRD) Non-Af 11 L, BUN/Creatinine Ratio 6.1 L, Glucose 188 H, Calcium 8.2 L 08/22/19 11:05: POC Glucose 107 08/22/19 16:51: POC Glucose 97 Current Medications Chlorhexidine Gluconate () 1 each TOPICAL DAILY [facility] Last Admin: 08/22/19 10:29 Dose: Not Given Documented by: Glucagon () 1 mg IM .X1 PRN PRN Reason: Hypoglycemia Heparin Sodium (Porcine) () 10,000 units IV PRN PRN Heparin Sodium (Porcine) (Heparin Na) 5,000 unit SC Q12 [facility] Last Admin: 08/22/19 14:12 Dose: 5,000 unit Documented by: Dextrose (Dextrose 10%-Water) 250 mls @ 999 mls/hr IV .Q16M PRN; Protocol PRN Reason: HYPOGLYCEMIA Last Infusion: 08/19/19 14:52 Dose: Infused Documented by: Sodium Chloride () 250 mls @ 15 mls/hr IV .[id number] PRN PRN Reason: Saline Flush Sodium Chloride () 250 mls @ 15 mls/hr IV .[id number] PRN PRN Reason: Additional IVPB Infusion Pantoprazole Sodium 40 mg/ (Sodium Chloride) 110 mls @ 330 mls/hr IV Q12 [facility] Last Infusion: 08/22/19 14:29 Dose: Infused Documented by: Insulin Human Lispro (Humalog Kwikpen (Bkc)) 0 unit SC ACHS [facility]; Protocol Last Admin: 08/22/19 16:53 Dose: Not Given Documented by: Nicotine (Nicoderm Cq (Pbkc)) 14 mg TRANSDERM. DAILY [facility] Last Admin: 08/22/19 10:48 Dose: Not Given Documented by: Ondansetron HCl (Zofran) 4 mg IV Q6H PRN PRN PRN Reason: NAUSEA/VOMITING Prochlorperazine Edisylate (Compazine Iv) 5 mg IV Q4H PRN PRN PRN Reason: Breakthrough Nausea/Vomiting Sodium Chloride () 10 - 40 ml IV UD PRN PRN Reason: SALINE FLUSH Last Admin: 08/22/19 14:10 Dose: 10 ml Documented by: Medical Necessity - Tobacco Use Smoking Status: Current every day smoker Tobacco Use: Cigarettes Assessment/Plan All Active Problems (Last Updated 08/19/19 @ 03:[address] Ranjan Rocha MD) Metabolic acidosis (Acute) Gastroparesis (Acute) Lactic acidosis (Acute) UTI (urinary tract infection) (Acute) Acute renal failure (Acute) Septic shock (Acute) Hypoglycemia (Acute) #1 septic shock-probably secondary to acute urinary tract infection-final urine culture negative however, patient is off antibiotics at this time #2 acute kidney injury with acute kidney failure-patient continues with dialysis #3 type 2 diabetes-monitor blood sugars #4 acute urinary tract infection-organism unknown at this time #5 essential hypertension Code Visit Inpatient E&M: 34125 Subs Hosp L2
[2019-08-22 21:36] LABS: Bedside Glucose 99 mg/dL (70-110)
[2019-08-23 03:01] VITALS: PULSE 68
[2019-08-23 03:15] VITALS: BP 136/79; PULSE 80; RESP 14; TEMP 37; O2SAT 97
[2019-08-23 06:46] LABS: Bedside Glucose 99 mg/dL (70-110)
[2019-08-23 06:53] VITALS: PULSE 74
[2019-08-23 08:34] VITALS: BP 139/76; PULSE 98; RESP 18; TEMP 36.7; O2SAT 99
[2019-08-23] MEDS: Heparin Injection (Vial) 5,000 UNIT/ML VIAL 5000 UNIT SC (08:35)
[2019-08-23] MEDS: Pantoprazole Sodium 40 MG Tablet PO (08:36)
[2019-08-23 11:07] VITALS: PULSE 71
--- NOTE | 2019-08-23 12:01 | DCINST_ITS ---
- Discharge Diagnoses Current Active Problems: Current Active and Chronic Problems (Last Updated 08/19/19 @ 03:[address] Ranjan Rocha MD) Metabolic acidosis (Acute) Gastroparesis (Acute) Lactic acidosis (Acute) UTI (urinary tract infection) (Acute) Acute renal failure (Acute) Septic shock (Acute) Hypoglycemia (Acute) You will use the following diet at home:: Calorie/Carbohydrate Controlled (specify 1200, 1400, etc) - 1800 mali Your food should be the consistency of: Regular Your liquids should be the consistency of: Regular/Thin Discharge Activity: Return to Normal Activity Weight Bearing Status: Full weight bearing Allergies/Adverse Reactions: Allergies No Known Allergies Allergy (Verified 08/18/19 21:50) Medications to take at Discharge Atorvastatin Calcium [Lipitor] 20 mg PO QHS 08/19/19 Cholecalciferol (VIT D3) [Vitamin D3] 50,000 unit PO QWEEK 08/19/19 Nitroglycerin 0.4 mg SL DAILY PRN 08/19/19 Ondansetron [Zofran Odt] 4 - 8 mg PO Q8H PRN PRN 08/19/19 Primary Care Physician: Alexa Cramer [Primary Care Provider] - Please follow up with your Primary Care Physician in: in 2 weeks Test Results: Test results from this visit will be discussed in further detail at your follow- up appointment, if applicable. Please Follow Up With: Terrie Murphy MD When: as directed
[2019-08-23 12:05] LABS: Bedside Glucose 97 mg/dL (70-110)
--- NOTE | 2019-08-23 12:47 | PHA.DC.MR ---
Pharmacy Service has performed discharge medication reconciliation for this patient. The patient's discharge medication list was reviewed for discrepancies and discrepancies were resolved. Home Medications Atorvastatin Calcium [Lipitor] 20 mg PO QHS 08/19/19 Cholecalciferol (VIT D3) [Vitamin D3] 50,000 unit PO QWEEK 08/19/19 Nitroglycerin 0.4 mg SL DAILY PRN 08/19/19 Ondansetron [Zofran Odt] 4 - 8 mg PO Q8H PRN PRN 08/19/19
--- NOTE | 2019-08-23 12:49 | CASEMGMT ---
Pt is ok with this RN CM calling sister, Delfina, to update on OP dialysis at this time. He states his sister will be transporting him to dialysis for the 1st visit. Call to sister, Delfina, and she states that she already spoke with dialysis center and has been updated on all. Delfina states that pt will not be driving to dialysis at all but that family will transport. She has questions regarding how long pt may be on dialysis and this RN CM referred her to nephrology/dialysis center for further answers regarding this, voices understanding. Delfina states no further questions/concerns/needs at this time. SStaten RN CM
--- NOTE | 2019-08-23 13:11 | PCM.PN.REN ---
Patient Problems: Active and Suspected Problems (Last Updated 08/19/19 @ 03:[address] Ranjan Rocha MD) Metabolic acidosis (Acute) Gastroparesis (Acute) Lactic acidosis (Acute) UTI (urinary tract infection) (Acute) Acute renal failure (Acute) Septic shock (Acute) Hypoglycemia (Acute) Subjective: No new complaints - Physical Exam Vitals/I&O's: Vital Signs Temp Pulse Resp BP Pulse Ox 98.1 F 71 18 139/76 H 99 08/23/19 08:34 08/23/19 11:07 08/23/19 08:34 08/23/19 08:34 08/23/19 08:34 Oxygen Delivery Method Room Air Weight: 72.9 kg Body Mass Index (BMI) 27.8 Finger Stick Blood Glucose 287 Intake and Output for Last 24 Hours 08/21/19 08/22/19 08/23/19 23:59 23:59 23:59 Intake Total 1109.38 / 1109.38 1105.62 / 1105.62 997 / 997 Output Total 2225 / 2225 1735 / 1735 650 / 650 Balance -1115.62 / -1115.62 -629.38 / -629.38 347 / 347 General: Alert, Oriented x3, Cooperative HEENT: Atraumatic, PERRLA, EOMI, Normocephalic Neck: Supple, No JVD, Negative Carotid Bruits Lungs: Clear to auscultation, Normal air movement Cardiovascular: Regular rate, No murmurs Abdomen: Bowel Sounds Present, Soft, Non Tender Extremities: No edema, Capillary Refill Less than 3 Seconds Skin: No rashes, No breakdown Musculoskeletal: No Tenderness to Palpation of Joints or Extremities Neurological: Cranial nerves II-XII grossly intact Psych/Mental Status: Normal Affect, Appropriate Microbiology Past 72 Hours 08/18/19 23:36 Urine Catheter - Perez Urine Culture - Final Culture exhibits no growth. 08/18/19 23:25 Blood Culture (Wb) - Anticubital Right Blood Culture - Preliminary No growth in 48 hours. 08/18/19 23:20 Blood Culture (Wb) - Left Hand Blood Culture - Preliminary No growth in 48 hours. Laboratory Results 08/22/19 16:51: POC Glucose 97 08/22/19 21:14: POC Glucose 99 08/23/19 06:29: POC Glucose 99 08/23/19 11:44: POC Glucose 97 Current Medications Chlorhexidine Gluconate () 1 each TOPICAL DAILY [facility] Last Admin: 08/23/19 08:36 Dose: Not Given Documented by: Glucagon () 1 mg IM .X1 PRN PRN Reason: Hypoglycemia Heparin Sodium (Porcine) () 10,000 units IV PRN PRN Heparin Sodium (Porcine) (Heparin Na) 5,000 unit SC Q12 [facility] Last Admin: 08/23/19 08:35 Dose: 5,000 unit Documented by: Dextrose (Dextrose 10%-Water) 250 mls @ 999 mls/hr IV .Q16M PRN; Protocol PRN Reason: HYPOGLYCEMIA Last Infusion: 08/19/19 14:52 Dose: Infused Documented by: Sodium Chloride () 250 mls @ 15 mls/hr IV .[id number] PRN PRN Reason: Saline Flush Sodium Chloride () 250 mls @ 15 mls/hr IV .[id number] PRN PRN Reason: Additional IVPB Infusion Insulin Human Lispro (Humalog Kwikpen (Bkc)) 0 unit SC ACHS [facility]; Protocol Last Admin: 08/23/19 11:45 Dose: Not Given Documented by: Nicotine (Nicoderm Cq (Pbkc)) 14 mg TRANSDERM. DAILY [facility] Last Admin: 08/23/19 08:36 Dose: Not Given Documented by: Ondansetron HCl (Zofran) 4 mg IV Q6H PRN PRN PRN Reason: NAUSEA/VOMITING Pantoprazole Sodium (Protonix) 40 mg PO DAILY [facility] Last Admin: 08/23/19 08:36 Dose: 40 mg Documented by: Prochlorperazine Edisylate (Compazine Iv) 5 mg IV Q4H PRN PRN PRN Reason: Breakthrough Nausea/Vomiting Sodium Chloride () 10 - 40 ml IV UD PRN PRN Reason: SALINE FLUSH Last Admin: 08/22/19 14:10 Dose: 10 ml Documented by: Medical Necessity - Tobacco Use Smoking Status: Current every day smoker Tobacco Use: Cigarettes Assessment/Plan All Active Problems (Last Updated 08/19/19 @ 03:[address] Ranjan Rocha MD) Metabolic acidosis (Acute) Gastroparesis (Acute) Lactic acidosis (Acute) UTI (urinary tract infection) (Acute) Acute renal failure (Acute) Septic shock (Acute) Hypoglycemia (Acute) Acute renal failure Severe lactic acidosis Septic shock, likely urinary origin, clinically better Presented with severe renal failure. S/p dialysis. Urine output is better. s/p TDC Lactic acidosis. Combination of type a and type B. Levels have come down. Hypokalemia. better Patient used to live in [place] and has recently moved to be here in [place] with sister. He was only seeing a psychiatrist in [place], apparently blood work showed high glucose and hence he was referred to see a felt carbonizer. He saw a physician here at [facility]. He was started on metformin for that. We will check if he had any recent kidney function checks. If no recovery in another 2 to 3 weeks, he may need a kidney biopsy.
[2019-08-23 13:20] VITALS: BP 144/94; PULSE 98; RESP 18; TEMP 36.7; O2SAT 97
--- NOTE | 2019-08-26 09:24 | DS.PCM_ITS ---
Discharge Date and Diagnosis Date of Admission: 08/19/19 Date of Discharge: 08/23/19 - Primary Discharge Diagnosis #1 septic shock-probably secondary to acute urinary tract infection-organism identified #2 acute kidney injury with acute kidney failure resulting in dialysis #3 type 2 diabetes #4 acute urinary tract infection-organism unknown at this time #5 essential hypertension #6 hypokalemia #7 developmental delay #8 hypoglycemia Hospital Course and Treatment Operations: - - Tunneled dialysis catheter insertion Procedures: Dialysis Summary of Care Provided: The patient is a 54 year old M was seen in the emergency room at [facility] with a chief complaint of nausea, vomiting, and diarrhea. Labs obtained in the emergency room showed white blood cell count to be elevated at 28.6, chemistry panel showed potassium of 3.1, BUN of 86, and creatinine of 11.3. Glucose was noted to be low at 27. Urinalysis was performed and it was indicative of a urinary tract infection, lactic acid was obtained and it was 26.3. Patient was admitted to the ICU, he received IV fluids, IV antibiotics, and was placed on Levophed for short period of time. Patient was seen in consultation by pulmonary medicine and nephrology, he was also seen in consultation by general surgery who inserted an internal jugular temporary dialysis catheter and then a tunneled dialysis catheter. Patient underwent hemodialysis, urine culture resulted and no growth and so the likely organism causing the septic shock was unknown. Improved during his hospitalization he was transferred to PCU where he underwent continued dialysis. On 08/23/2019, patient was seen and examined: On examination he appeared in good health and spirits. Vital signs as documented. Skin warm and dry and without overt rashes. Neck without JVD. Lungs clear. Heart exam notable for regular rhythm, normal sounds and absence of murmurs, rubs or gallops. Abdomen unremarkable and without evidence of organomegaly, masses, or abdominal aortic enlargement. Extremities nonedematous. Neuro: Cranial nerves II through XII are grossly intact, no focal motor deficits were noted, sensation to light touch and pinprick intact. Psych: Patient is alert and oriented x3, he does not appear anxious or depressed On 08/23/2019, patient was seen and examined and felt to be in stable condition for discharge - Physical Exam Vitals/I&O's: Vital Signs Temp Pulse Resp BP Pulse Ox 98.1 F 98 18 144/94 H 97 08/23/19 13:20 08/23/19 13:20 08/23/19 13:20 08/23/19 13:20 08/23/19 13:20 Oxygen Delivery Method Room Air Weight: 72.9 kg Body Mass Index (BMI) 27.8 Finger Stick Blood Glucose 287 Microbiology Past 72 Hours 08/18/19 23:25 Blood Culture (Wb) - Anticubital Right Blood Culture - Final No growth in 5 days. 08/18/19 23:20 Blood Culture (Wb) - Left Hand Blood Culture - Final No growth in 5 days. Discharge Activity: Return to Normal Activity Weight Bearing Status: Full weight bearing Home Medications: Medications to take at Discharge Atorvastatin Calcium [Lipitor] 20 mg PO QHS 08/19/19 Cholecalciferol (VIT D3) [Vitamin D3] 50,000 unit PO QWEEK 08/19/19 Nitroglycerin 0.4 mg SL DAILY PRN 08/19/19 Ondansetron [Zofran Odt] 4 - 8 mg PO Q8H PRN PRN 08/19/19 Primary Care Physician: Alexa Cramer [Primary Care Provider] - Please follow up with your Primary Care Physician in: in 2 weeks Please Follow Up With: Terrie Murphy MD When: as directed Disposition: Home Minutes spent on discharge:: 31 Patient Condition:: Stable Medical Necessity - Tobacco Use Smoking Status: Current every day smoker Tobacco Use: Cigarettes Meaningful Use Info Meaningful Use Diagnoses (Choose all that apply): None applicable Code Visit Inpatient E&M: 50909 Disch Hosp
== END 2019-08-23 13:44 | disposition home or self-care (01) | DRG 871 ==
LOC: ED 08-19 01:12 → ICU 08-19 01:50 → PCU 08-22 09:03
PROVIDERS: Family Medicine; Internal Medicine; Internal Medicine Critical Care Medicine; Surgery; Admitting Provider Hospitalist; Emergency Provider Emergency Medicine; Visit Provider Internal Medicine
PROC: 0JH63XZ Insertion of Tunneled Vascular Access Device into Chest Subcutaneous Tissue and Fascia, Percutaneous Approach (ICD-10-PCS; principal; 2019-08-21 12:15)
DX: A41.9 Sepsis, unspecified organism (principal); R65.21 Severe sepsis with septic shock; E87.2 Acidosis; N39.0 Urinary tract infection, site not specified; N17.9 Acute kidney failure, unspecified; E11.43 Type 2 diabetes mellitus with diabetic autonomic (poly)neuropathy; K31.84 Gastroparesis; Z79.84 Long term (current) use of oral hypoglycemic drugs; F17.210 Nicotine dependence, cigarettes, uncomplicated; I10 Essential (primary) hypertension; E78.5 Hyperlipidemia, unspecified; E87.6 Hypokalemia; R62.50 Unspecified lack of expected normal physiological development in childhood; E11.649 Type 2 diabetes mellitus with hypoglycemia without coma
CPT/HCPCS: 71045; 74018; 74176; 76000; 76770; 80048; 80069; 80076; 81001; 82570; 82803; 82962; 83036; 83605; 83690; 83735; 84100; 84300; 84484; 85025; 85610; 85730; 86704; 87040; 87086; 87340; 87633; 87641; 87804; 90937; 92526; 92610; 97802; 99285; 99406; J7030; J7040; J7050; A4216; C1750; C1752; G0257; J0610; J2405

== ENCOUNTER → 2019-09-20 14:46 | Outpatient (CLI) | payer MEDICARE, MEDICAID, SELFPAY ==
[2019-08-19 02:37] VITALS: BMI 27.8
--- NOTE | 2019-09-20 14:50 | RAD_ITS ---
STUDY: X-RAY CHEST REASON FOR EXAM: Male, 54 years old. Cough post procedure. Pat states he had some sort of tube in his throat cough since then. Patient states dialysis catheter. TECHNIQUE: PA and lateral views of the chest. COMPARISON: Comparison is made with prior study dated August 21, 2019. FINDINGS: A right-sided double dialysis catheter seen with the tip at the junction of the superior vena cava and right atrium. The lungs are clear and expanded. Scattered calcified granulomas. There is no demonstrated pleural abnormality. Normal size heart. Normal mediastinum and berta. Normal visualized pulmonary arteries. Normal visualized aortic arch and descending thoracic aorta. There are degenerative changes of the visualized thoracic spine. Normal visualized ribs, clavicles, and shoulders. There is no demonstrated abnormality of the visualized soft tissue structures of the upper abdomen. RAD/Chest PA and Lateral IMPRESSION: No acute abnormality is seen. Electronically Signed: Foreign Daigle, at 15:52 EDT , Service support ,
== END ==
PROVIDERS: Referring Provider Nurse Practitioner Family; Visit Provider Nurse Practitioner Family
DX: R05 Cough (principal)
CPT/HCPCS: 71046

== ENCOUNTER → 2023-04-05 | Outpatient (CLI) | payer MEDICARE, MEDICAID, SELFPAY ==
[2023-04-05 09:37] LABS: Hematocrit 46.6 % (40-54); Mean Corp Hgb Conc 32.2 g/dL (32-36); Mean Corpuscular Hgb 29.9 pg (27.0-32.0); Mean Platelet Vol. 9.6 fl (6.2-12.0); Platelet Count 318 K/mm3 (150-450); RBC Distribution Width CV 14.1 % (11.6-14.6); RBC Distribution Width SD 47.9 fl (35.1-43.9); Red Blood Count 5.01 M/mm3 (4.6-6.2)
[2023-04-05 10:05] LABS: AST(SGOT) 12 U/L (15-37); Alanine Aminotransfer ALT/SGPT 19 U/L (16-61); Albumin, Serum 3.7 g/dL (3.2-5.0); Alkaline Phosphatase 63 U/L (45-117); Anion Gap 5 (5-15); BUN 11 mg/dL (7-18); BUN/Creat Ratio 11.5 RATIO (10-20); Calcium,Total 8.6 mg/dL (8.5-10.1); Chloride 109 mmol/L (98-107); Creatinine, Serum 0.96 mg/dL (0.70-1.30); EST Glomerular Filtration Rate 87 mL/min (>60); Est Glom Filt Rate - Afr Amer 105 mL/min (>60); Globulin 3.8 g/dL (2.2-4.2); Glucose 105 mg/dL (74-106); Potassium 3.9 mmol/L (3.5-5.1); Protein, Total 7.5 g/dL (6.4-8.2); Sodium Level 139 mmol/L (136-145)
[2023-04-05 10:33] LABS: Valproic Acid (Depakene) Level 63 ug/mL (50-100)
== END | disposition home or self-care (01) ==
LOC: LAB 09:09
PROVIDERS: Referring Provider Psychiatry & Neurology Psychiatry; Visit Provider Psychiatry & Neurology Psychiatry
DX: Z79.899 Other long term (current) drug therapy (principal)
CPT/HCPCS: 36415; 80053; 80164; 82140; 85027

== ENCOUNTER → 2023-10-29 | Outpatient (CLI) | payer MEDICARE, MEDICAID, SELFPAY ==
[2023-10-29 09:52] LABS: Hematocrit 45.4 % (40-54); Hemoglobin 14.6 g/dL (13.0-16.5); Mean Corp Hgb Conc 32.2 g/dL (32-36); Mean Corpuscular Volume 93.2 fL (80-94); Mean Platelet Vol. 9.6 fl (6.2-12.0); Platelet Count 353 K/mm3 (150-450); RBC Distribution Width CV 13.9 % (11.6-14.6); RBC Distribution Width SD 47.8 fl (35.1-43.9); Red Blood Count 4.87 M/mm3 (4.6-6.2); White Blood Count 14.2 K/mm3 (4.4-11.0)
[2023-10-29 10:14] LABS: ALB/GLOB Ratio 0.9 RATIO (0.9-2.4); AST(SGOT) 14 U/L (15-37); Alanine Aminotransfer ALT/SGPT 18 U/L (16-61); Albumin, Serum 3.7 g/dL (3.2-5.0); Alkaline Phosphatase 76 U/L (45-117); Anion Gap 0 (5-15); BUN 10 mg/dL (7-18); BUN/Creat Ratio 11.2 RATIO (10-20); Calcium,Total 9.5 mg/dL (8.5-10.1); Chloride 109 mmol/L (98-107); Creatinine, Serum 0.89 mg/dL (0.70-1.30); EST Glomerular Filtration Rate 94 mL/min (>60); Est Glom Filt Rate - Afr Amer 114 mL/min (>60); Globulin 4.1 g/dL (2.2-4.2); Glucose 106 mg/dL (74-106); Potassium 4.7 mmol/L (3.5-5.1); Protein, Total 7.8 g/dL (6.4-8.2); Sodium Level 138 mmol/L (136-145)
[2023-10-29 10:22] LABS: Valproic Acid (Depakene) Level 61 ug/mL (50-100)
== END | disposition home or self-care (01) ==
PROVIDERS: Referring Provider Psychiatry & Neurology Psychiatry; Visit Provider Psychiatry & Neurology Psychiatry
DX: Z79.899 Other long term (current) drug therapy (principal)
CPT/HCPCS: 36415; 80053; 80164; 82140; 85027

== ENCOUNTER 2024-06-29 11:39 | Emergency (ER) | payer MEDICARE, MEDICAID, SELFPAY ==
[2024-06-29 11:40] VITALS: BP 108/76; PULSE 122; RESP 16; TEMP 36.2; O2SAT 97; BMI 25.2
--- NOTE | 2024-06-29 11:43 | RAD_ITS ---
STUDY: X-RAY - RIGHT WRIST REASON FOR EXAM: Male, 59 years old. NO INJURY, PAIN TECHNIQUE: 3 views of the right wrist were obtained. COMPARISON: None. FINDINGS: Normal visualized distal radius and ulna. Normal radiocarpal articulation. Normal distal radioulnar articulation. Normal carpal bones. Normal carpal articulations. Normal carpometacarpal articulation of the thumb. Normal second through fifth carpometacarpal articulations. Normal visualized metacarpal bones. The soft tissue structures are unremarkable. There is no demonstrated acute fracture. RAD/Wrist min 3 Views IMPRESSION: Normal x-ray examination of the wrist. Electronically Signed: Manuel Cao MD at 11:56 EST ,
--- NOTE | 2024-06-29 14:52 | EX.ED.UPPERE ---
HPI History of Present Illness Chief Complaint: Upper Extremity Injury Informant: patient Narrative Narrative: 59-year-old [id number] male states he woke up with pain in his right distal forearm and wrist yesterday. He states I may have hit it on my nightstand in my sleep but he states he has no reason to suspect that actually happened. States it has been sore worse with movement, denies any fevers, chills, redness, other obvious etiology. He denies any numbness tingling in his fingertips. No problems as high as his elbow. He states he does some repetitive movements with typing. [facility] Medical History s/p dialysis catheter removal Hyperlipidemia Hypertension Diabetes mellitus Hypoglycemia Septic shock Acute renal failure UTI (urinary tract infection) Lactic acidosis Gastroparesis Metabolic acidosis Home Medications ?Medication ?Instructions ?Recorded ?Last Taken ?Type atorvastatin 20 mg tablet 20 mg PO QHS cholesterol 08/19/19 Unknown History cholecalciferol (vitamin D3) 25 50,000 unit PO QWEEK vitamin 08/19/19 Unknown History mcg (1,000 unit) tablet nitroglycerin 0.4 mg sublingual 0.4 mg SL DAILY PRN Cardiac/Chest 08/19/19 Unknown History tablet Pain ondansetron 4 mg disintegrating 4 - 8 mg PO Q8H PRN PRN Nausea 08/19/19 Unknown History tablet Allergy/AdvReac Type Severity Reaction Status Date / Time No Known Allergies Allergy Verified 06/29/24 11:42 Social History Smoking Status: Current every day smoker tobacco type: cigarettes ROS ROS ED Constitutional Constitutional ED: Denies chills or fever(s) Musculoskeletal Musculoskeletal: Reports extremity pain; Denies neck pain Integumentary Denies Abrasions, rash or wounds Neurologic Neurologic: Denies paresthesias or weakness EXAM Physical Exam Const Vital Signs: 06/29/24 11:40 Temperature 97.1 F L Temperature Source Temporal Pulse Rate 122 H Respiratory Rate 16 Blood Pressure 108/76 Blood Pressure Mean 86 Pulse Ox 97 Oxygen Delivery Method Room Air Positive well nourished and well developed General Appearance ED: well developed and NAD Neck full ROM and supple Back/Spine normal ROM and normal to inspection Extremity normal to inspection and full ROM Extremity Narrative: Patient has excellent range of motion of his wrist including flexion and extension without limitation, he has no pain with passive supination/pronation. He has a negative Tinel's at the median tunnel. Normal median, radial, ulnar nerve function throughout his hand without any sensory deficits. There are some tenderness in the wrist complex at the radial aspect including the snuffbox and the extensor tendons of the thumb, but his María Elena test is negative. The CMCJ at the thumb is not tender. There is no erythema or swelling over any of these joints. There is no sign of an infection. Neuro oriented x3, no focal motor deficits and no sensory deficits noted Sensorium / Orientation: alert Psych mental status grossly normal and thought process normal Skin no wounds Rashes: no rashes MDM MDM MDM Narrative Medical decision making narrative: Three-view x-ray series of the right wrist on my interpretation is normal, radiology was in agreement, patient was reassured there is no fracture he states that was his main concern. Furthermore, he states he has a wrist brace I recommend he use it as needed and use Tylenol since he is a diabetic and should avoid ibuprofen, and ice as needed, and follow-up with his doctor if he continues to have issues. This does not appear to be a septic or crystal induced arthritis and may actually just be a contusion. Radiography Diagnostic Testing: Clinical Impression(s) from Imaging Studies Wrist X-Ray 06/29/24 11:43 IMPRESSION: Normal x-ray examination of the wrist. Electronically Signed: Manuel Cao MD at 11:56 EST Reading Location ID and State: [facility] / [place] , Service support , Discharge Plan Triage Chief Complaint: Upper Extremity Injury ED Provider: Andrew Segovia Dx/Rx/DC Orders Clinical Impression: Acute pain of right wrist Instructions: ED Contusion, Upper Extremity, ED Tendonitis Prescriptions: No Action atorvastatin 20 MG tablet 20 mg PO QHS nitroglycerin 0.4 MG tablet, sublingual 0.4 mg SL DAILY PRN (Reason: Cardiac/Chest Pain) ondansetron 4 MG tablet 4 - 8 mg PO Q8H PRN PRN (Reason: Nausea) cholecalciferol (vitamin D3) 1,000 UNIT tablet 50,000 unit PO QWEEK Primary Care Provider: Oliver Banda Referrals: Oliver Banda DO [Primary Care Provider] - 10-14 Days if not better Print Language: [place] Disposition Disposition: Home, Self Care Discharge Date/Time: 06/29/24 15:25
[2024-06-29 14:59] VITALS: BP 108/76; PULSE 88; RESP 17; TEMP 36.5; O2SAT 96
== END 2024-06-29 15:25 | disposition home or self-care (01) ==
PROVIDERS: Emergency Provider Emergency Medicine; PCP Student in an Organized Health Care Education/Training Program; Visit Provider Emergency Medicine
DX: M25.531 Pain in right wrist (principal); E11.43 Type 2 diabetes mellitus with diabetic autonomic (poly)neuropathy; I10 Essential (primary) hypertension; E78.5 Hyperlipidemia, unspecified; M79.631 Pain in right forearm; F17.210 Nicotine dependence, cigarettes, uncomplicated; K31.84 Gastroparesis
CPT/HCPCS: 73110; 99282

== ENCOUNTER → 2024-11-02 | Outpatient (CLI) | payer MEDICARE, MEDICAID, SELFPAY ==
[2024-11-02 09:09] LABS: Absolute Lymphocyte Count 3.72 X10^3/uL (0.83-4.51); Absolute Neutrophil Count 7.2 X10^3/uL (2.0-7.7); Basophil# 0.08 X10^3/uL; Basophil% 0.6 % (0-1); Eosinophil# 0.26 X10^3/uL; Eosinophils% 2.1 % (0-5); Hematocrit 40.1 % (40-54); Hemoglobin 13.5 g/dL (13.0-16.5); Lymphocyte # 3.72 X10^3/ul (0.83-4.51); Lymphocyte % 30.1 % (19-41); Mean Corp Hgb Conc 33.7 g/dL (32-36); Mean Corpuscular Hgb 31.3 pg (27.0-32.0); Mean Platelet Vol. 9.4 fl (6.2-12.0); Monocyte# 1.05 X10^3/uL; Monocyte% 8.5 % (0-10); NRBC Flagged by Analyzer 0 % (0-5); Neutrophil % 58.4 % (47-70); Platelet Count 375 K/mm3 (150-450); RBC Distribution Width CV 13.5 % (11.6-14.6); RBC Distribution Width SD 46.5 fl (35.1-43.9); Red Blood Count 4.31 M/mm3 (4.6-6.2); White Blood Count 12.4 K/mm3 (4.4-11.0)
[2024-11-02 09:55] LABS: ALB/GLOB Ratio 1.4 RATIO (0.9-2.4); AST(SGOT) 17 U/L (<=37); Alanine Aminotransfer ALT/SGPT 17 U/L (<=46); Albumin, Serum 4.2 g/dL (3.5-5.0); Alkaline Phosphatase 66 U/L (40-129); Ammonia 12.3 umol/L (16-60); Anion Gap 10 (5-15); BUN 10 mg/dL (4-19); BUN/Creat Ratio 13.9 RATIO (10-20); Calcium,Total 9.3 mg/dL (7.6-11.0); Carbon Dioxide 22.5 mmol/L (21.0-32.0); Chloride 109 mmol/L (98-108); Creatinine, Serum 0.69 mg/dL (0.70-1.20); EST Glomerular Filtration Rate 108 (>60); Glucose 98 mg/dL (70-99); Protein, Total 7.2 g/dL (5.9-8.4); Sodium Level 141 mmol/L (133-145); Total Bilirubin 0.15 mg/dL (0.00-1.30)
[2024-11-02 09:56] LABS: Valproic Acid (Depakene) Level 40 ug/mL (50-100)
== END | disposition home or self-care (01) ==
LOC: LAB 08:43
PROVIDERS: PCP Student in an Organized Health Care Education/Training Program; Referring Provider Psychiatry & Neurology Psychiatry; Visit Provider Psychiatry & Neurology Psychiatry
DX: Z79.899 Other long term (current) drug therapy (principal)
CPT/HCPCS: 36415; 80053; 80164; 82140; 85025

== ENCOUNTER → 2025-06-17 | Outpatient (CLI) | payer MEDICARE, MEDICAID, SELFPAY ==
[2025-06-17 09:47] LABS: Hematocrit 42.1 % (40-54); Hemoglobin 14.2 g/dL (13.0-16.5); Immature Granulocytes Count 0.020 X10^3/uL (0.0-0.0); Mean Corp Hgb Conc 33.7 g/dL (32-36); Mean Corpuscular Volume 91.7 fL (80-94); Mean Platelet Vol. 9.2 fl (6.2-12.0); NRBC Flagged by Analyzer 0 % (0-5); Platelet Count 373 K/mm3 (150-450); RBC Distribution Width CV 14.1 % (11.6-14.6); RBC Distribution Width SD 47.2 fl (35.1-43.9); Red Blood Count 4.59 M/mm3 (4.6-6.2); White Blood Count 13.2 K/mm3 (4.4-11.0)
[2025-06-17 10:37] LABS: Ammonia 11.5 umol/L (16-60)
[2025-06-17 10:41] LABS: AST(SGOT) 16 U/L (<=37); Alanine Aminotransfer ALT/SGPT 11 U/L (<=46); Albumin, Serum 4.5 g/dL (3.5-5.0); Alkaline Phosphatase 77 U/L (40-129); Anion Gap 13 (5-15); BUN 10 mg/dL (4-19); BUN/Creat Ratio 11.9 RATIO (10-20); Calcium,Total 9.8 mg/dL (7.6-11.0); Carbon Dioxide 24.0 mmol/L (21.0-32.0); Chloride 105 mmol/L (98-108); Globulin 2.9 g/dL (2.2-4.2); Glucose 104 mg/dL (70-99); Potassium 3.9 mmol/L (3.3-5.1); Valproic Acid (Depakene) Level 39 ug/mL (50-100)
== END | disposition home or self-care (01) ==
PROVIDERS: PCP Student in an Organized Health Care Education/Training Program; Referring Provider Psychiatry & Neurology Psychiatry; Visit Provider Psychiatry & Neurology Psychiatry
DX: Z79.899 Other long term (current) drug therapy (principal)
CPT/HCPCS: 36415; 80053; 80164; 82140; 85025